=== PATIENT | female | born 1945 | race Caucasian/White ===

== ENCOUNTER → 2019-11-18 09:58 | Outpatient (BNVA) | payer MEDICARE, OTHER, SELFPAY | PROVIDERS: Referring Provider Family Medicine; Visit Provider Internal Medicine | DX: R79.89 Other specified abnormal findings of blood chemistry (principal); E03.9 Hypothyroidism, unspecified; E04.2 Nontoxic multinodular goiter | CPT/HCPCS: 99203 ==

== ENCOUNTER 2019-12-10 09:51 | Outpatient (CLI) | payer MEDICARE, OTHER, SELFPAY ==
--- NOTE | 2019-12-10 10:15 | US_ITS ---
WS: [id number] Thyroid ultrasound, 12/10/2019 Clinical Data: thyroid nodules Comparison: None. Findings: The right lobe of thyroid measures 4.7 cm x 1.3 cm x 1.4 cm. The left lobe measures 4.7 cm x 1.3 cm x 0.9 cm. The isthmus measured 0.2 mm. The echotexture of the thyroid is heterogeneous. No nodules, cysts or masses are seen. US/US thyroid 69200 Impression: Heterogeneous echotexture of the thyroid with no distinct nodules.
[2019-12-10 11:19] LABS: Free T4 Free Thyroxine 0.81 ng/dL (0.82-1.77); Thyroid Stimulating Hormone 31.48 uIU/mL (0.27-4.20)
[2019-12-11 08:52] LABS: T3 Total 63 ng/dL (76-181)
[2019-12-13 15:43] LABS: Thyroglobulin AB 7 IU/mL (< or = 1); Thyroid Peroxidase Antobodies 6 IU/mL (<9)
[2019-12-14 18:42] LABS: TSH Receptor Binding Antibody 1.06 IU/L (< OR = 2.00)
== END 2019-12-10 09:52 | disposition home or self-care (01) ==
LOC: RAD 09:57
PROVIDERS: Visit Provider Internal Medicine
DX: E04.2 Nontoxic multinodular goiter (principal); R79.89 Other specified abnormal findings of blood chemistry; E03.9 Hypothyroidism, unspecified
CPT/HCPCS: 36415; 76536; 83516; 84439; 84443; 84480; 86376; 86800

== ENCOUNTER → 2019-12-21 09:46 | Outpatient (BNVA) | payer MEDICARE, OTHER, SELFPAY | PROVIDERS: Visit Provider Internal Medicine | DX: E03.9 Hypothyroidism, unspecified (principal); E06.3 Autoimmune thyroiditis; K90.9 Intestinal malabsorption, unspecified; R10.13 Epigastric pain | CPT/HCPCS: 99214 ==

== ENCOUNTER → 2020-01-13 09:22 | Outpatient (BNVA) | payer MEDICARE, OTHER, SELFPAY | PROVIDERS: Visit Provider Internal Medicine | DX: E03.9 Hypothyroidism, unspecified (principal); E06.3 Autoimmune thyroiditis; E16.2 Hypoglycemia, unspecified; K90.9 Intestinal malabsorption, unspecified; R10.13 Epigastric pain | CPT/HCPCS: 99215 ==

== ENCOUNTER → 2020-03-17 11:15 | Outpatient (BNVA) | payer MEDICARE, OTHER, SELFPAY | PROVIDERS: Visit Provider Internal Medicine | DX: E03.8 Other specified hypothyroidism (principal); E06.3 Autoimmune thyroiditis; E16.2 Hypoglycemia, unspecified; K90.9 Intestinal malabsorption, unspecified; R10.13 Epigastric pain; R63.5 Abnormal weight gain | CPT/HCPCS: 36415; 82533; 84439; 86376; 99214 ==

== ENCOUNTER 2020-03-17 12:09 | Outpatient (CLI) | payer MEDICARE, OTHER, SELFPAY ==
[2020-03-17 13:25] LABS: Free T4 Free Thyroxine 0.99 ng/dL (0.82-1.77)
[2020-03-17 13:47] LABS: Cortisol Random 3.17 ug/mL (2.47-19.5)
[2020-03-20 18:47] LABS: Thyroid Peroxidase Antobodies 5 IU/mL (<9)
== END 2020-03-17 12:10 | disposition home or self-care (01) ==
PROVIDERS: PCP Family Medicine; Visit Provider Internal Medicine
DX: E03.8 Other specified hypothyroidism (principal); E06.3 Autoimmune thyroiditis; E16.2 Hypoglycemia, unspecified
CPT/HCPCS: 36415; 82533; 84439; 86376

== ENCOUNTER 2020-06-15 11:17 | Outpatient (CLI) | payer MEDICARE, OTHER, SELFPAY ==
[2020-06-19 12:19] LABS: Total Volume Urine 1750 ml
[2020-06-19 12:31] LABS: Creatinine 24 Hour Urine 647.5 mg/dL (601-1689); Urine Creatinine 37 mg/dL (28-217)
[2020-06-22 19:03] LABS: Total Urine 1750 mL; Urine Creatinine 0.68 g/24 h (0.50-2.15)
== END 2020-06-15 11:18 | disposition home or self-care (01) ==
PROVIDERS: PCP Family Medicine; Visit Provider Internal Medicine
DX: E03.8 Other specified hypothyroidism (principal); E06.3 Autoimmune thyroiditis; R63.5 Abnormal weight gain
CPT/HCPCS: 82530; 82570; 99214

== ENCOUNTER → 2020-08-01 10:08 | Outpatient (BNVA) | payer MEDICARE, OTHER, SELFPAY | PROVIDERS: PCP Family Medicine; Visit Provider Specialist | DX: G30.9 Alzheimer's disease, unspecified (principal); F02.80 Dementia in other diseases classified elsewhere, unspecified severity, without behavioral disturbance, psychotic disturbance, mood disturbance, and anxiety; R20.0 Anesthesia of skin; R20.2 Paresthesia of skin; Z87.891 Personal history of nicotine dependence | CPT/HCPCS: 96116; 99205 ==

== ENCOUNTER 2020-08-09 13:56 | Outpatient (CLI) | payer MEDICARE, OTHER, SELFPAY ==
--- NOTE | 2020-08-09 14:45 | CT_ITS ---
WS: [id number] CT HEAD TECHNIQUE: Noncontrast CT of the head obtained from the skullbase to the vertex. CLINICAL INFORMATION: R20.0 - Anesthesia of skin COMPARISON: None. DLP: 827.[address] scans at [facility] use at least one of these dose optimization techniques: automat ed exposure control; mA and/or kV adjustment per patient size (includes targeted exams where dose is matched to clinical indication); or iterative reconstruction. FINDINGS: No evidence of intracranial hemorrhage or mass effect. Ventricular system and basal cisterns are brower nt. Mild small vessel changes with moderate parenchymal volume loss. Chronic lacunar infarct or promi nent perivascular space left lateral basal ganglia. No extra-axial fluid collections. No evidence of mass or mass effect. Cavernous carotid calcification. Paranasal sinuses and mastoid air cells are well aerated. .Normal visualized soft tissues. Incidental cerebellar tonsillar ectopia. CT/CT head wo con* [id number] IMPRESSION: 1. No evidence of intracranial hemorrhage or mass effect. 2. Mild small vessel changes. Moderate parenchymal volume loss. 3. Chronic lacunar infarct or prominent perivascular space left lateral basal ganglia. 4. Incidental cerebellar tonsillar ectopia. 5. No acute intracranial findings.
--- NOTE | 2020-08-09 15:29 | XR_ITS ---
WS: [id number] Left foot, 3 views, 08/09/2020 Clinical Data: Z79.899 - Other half-way (current) drug therapy Comparison: None. Findings: No fractures or dislocations are seen. No bone destruction or erosion is noted. There is osteoarthrit is of the left first MCP joint.There is a small plantar spur and Achilles spur. 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
--- NOTE | 2020-08-09 15:29 | XR_ITS ---
WS: [id number] Chest 2 views, 08/09/2020 Clinical Data: Z79.899 - Other termite technician (current) drug therapy Comparison: None. Findings: No nodules, masses or effusions are seen. The heart is normal. The pulmonary vascularity is not increased. No pneumonia or pneumothorax is seen. The aortic arch and descending aorta show mild tortuosity. There are calcified granulomas in the right hilum extending into the right lower lobe. Th ere is a dextroscoliosis of the midthoracic spine. XR/XR chest 2V* [id number] Impression: Atherosclerosis and old granulomatous disease.
--- NOTE | 2020-08-09 15:29 | XR_ITS ---
WS: [id number] Right hand, 3 views, 08/09/2020 Clinical Data: Z79.899 - Other custodial (current) drug therapy Comparison: None. Findings: No fractures or dislocations are seen. There is degenerative change of the right first IP joint and the second through fifth IP joints. There is degenerative change of the right second and t hird MCP joints. There is periarticular calcification around the head of the right third metacarpal. There is calcification of the triradiate cartilage. XR/XR hand RT min 3V* [id number] Impression: 1. Diffuse degenerative changes of the right first IP joint and second through fifth PIP joints. 2. Osteoarthritic changes of the right second and third MCP joints.
--- NOTE | 2020-08-09 15:29 | XR_ITS ---
WS: [id number] Right foot, 3 views, 08/09/2020 Clinical Data: Z79.899 - Other penitentiary (current) drug therapy Comparison: None. Findings: No fractures or dislocations are seen. No bone destruction or erosion is noted. There is osteoarthrit ic change at the first MTP joint.There is medial subluxation of the right second toe. There is a plan tar spur. XR/XR foot RT min 3V* [id number] Impression: Osteoarthritis of the first MTP joint of the right foot.
--- NOTE | 2020-08-09 15:29 | XR_ITS ---
WS: [id number] Left hand, 3 views, 08/09/2020 Clinical Data: Z79.899 - Other [facility] (current) drug therapy Comparison: None. Findings: No fractures or dislocations are seen. The soft tissues are unremarkable. There is osteoarthritic david nges of the DIP joints of the second through fifth fingers. There is osteoarthritis of the left secon d and third MCP joints. There is calcification in the triradiate cartilage. XR/XR hand LT min 3V* [id number] Impression: 1. Osteoarthritis of the second through fifth DIP joints of the left hand. 2. Osteoarthritis of the second and third MCP joints of the left hand
== END 2020-08-09 13:57 | disposition home or self-care (01) ==
LOC: RADWPI 14:00
PROVIDERS: PCP Family Medicine; Visit Provider Specialist
DX: M19.041 Primary osteoarthritis, right hand (principal); R20.0 Anesthesia of skin; M19.042 Primary osteoarthritis, left hand; R20.2 Paresthesia of skin; F03.90 Unspecified dementia, unspecified severity, without behavioral disturbance, psychotic disturbance, mood disturbance, and anxiety; Z11.59 Encounter for screening for other viral diseases; Z11.1 Encounter for screening for respiratory tuberculosis; Z87.891 Personal history of nicotine dependence; Z79.899 Other long term (current) drug therapy; M19.90 Unspecified osteoarthritis, unspecified site; E03.8 Other specified hypothyroidism; E06.3 Autoimmune thyroiditis; R79.89 Other specified abnormal findings of blood chemistry
CPT/HCPCS: 36415; 70450; 71046; 73130; 73630; 82306; 82565; 84439; 84443; 85025; 85651; 86038; 86140; 86431; 86480; 86704; 86803; 87340; 99204

== ENCOUNTER 2020-08-09 14:05 | Outpatient (CLI) | payer MEDICARE, OTHER, SELFPAY ==
[2020-08-09 15:11] LABS: Basophils % 0.8 %; Eosinophils # 0.1 10^3/uL (0.0-0.8); Eosinophils % 1.2 %; Hematocrit 39.8 % (37.0-47.0); Hemoglobin 13.3 g/dL (11.5-15.3); Lymphocytes # 1.3 10^3/uL (0.8-4.8); Lymphocytes % 26.9 %; Mean Corpuscular HGB Conc 33.4 g/dL (30.0-36.0); Mean Corpuscular Volume 95.7 fL (81-99); Mean Platelet Volume 12.8 fL (7.4-10.4); Monocytes # 0.5 10^3/uL (0.2-0.9); Monocytes % 9.3 %; Neutrophils # 3.04 10^3/uL (1.8-7.7); Neutrophils % 61.6 %; Nucleated Red Blood Cells % 0 %; Platelet Count 214 10^3/cmm (130-400); Red Blood Count 4.16 10^6/uL (4.1-5.3); Red Cell Distribution Width 12.6 % (12.1-15.1); White Blood Count 4.9 10^3/uL (4.0-10.0)
[2020-08-09 15:46] LABS: 25 Hydroxy Vitamin D 64 ng/mL (30-100); Thyroid Stimulating Hormone 1.08 uIU/mL (0.27-4.20)
[2020-08-09 16:11] LABS: Erythrocyte Sedimentation Rate 16 mm/hr (0-15)
[2020-08-09 16:19] LABS: Free T4 Free Thyroxine 1.49 ng/dL (0.82-1.77)
[2020-08-09 16:46] LABS: Hepatitis B Core AB, Total Non-Reactive (Nonreactive); Hepatitis B Surface Antigen Non-Reactive (Nonreactive); Hepatitis C Virus Antibody Non-Reactive (Nonreactive)
[2020-08-11 15:07] LABS: Quantiferon Mitogen 7.91 IU/mL; Quantiferon Nil 0.02 IU/mL; Quantiferon TB Gold NEGATIVE (NEGATIVE)
[2020-08-14 13:41] LABS: Cyclic Citrullinated Peptide <16 UNITS
[2020-08-15 14:23] LABS: Anti-Nuclear Antibody Pattern Nuclear, Speckled; Anti-Nuclear Antibody Screen POSITIVE (NEGATIVE); Anti-Nuclear Antibody Titer 1:40 titer
== END 2020-08-09 14:06 | disposition home or self-care (01) ==
PROVIDERS: PCP Family Medicine; Visit Provider Internal Medicine Rheumatology
DX: M19.90 Unspecified osteoarthritis, unspecified site (principal); Z11.59 Encounter for screening for other viral diseases; Z79.899 Other long term (current) drug therapy; E03.8 Other specified hypothyroidism; E06.3 Autoimmune thyroiditis; R79.89 Other specified abnormal findings of blood chemistry; Z11.1 Encounter for screening for respiratory tuberculosis
CPT/HCPCS: 36415; 82306; 82565; 84439; 84443; 85025; 85651; 86038; 86140; 86431; 86480; 86704; 86803; 87340

== ENCOUNTER → 2020-08-21 10:17 | Outpatient (BNVA) | payer MEDICARE, OTHER, SELFPAY | PROVIDERS: PCP Family Medicine; Visit Provider Specialist | DX: G30.9 Alzheimer's disease, unspecified (principal); F02.80 Dementia in other diseases classified elsewhere, unspecified severity, without behavioral disturbance, psychotic disturbance, mood disturbance, and anxiety; R56.9 Unspecified convulsions; Z87.891 Personal history of nicotine dependence | CPT/HCPCS: 95816 ==

== ENCOUNTER → 2020-09-13 15:07 | Outpatient (BNVA) | payer MEDICARE, OTHER, SELFPAY | PROVIDERS: PCP Nurse Practitioner Family; Visit Provider Internal Medicine Rheumatology | DX: M19.041 Primary osteoarthritis, right hand (principal); M19.042 Primary osteoarthritis, left hand; Z87.39 Personal history of other diseases of the musculoskeletal system and connective tissue; K90.9 Intestinal malabsorption, unspecified; Z79.899 Other long term (current) drug therapy; Z87.891 Personal history of nicotine dependence | CPT/HCPCS: 99214 ==

== ENCOUNTER → 2020-10-30 10:27 | Outpatient (BNVA) | payer MEDICARE, OTHER, SELFPAY | PROVIDERS: PCP Nurse Practitioner Family; Visit Provider Specialist | DX: G30.9 Alzheimer's disease, unspecified (principal); F02.80 Dementia in other diseases classified elsewhere, unspecified severity, without behavioral disturbance, psychotic disturbance, mood disturbance, and anxiety | CPT/HCPCS: 99213 ==

== ENCOUNTER 2020-11-22 13:24 | Outpatient (CLI) | payer MEDICARE, OTHER, SELFPAY ==
--- NOTE | 2020-11-22 14:11 | MR_ITS ---
WS: [id number] MRI LUMBAR SPINE NONCONTRAST HISTORY: SPINAL STENOSIS, DORSALGIA, SCOLIOSIS COMPARISON: 07/26/2014 TECHNIQUE: Sagittal and axial multisequence imaging is submitted. Moderate LEFT scoliosis lumbar spine with asymmetric disc space narrowing. No acute marrow edema or fracture. Severe disc space narrowing and desiccation with endplate osteophytes. Conus terminates normally at L1. L1-L2: Severe bilateral facet joint arthritis, RIGHT greater than LEFT. Moderate stenosis involving t he RIGHT foramen. Mild stenosis on the LEFT. L2-L3: Severe bilateral facet joint arthritis and ligamentum flavum arthritis. Asymmetric and most si gnificant on the RIGHT. There is encroachment into the thecal sac with disc and osteophyte narrowing of the RIGHT foramen which is moderate. Mild narrowing on the LEFT. L3-L4: Diffuse annular disc bulging and osteophytic ridging. Small central disc protrusion contacting the RIGHT traversing L4 nerve root. Marked RIGHT facet joint arthritis and ligamentum flavum hypertr ophy causing moderate RIGHT foraminal stenosis and mild on the LEFT. L4-L5: Diffuse moderate asymmetric disc bulging with osteophytosis and ligamentum flavum and facet ar thritis. Slightly greater facet joint arthritis on the LEFT. Moderate central and RIGHT foraminal lucinda nosis. Severe LEFT foraminal stenosis. Disc and osteophyte contacting the L5 nerve roots bilaterally but greatest on the LEFT. L5-S1: Diffuse asymmetric disc bulging. Severe facet joint arthritis and ligamentum flavum hypertroph y, greatest on the LEFT. Severe LEFT and mild RIGHT foraminal stenosis. Mild contact on the S1 nerve roots. Prior RIGHT L5 hemilaminectomy. As compared to the prior study from 2014 there is been a moderate progression in the facet joint arth ritis, scoliosis and stenoses. MR/MR lumbar spine wo con* [id number] IMPRESSION: 1. LEFT convex scoliosis with advancing facet disease, disc disease and stenos es. 2. Moderate RIGHT foraminal stenosis at L1-2 and L2-3. 3. Moderate RIGHT foraminal stenosis at L3-4 with a central disc protrusion co ntacting the RIGHT traversing L4 nerve root. 4. Severe LEFT foraminal stenosis at L4-5 due to disc and osteophyte disease a nd facet arthritis. 5. Moderate central and RIGHT foraminal stenosis at L4-5. 6. Severe LEFT and mild RIGHT foraminal stenosis at L5-S1. Disc is contacting the S1 nerve roots bilaterally.
--- NOTE | 2020-11-22 14:11 | MR_ITS ---
WS: [id number] MRI THORACIC SPINE noncontrast. HISTORY: SPINAL STENOSIS, DORSALGIA, SCOLIOSIS COMPARISON: None available. TECHNIQUE: Multiplanar sequences are performed in sagittal and axial planes. Mild RIGHT curvature thoracic spine. No retropulsion of the vertebral bodies. Mild narrowing of the d isc spaces throughout. No marrow edema or fractures within the thoracic spine. Signal within the cord is normal. No cord enlargement or atrophy. Conus tapers normally and ends near T12-L1. T1-2: Normal. T2-3: Moderate facet joint arthritis on the RIGHT causing moderate RIGHT foraminal stenosis. T3-4: Moderate RIGHT foraminal arthritis causing mild narrowing. T4-5: Moderate RIGHT facet arthritis. Mild foraminal narrowing. T5-6: Mild bilateral foraminal arthritis. Only minimal narrowing on the LEFT. T6-7: LEFT paracentral disc protrusion and mild bilateral foraminal narrowing. T7-8: Small LEFT paracentral disc protrusion and mild bilateral facet arthritis. Mild foraminal narr owing. T8-9: Bilateral facet joint arthritis. Moderate RIGHT foraminal narrowing. T9-10: Mild bilateral foraminal narrowing due to facet joint arthritis. T10-11: Mild bilateral facet joint arthritis and foraminal narrowing. T11-12: Normal. T12-L1: Broad-based central disc protrusion contacting and very slightly deforming the ventral thecal sac. Mild foraminal narrowing. Atherosclerosis aorta. No aneurysm. MR/MR thoracic spin wo con* [id number] IMPRESSION: 1. Mild RIGHT curvature thoracic spine. 2. Multilevel mild to moderate facet joint arthritis and disc disease. No acut e fractures. No severe central or foraminal stenosis. 3. Multilevel facet joint arthritis causing multilevel mild foraminal narrowin g as above. Most significant on the RIGHT at T2-3 is moderate. 4. Small LEFT paracentral disc protrusions at T6-7 and T7-8.
== END 2020-11-22 13:25 | disposition home or self-care (01) ==
PROVIDERS: PCP Nurse Practitioner Family; Visit Provider Nurse Practitioner Family
DX: M48.00 Spinal stenosis, site unspecified (principal); M41.9 Scoliosis, unspecified; M51.24 Other intervertebral disc displacement, thoracic region; M51.34 Other intervertebral disc degeneration, thoracic region; M47.814 Spondylosis without myelopathy or radiculopathy, thoracic region; M48.07 Spinal stenosis, lumbosacral region; M48.061 Spinal stenosis, lumbar region without neurogenic claudication; M25.78 Osteophyte, vertebrae; M51.26 Other intervertebral disc displacement, lumbar region; M51.36 Other intervertebral disc degeneration, lumbar region
CPT/HCPCS: 72146; 72148

== ENCOUNTER → 2020-12-07 13:01 | Outpatient (BNVA) | payer MEDICARE, OTHER, SELFPAY | PROVIDERS: PCP Nurse Practitioner Family; Referring Provider Nurse Practitioner Family; Visit Provider Anesthesiology Pain Medicine | DX: G89.29 Other chronic pain (principal); M19.041 Primary osteoarthritis, right hand; M19.042 Primary osteoarthritis, left hand; M47.816 Spondylosis without myelopathy or radiculopathy, lumbar region; M47.814 Spondylosis without myelopathy or radiculopathy, thoracic region; M51.36 Other intervertebral disc degeneration, lumbar region; Z79.899 Other long term (current) drug therapy | CPT/HCPCS: 99205 ==

== ENCOUNTER → 2020-12-11 14:50 | Outpatient (BNVA) | payer MEDICARE, OTHER, SELFPAY | PROVIDERS: PCP Nurse Practitioner Family; Visit Provider Anesthesiology Pain Medicine | DX: M54.16 Radiculopathy, lumbar region (principal) | CPT/HCPCS: 64483; 64484; J1100; J3490 ==

== ENCOUNTER → 2020-12-14 13:22 | Outpatient (BNVA) | payer MEDICARE, OTHER, SELFPAY | PROVIDERS: PCP Nurse Practitioner Family; Visit Provider Anesthesiology Pain Medicine | DX: M48.062 Spinal stenosis, lumbar region with neurogenic claudication (principal); M47.816 Spondylosis without myelopathy or radiculopathy, lumbar region; M51.36 Other intervertebral disc degeneration, lumbar region; M47.814 Spondylosis without myelopathy or radiculopathy, thoracic region; M19.041 Primary osteoarthritis, right hand; M19.042 Primary osteoarthritis, left hand | CPT/HCPCS: 99214 ==

== ENCOUNTER → 2021-01-02 15:10 | Outpatient (BNVA) | payer MEDICARE, OTHER, SELFPAY | PROVIDERS: PCP Nurse Practitioner Family; Visit Provider Physician Assistant | DX: M51.36 Other intervertebral disc degeneration, lumbar region (principal) | CPT/HCPCS: 72110 ==

== ENCOUNTER → 2021-02-16 09:14 | Outpatient (BNVA) | payer MEDICARE, OTHER, SELFPAY | PROVIDERS: PCP Nurse Practitioner Family; Referring Provider Obstetrics & Gynecology; Visit Provider Obstetrics & Gynecology | DX: Z20.822 Contact with and (suspected) exposure to COVID-19 (principal); M48.062 Spinal stenosis, lumbar region with neurogenic claudication | CPT/HCPCS: 87635 ==

== ENCOUNTER 2021-02-21 06:48 | Day surgery (SDC) | payer MEDICARE, OTHER, SELFPAY ==
--- NOTE | 2021-02-19 11:44 | ANES.PREANE2 ---
Pre-Anesthetic Assessment Pre-Anesthetic Assessment: Height/Weight: Height 1.55 m Weight 72.121 kg Preop Diagnosis: Back pain Proposed Procedure: Operation Date: 02/21/21 10:20 Proposed Procedures p Lumbar Spine Decompression [id number](Not Applicable) - Brendon Rubin DO Familial anesthetic complications: none Social: Social History: No alcohol and No tobacco Exam: Pre-Anes Outpt Exam: alert, oriented x 3, clear to auscultation bilaterally and regular rate & rhythm Airway: MP: 1 Dentition: Other (veneers) Musc/skel: Musc/skel: Fibromyalgia and OA/DJD Anesthetic Plan: ASA status: 2 Anesthesia: General Risk of > 500 ml blood loss (7ml/kg in children): No PFSH Anesthesia PFSH: Medical History Cataract Fibromyalgia GERD (gastroesophageal reflux disease) High risk medication use History of calcium pyrophosphate deposition disease (CPPD) Hyperlipidemia Immunization counseling Inflammatory arthritis Osteoarthritis Osteoarthritis of hands, bilateral Raynauds disease Surgical History H/O: hysterectomy History of appendectomy History of back surgery History of cholecystectomy Family History Father Diabetes Embolism Mother Diabetes Stroke Sister No problems noted. Sister Cancer breast Diabetes Kidney failure Brother Cancer lung? Other Lupus Rheumatoid arthritis Denies family history of CAD (coronary artery disease) Chronic kidney disease (CKD) Lung disease Social History Smoking and tobacco status: never smoked Second hand smoke exposure: No Alcohol intake: former Caregiver/support person: Yes Lives independently: Yes History of recent travel: No Data Anesthesia Cardiac Studies: No Data to Display
--- NOTE | 2021-02-19 11:46 | P.ANESUD_ITS ---
Pre-Anesthetic Update Pre-Anesthetic Assessment: Date of Surgery/Procedure: 02/19/21 Preop Carly gnosis: Back pain Proposed Procedure: Operation Date: 02/21/21 10:20 Proposed Procedures p Lumbar Spine Decompression [id number](Not Applicable) - Brendon Rubin DO Other Pertinent Information: Other Pertinent Information: Patient states her veneers got knocked out with last aneshtesia Cardiac Studies: No Data to Display
--- NOTE | 2021-02-19 11:46 | ANES.PAUD2 ---
Pre-Anesthetic Update Pre-Anesthetic Assessment: Date of Surgery/Procedure: 02/19/21 Preop Diagnosis: Back pain Proposed Procedure: Operation Date: 02/21/21 10:20 Proposed Procedures p Lumbar Spine Decompression [id number](Not Applicable) - Brendon Rbuin DO Other Pertinent Information: Other Pertinent Information: Patient states her veneers got knocked out with last aneshtesia Cardiac Studies: No Data to Display
[2021-02-19 12:27] LABS: Anion Gap 15.2 (5-19); Blood Urea Nitrogen 25 mg/dL (8-23); Carbon Dioxide 26 mmol/L (22-29); Chloride 98 mmol/L (98-107); Glucose 143 mg/dL (65-115); Osmolality Calculated 289 mOsm/kg (285-295); Potassium 3.2 mmol/L (3.5-5.1); Sodium 136 mmol/L (136-145)
[2021-02-21] VITALS (16 sets, daily range): BP systolic 131–161; BP diastolic 67–104; PULSE 58–112; RESP 14–26; TEMP 36.1–37.1; O2SAT 88–100
--- NOTE | 2021-02-21 | SCC_ITS ---
Procedure Done: 1. Right L3/4 laminectomy with partial facetectomy 2. Right L4/5 laminectomy with partial facetectomy 20.5 seconds of fluoroscopic guidance, for a cumulative dose of 5.95 mGy, was provided to Dr. Rubin by the radiology department. C-arm images of the lumbar spine were saved for the patient's permanent record. [facility]
--- NOTE | 2021-02-21 | XR_ITS ---
WS: [id number] C-ARM RADIOGRAPHS LUMBAR SPINE; 3 IMAGES HISTORY: decompression COMPARISON: None available. Intraoperative decompression of the lumbar spine. Marker is at the L3-4 level. XR/XR lumbar spine 1V [id number] IMPRESSION: Intraoperative lumbar spine decompression.
--- NOTE | 2021-02-21 06:48 | P.HP_ITS ---
Providers/Chief Complaint Primary Care Provider: Emerita Johnson NP Chief Complaint: lumbar decompression History of Present Illness Joana Maloney is a 75 year old female The patient states she has had back pain for years and a low back procedure that helped her for about 1 year. She reports equal back and leg pain with inability to walk distance due to the increased pain she is experiencing. She denies any specific injury. She has been involved in the pain clinic with different injections without much relief long- term. She was previously in a spinal cord stimulator trial but did not gain much relief and would not have that implanted. She describes her back pain is sharp stabbing aching. She reports numbness and tingling with weakness down both lower extremities. She denies any loss of bowel or bladder control.. The pain had gotten better but came back several months ago, Associated symptoms: Denies abdominal pain, chills, fatigue, fever(s), nausea or vomiting Review of Systems Narrative: General ROS: negative for weight changes, fever ENT ROS: negative for nasal congestion, drainage or bleeding, sore throat, dysphagia or ear pain Eyes: PERRL Hematological and Lymphatic ROS: negative for swollen glands or abnormal bleed ing Endocrine ROS: negative for polyuria/polydpsia or new changes in weight Respiratory ROS: negative for cough, shortness of breath, or wheezing Cardiovascular ROS: negative for chest pain or dyspnea on exertion Gastrointestinal ROS: negative for reflux, abdominal pain, change in bowel habits, or black or bloody stools Musculoskeletal ROS: negative for back pain, neck pain, or joint pain or swell ing except for current problem Neurological ROS: negative for TIA or stoke symptoms Skin: no rashes Medications/Allergies Home Medications Medication Instructions Recorded Confirmed Last Taken Type acetaminophen 500 mg tablet 500 mg PO Q6H PRN 11/18/19 02/19/21 Unknown History atorvastatin 40 mg tablet 40 mg PO DAILY 11/18/19 02/19/21 Unknown History dexlansoprazole 60 mg 60 mg PO DAILY 11/18/19 02/19/21 Unknown History capsule,biphase delayed release hydrochlorothiazide 25 mg tablet 25 mg PO DAILY 11/18/19 02/19/21 Unknown History metoprolol succinate 25 mg 25 mg PO DAILY 11/18/19 02/19/21 Unknown History tablet,extended release 24 hr famotidine 20 mg tablet 20 mg PO BID #180 tab 01/13/20 02/19/21 Unknown Rx levothyroxine 88 mcg tablet 88 mcg PO DAILY #90 tab 07/11/20 02/19/21 Unknown Rx Lactobacillus acidophilus 10,000 mmu cells PO DAILY 08/01/20 02/19/21 Unknown History krill 350 mg-omega-3 90 mg-dha 24 1 cap PO DAILY cap 08/01/20 02/19/21 Unknown History mg-epa 50 fx-itmtzka-bwrrg capsule diclofenac sodium 1 % topical gel 2 g TOPICAL QID #100 g 08/09/20 02/19/21 Un known Rx celecoxib 50 mg capsule 50 mg PO BID 12/07/20 02/19/21 Unknown History ibuprofen 200 mg capsule 200 mg PO Q6H PRN 12/07/20 02/19/21 Unknown History gabapentin 800 mg tablet 800 mg PO TID #90 tab 12/14/20 02/19/21 Unknown Rx donepezil 5 mg tablet 5 mg PO DAILY #90 tab 12/27/20 02/19/21 Unknown Rx DME medical bed #1 ea 01/19/21 Unknown Rx Medical Bed #1 ea 01/19/21 Unknown Rx Allergies Allergy/AdvReac Type Severity Reaction Status Date / Time Androgenic Anabolic Steroid Allergy ADR-Headach Verified 01/02/21 14:53 e PFSH Acute PFSH: Medical History Cataract Fibromyalgia GERD (gastroesophageal reflux disease) High risk medication use History of calcium pyrophosphate deposition disease (CPPD) Hyperlipidemia Immunization counseling Inflammatory arthritis Osteoarthritis Osteoarthritis of hands, bilateral Raynauds disease Surgical History H/O: hysterectomy History of appendectomy History of back surgery History of cholecystectomy Family History Father Diabetes Embolism Mother Diabetes Stroke Sister No problems noted. Sister Cancer breast Diabetes Kidney failure Brother Cancer lung? Other Lupus Rheumatoid arthritis Denies family history of CAD (coronary artery disease) Chronic kidney disease (CKD) Lung disease Social History Smoking and tobacco status: never smoked Second hand smoke exposure: No Alcohol intake: former Caregiver/support person: Yes Lives independently: Yes History of recent travel: No Vitals/I&O/Wt Weight last 48 hrs Weight 159 lb Physical Exam Narrative: EXAM NARRATIVE: CONSTITUTIONAL: The patient is a normal appearing [ ] in no apparent distress. GENERAL: Patient in no acute distress. CARDIAC: Regular rate and rhythm. CHEST: Normal inspiratory effort, normal respiratory rate. ABDOMEN: Soft and nontender. SKIN: Clear, warm and intact. NEURO?PSYCH: The patient is alert and oriented to person, place and time. Sensorv /SILT Motor StrengthShoulder abduction C5 5/5Wrist extension C6 5/5Elbow extension C7 5/5Hand Interface Engineer C8 5/5Finger abduction T15/5 Radial/ Ulnar/ Median n intact LowerSensory (SILT)Motor StrengthHin flexion L2/3Ant/inner thigh 5/5Hip adduction L2/3 5/5Knee extension L4 Lat thigh, 5/5Toe dorsiflexion L5 5/5Ankle dorsiflexion L5/ [id number] flexion S1 5/5 DTRBleeps 2+Triceps 2+Brachioradialis 2+Patellar 2+Achilles 2+ MUSCULOSKELETAL: [] UPPEREXTREMITIES: The patient had full active ROM in fingers, wrist, elbow, and shoulder. The patient demonstrated ability to fully flex/extend/abduc t/adduct fingers, make ok sign, cross 2nd/3rd digits, extend 1st digit fully.. Radial pulse 2+, CR<2 seconds. LOWER EXTREMITIES: Pt has full, active ROM of toes, ankle, knee, and hip. Dorsalis pedis/posterior tibialis pulses 2+, CR<2 seconds. SPINE: Skin warm, dry, intact. Data : 02/19/21 11:22 A&P Assessment and plan (1) Lumbar stenosis with neurogenic claudication: Lumbar decompression Status: Acute Attestations Medical Necessity Statement*: failed conservative tx Coding Level of Care Code Acute Corporate Attorney for [facility] F[facility] Diagnoses Lumbar stenosis with neurogenic claudication M48.062
[2021-02-21] MEDS: sodium chloride 0.9% 1,000 ML 30 ML IV (07:42)
--- NOTE | 2021-02-21 07:48 | P.ANESUD_ITS ---
Pre-Anesthetic Update Pre-Anesthetic Assessment: Date of Surgery/Procedure: 02/21/21 Preop Carly gnosis: Lumbar stenosis with neurogenic claudication Proposed Procedure: Operation Date: 02/21/21 08:30 Proposed Procedures p Lumbar Spine Decompression [id number] 47539(Not Applicable) - Brendon Rubin, DO Any changes to Pre-Anesthetic Assessment?: No Last Intake: Intake Last Liquid Date 02/20/21 Last Liquid Time 18:00 Last Solid Date 02/20/21 Last Solid Time 18:00 Labs Last 48hrs: Laboratory Results - last 48 hr 02/19/21 11:22 Sodium 136 Potassium 3.2 L Chloride 98 Carbon Dioxide 26 Anion Gap 15.2 BUN 25 H Creatinine 1.1 H GFR Calculation Not Reportable Glucose 143 H Calculated Osmolal ity 289 Calcium 9.0 Vitals: Temperature 97 F L 02/21/21 07:14 Temperature Source Temporal Artery S can 02/21/21 07:14 Pulse Rate 58 L 02/21/21 07:14 Respiratory Rate 18 02/21/21 07:14 Blood Pressure 144/87 02/21/21 07:14 Blood Pressure Suzanne n 106 02/21/21 07:14 Pulse Oximetry 98 02/21/21 07:14 Oxygen Delivery Me thod 02/21/21 07:18 Exam: Pre-Anes Outpt Exam: alert, oriented x 3, clear to auscultation bilaterally and regular rate & rhythm Cardiac Studies: No Data to Display
--- NOTE | 2021-02-21 09:25 | SUR.PHASEI ---
PT ON RA , GOOD RESP NOTED SATS 97% PT DENIES PAIN AND NAUSEA, PT VSS PT ABLE TO MOVE ALL EXTREMITIES TO COMMAND AND STRONGLY
--- NOTE | 2021-02-21 09:31 | PM.OP ---
Operative Report Date of procedure: February 21, 2021 Pre-op Diagnosis: Lumbar stenosis with neurogenic claudication Post-op diagnosis: same Procedure Done: 1. Right L3/4 laminectomy with partial facetectomy 2. Right L4/5 laminectomy with partial facetectomy Surgeon: Brendon Rubin Web Ui Designer: Joe Watkins Web Ui Designer: The surgical elastic knitter hand frame, Joe Watkins, AIYANA was needed for his expertise under the microscope. He was important and necessary throughout the procedure to complete in a safe and timely manner. He assisted with patient positioning prepping and draping tissue retraction suctioning of the operative field protection of the dural sac and tissue closure Anesthesia: General Estimated blood loss (mL): 5 Condition: stable Disposition: PACU Procedure: Patient is brought to the operative suite. After undergoing anesthesia they are placed in the prone position. All areas of impingement are well padded. Patient is then prepped and draped in the normal sterile fashion. A skin incision is made over the L3/4 level. This is confirmed under c-arm guidance. A series of dilators are passed and the tubular retractor is docked on the L3 lamina. A bovie is used to clear the soft tissue off the lamina and the L 3/4 facet joint. A high speed jessica is then used to perform the laminectomy and take down the medial aspect of the L 3/4 facet joint. A kerrison rongeure was then used to take down the remaining lamina and smooth the edge of the laminectomy up to the point where the ligamentum flavum attaches. Attention was then brought to the medial aspect of the facet joint. The remaining medial aspect of the superior and inferior aspect of the facet joint were taken down with the kerrison from the pedicle of L3 to L 4. The facet joint had significant hypertrophy. Attention was then brought to the Ligamentum Flavum. The ligament was taken down from the lamina of L3 to L4 and out medially to the remaining facet joint. The ligament was scarred down. The dura was then exposed. The dura was in good repair. The L3 nerve was then traced with a curette out the L3/4 foramen and found to be adequately decompressed. The L4 nerve was traced with a curette around the L4 pedicle. The lateral recess was opened with a kerrison helping to further decompress the L4 nerve. A skin incision is made over the L4/5 level. This is confirmed under c-arm guidance. A series of dilators are passed and the tubular retractor is docked on the L4 lamina. A bovie is used to clear the soft tissue off the lamina and the L 4/5 facet joint. A high speed jessica is then used to perform the laminectomy and take down the medial aspect of the L 4/5 facet joint. A kerrison rongeure was then used to take down the remaining lamina and smooth the edge of the laminectomy up to the point where the ligamentum flavum attaches. Attention was then brought to the medial aspect of the facet joint. The remaining medial aspect of the superior and inferior aspect of the facet joint were taken down with the kerrison from the pedicle of L4 to L 5. The facet joint had significant hypertrophy. Attention was then brought to the Ligamentum Flavum. The ligament was taken down from the lamina of L4 to L5 and out medially to the remaining facet joint. The ligament was thick. The dura was then exposed. The dura was in good repair. The L4 nerve was then traced with a curette out the L4/5 foramen and found to be adequately decompressed. The L5 nerve was traced with a curette around the L5 pedicle. The lateral recess was opened with a kerrison helping to further decompress the L5 nerve. Wound is then irrigated copiously with saline and surgiflo is used to stop any bleeding. The tubular retractor is removed and the wound is closed with vicryl and monocryl suture. Glue is then used to protect the wound. A sterile dressing is then placed. Patient was then placed in the supine position and transferred to the PACU in stable condition.
[2021-02-21] MEDS: meperidine 50 mg/mL INJ 12.5 MG IVP ×2 (09:47→09:54)
--- NOTE | 2021-02-21 10:16 | SUR.PHASEI ---
0947 PT SHIVERING HARD UNCONTROLLED WARM BLANKETS EARLIER AND REPEATED NOW SEE MED GIVEN 0953 PT STILL SHIVERING UNCONTROLLABLY , SEE MED REPEATED 1011 PT NOT SHIVERING NOW, SLEEPS IF NOT DISTURBED SATS DOWN TO 90% 3LNC TO PT , PT AWAKES EASILY SATS 99% PT TO OPS, HANDOFF AT BEDSIDE DRESSING TO LOWER BACK D/I
[2021-02-21] MEDS: HYDROcodone-acetaminophen 5-325 mg Tablet 1 TAB PO (10:52)
--- NOTE | 2021-02-21 11:46 | ANE.PACU2 ---
Inpatient post-anesthesia follow up: Airway intact: Yes Vital signs: Temperature 98.7 F Pulse Rate 77 Respiratory Rate 18 Blood Pressure 135/85 Pulse Oximetry 98 Oxygen Delivery Me thod Room Air Oxygen Flow Rate 1 Fraction of Inspir ed Oxygen Hydration adequate: Yes Nausea and vomiting: No Pain level: 3 Mental status: Baseline
== END 2021-02-21 11:14 | disposition home or self-care (01) ==
PROVIDERS: Anesthesiology; PCP Nurse Practitioner Family; Visit Provider Orthopaedic Surgery
PROC: (CPT 63005; principal; 2021-02-21 08:30)
DX: M48.062 Spinal stenosis, lumbar region with neurogenic claudication (principal); M79.7 Fibromyalgia; K21.9 Gastro-esophageal reflux disease without esophagitis; E78.5 Hyperlipidemia, unspecified; M19.042 Primary osteoarthritis, left hand; M19.041 Primary osteoarthritis, right hand; Z83.3 Family history of diabetes mellitus; Z82.3 Family history of stroke
CPT/HCPCS: 63047; 63048; 36415; 72020; 76000; 80048; J0690; J1100; J2175; J2370; J2405; J2704; J2710; J3010; J3490; J7030

== ENCOUNTER → 2021-05-08 14:01 | Outpatient (BNVA) | payer MEDICARE, OTHER, SELFPAY | PROVIDERS: PCP Nurse Practitioner Family; Visit Provider Orthopaedic Surgery | DX: Z48.89 Encounter for other specified surgical aftercare (principal); M48.062 Spinal stenosis, lumbar region with neurogenic claudication; M47.896 Other spondylosis, lumbar region | CPT/HCPCS: 72110 ==

== ENCOUNTER → 2021-05-10 14:00 | Outpatient (BNVA) | payer MEDICARE, OTHER, SELFPAY | PROVIDERS: PCP Nurse Practitioner Family; Referring Provider Orthopaedic Surgery; Visit Provider Anesthesiology Pain Medicine | DX: M48.062 Spinal stenosis, lumbar region with neurogenic claudication (principal); M47.816 Spondylosis without myelopathy or radiculopathy, lumbar region; M47.814 Spondylosis without myelopathy or radiculopathy, thoracic region; M51.36 Other intervertebral disc degeneration, lumbar region; M19.041 Primary osteoarthritis, right hand; M19.042 Primary osteoarthritis, left hand; M25.561 Pain in right knee; Z79.891 Long term (current) use of opiate analgesic | CPT/HCPCS: 99214 ==

== ENCOUNTER → 2021-07-03 10:43 | Outpatient (BNVA) | payer MEDICARE, OTHER, SELFPAY | PROVIDERS: PCP Nurse Practitioner Family; Visit Provider Anesthesiology Pain Medicine | DX: M48.062 Spinal stenosis, lumbar region with neurogenic claudication (principal); M51.36 Other intervertebral disc degeneration, lumbar region; M47.816 Spondylosis without myelopathy or radiculopathy, lumbar region; M47.814 Spondylosis without myelopathy or radiculopathy, thoracic region; M19.042 Primary osteoarthritis, left hand; M19.041 Primary osteoarthritis, right hand; M25.561 Pain in right knee; M79.604 Pain in right leg; M79.605 Pain in left leg; Z87.891 Personal history of nicotine dependence | CPT/HCPCS: 99214 ==

== ENCOUNTER → 2021-07-10 13:02 | Outpatient (BNVA) | payer MEDICARE, OTHER, SELFPAY | PROVIDERS: PCP Nurse Practitioner Family; Visit Provider Anesthesiology Pain Medicine | DX: M48.062 Spinal stenosis, lumbar region with neurogenic claudication (principal); M47.816 Spondylosis without myelopathy or radiculopathy, lumbar region | CPT/HCPCS: 64493; 64494; 64495; J3490 ==

== ENCOUNTER → 2021-07-24 09:55 | Outpatient (BNVA) | payer MEDICARE, OTHER, SELFPAY | PROVIDERS: PCP Nurse Practitioner Family; Visit Provider Anesthesiology Pain Medicine | DX: M48.062 Spinal stenosis, lumbar region with neurogenic claudication (principal); M51.36 Other intervertebral disc degeneration, lumbar region; M47.816 Spondylosis without myelopathy or radiculopathy, lumbar region; M47.814 Spondylosis without myelopathy or radiculopathy, thoracic region; M19.041 Primary osteoarthritis, right hand; M19.042 Primary osteoarthritis, left hand; M17.11 Unilateral primary osteoarthritis, right knee; M79.601 Pain in right arm; M79.605 Pain in left leg; Z87.891 Personal history of nicotine dependence | CPT/HCPCS: 99214 ==

== ENCOUNTER → 2021-08-20 13:22 | Outpatient (BNVA) | payer MEDICARE, OTHER, SELFPAY | PROVIDERS: PCP Nurse Practitioner Family; Referring Provider Nurse Practitioner Family; Visit Provider Otolaryngology | DX: H90.3 Sensorineural hearing loss, bilateral (principal); H93.13 Tinnitus, bilateral | CPT/HCPCS: 99203; 99204 ==

== ENCOUNTER → 2021-11-19 09:49 | Outpatient (BNVA) | payer MEDICARE, OTHER, SELFPAY | PROVIDERS: PCP Nurse Practitioner Family; Visit Provider Specialist | DX: G31.84 Mild cognitive impairment of uncertain or unknown etiology (principal); R20.0 Anesthesia of skin; R20.2 Paresthesia of skin; M19.90 Unspecified osteoarthritis, unspecified site | CPT/HCPCS: 36415; 82550; 82607; 85651; 86160; 86162; 86200; 86235; 86255; 86376; 96116; 99214 ==

== ENCOUNTER → 2021-12-17 08:42 | Outpatient (BNVA) | payer MEDICARE, OTHER, SELFPAY | PROVIDERS: PCP Nurse Practitioner Family; Visit Provider Anesthesiology Pain Medicine | DX: M48.062 Spinal stenosis, lumbar region with neurogenic claudication (principal); M47.816 Spondylosis without myelopathy or radiculopathy, lumbar region; M47.814 Spondylosis without myelopathy or radiculopathy, thoracic region; M51.36 Other intervertebral disc degeneration, lumbar region; M25.561 Pain in right knee; M79.604 Pain in right leg; M79.605 Pain in left leg; M19.041 Primary osteoarthritis, right hand; M19.042 Primary osteoarthritis, left hand | CPT/HCPCS: 99214 ==

== ENCOUNTER → 2022-01-01 09:28 | Outpatient (BNVA) | payer MEDICARE, OTHER, SELFPAY | PROVIDERS: PCP Nurse Practitioner Family; Visit Provider Anesthesiology Pain Medicine | DX: M48.062 Spinal stenosis, lumbar region with neurogenic claudication (principal); M47.816 Spondylosis without myelopathy or radiculopathy, lumbar region; M51.36 Other intervertebral disc degeneration, lumbar region; M47.814 Spondylosis without myelopathy or radiculopathy, thoracic region; M19.042 Primary osteoarthritis, left hand; M19.041 Primary osteoarthritis, right hand; M25.561 Pain in right knee; Z87.891 Personal history of nicotine dependence | CPT/HCPCS: 99214 ==

== ENCOUNTER → 2022-01-15 12:53 | Outpatient (BNVA) | payer MEDICARE, OTHER, SELFPAY | PROVIDERS: PCP Nurse Practitioner Family; Visit Provider Anesthesiology Pain Medicine | DX: M47.816 Spondylosis without myelopathy or radiculopathy, lumbar region (principal); M48.062 Spinal stenosis, lumbar region with neurogenic claudication; Z87.891 Personal history of nicotine dependence | CPT/HCPCS: 64493; 64494; 64495; J3490 ==

== ENCOUNTER → 2022-02-04 10:05 | Outpatient (BNVA) | payer MEDICARE, OTHER, SELFPAY | PROVIDERS: PCP Nurse Practitioner Family; Visit Provider Anesthesiology Pain Medicine | DX: M48.062 Spinal stenosis, lumbar region with neurogenic claudication (principal); M47.816 Spondylosis without myelopathy or radiculopathy, lumbar region; M47.814 Spondylosis without myelopathy or radiculopathy, thoracic region; M51.36 Other intervertebral disc degeneration, lumbar region; M19.041 Primary osteoarthritis, right hand; M19.042 Primary osteoarthritis, left hand; M79.604 Pain in right leg; M79.605 Pain in left leg; M25.561 Pain in right knee; Z87.891 Personal history of nicotine dependence | CPT/HCPCS: 99214 ==

== ENCOUNTER 2022-03-27 06:00 | Outpatient (RCR) | payer MEDICARE, MEDICAID, OTHER, SELFPAY | END 2022-03-30 23:59 | disposition home or self-care (01) | LOC: MPT 06:00 | PROVIDERS: PCP Nurse Practitioner Family; Visit Provider Nurse Practitioner Family | DX: M54.50 Low back pain, unspecified (principal); M48.061 Spinal stenosis, lumbar region without neurogenic claudication; M79.7 Fibromyalgia | CPT/HCPCS: 97110; 97162 ==

== ENCOUNTER 2022-03-31 06:00 | Outpatient (RCR) | payer MEDICARE, OTHER, MEDICAID, SELFPAY | END 2022-04-30 23:59 | disposition home or self-care (01) | LOC: MPT 06:00 | PROVIDERS: PCP Nurse Practitioner Family; Visit Provider Nurse Practitioner Family | DX: M54.50 Low back pain, unspecified (principal); M79.7 Fibromyalgia | CPT/HCPCS: 97110; 97140; G0283 ==

== ENCOUNTER → 2022-05-14 09:47 | Outpatient (BNVA) | payer MEDICARE, MEDICAID, OTHER, SELFPAY | PROVIDERS: PCP Nurse Practitioner Family; Visit Provider Anesthesiology Pain Medicine | DX: M48.062 Spinal stenosis, lumbar region with neurogenic claudication (principal); M19.041 Primary osteoarthritis, right hand; M19.042 Primary osteoarthritis, left hand; M47.816 Spondylosis without myelopathy or radiculopathy, lumbar region; M47.814 Spondylosis without myelopathy or radiculopathy, thoracic region; M51.36 Other intervertebral disc degeneration, lumbar region; M25.561 Pain in right knee | CPT/HCPCS: 99214 ==

== ENCOUNTER → 2022-07-22 13:32 | Outpatient (BNVA) | payer MEDICARE, MEDICAID, OTHER, SELFPAY | PROVIDERS: PCP Nurse Practitioner Family; Visit Provider Anesthesiology Pain Medicine | DX: M47.816 Spondylosis without myelopathy or radiculopathy, lumbar region (principal); M48.062 Spinal stenosis, lumbar region with neurogenic claudication | CPT/HCPCS: 64635; 64636; J1030 ==

== ENCOUNTER → 2022-08-01 12:19 | Outpatient (BNVA) | payer MEDICARE, MEDICAID, OTHER, SELFPAY | PROVIDERS: PCP Nurse Practitioner Family; Visit Provider Anesthesiology Pain Medicine | DX: M47.816 Spondylosis without myelopathy or radiculopathy, lumbar region (principal); M48.062 Spinal stenosis, lumbar region with neurogenic claudication | CPT/HCPCS: 64635; 64636; J1030 ==

== ENCOUNTER → 2022-08-22 09:49 | Outpatient (BNVA) | payer MEDICARE, MEDICAID, OTHER, SELFPAY | PROVIDERS: PCP Nurse Practitioner Family; Visit Provider Anesthesiology Pain Medicine | DX: M47.814 Spondylosis without myelopathy or radiculopathy, thoracic region (principal); M48.062 Spinal stenosis, lumbar region with neurogenic claudication; M47.816 Spondylosis without myelopathy or radiculopathy, lumbar region; M51.36 Other intervertebral disc degeneration, lumbar region; M19.042 Primary osteoarthritis, left hand; M19.041 Primary osteoarthritis, right hand; M25.561 Pain in right knee | CPT/HCPCS: 99214 ==

== ENCOUNTER → 2022-09-04 09:24 | Outpatient (BNVA) | payer MEDICARE, MEDICAID, OTHER, SELFPAY | PROVIDERS: PCP Family Medicine; Visit Provider Family Medicine | DX: E03.8 Other specified hypothyroidism (principal); E06.3 Autoimmune thyroiditis; E78.5 Hyperlipidemia, unspecified; M19.90 Unspecified osteoarthritis, unspecified site; R73.03 Prediabetes | CPT/HCPCS: 73562; 80053; 80061; 84439; 84443; 84481 ==

== ENCOUNTER → 2022-09-10 12:41 | Outpatient (BNVA) | payer MEDICARE, MEDICAID, OTHER, SELFPAY | PROVIDERS: PCP Family Medicine; Referring Provider Family Medicine; Visit Provider Orthopaedic Surgery | DX: M17.11 Unilateral primary osteoarthritis, right knee (principal) | CPT/HCPCS: 20610; 99203; J0702; J3490 ==

== ENCOUNTER → 2022-09-25 14:51 | Outpatient (BNVA) | payer MEDICARE, MEDICAID, OTHER, SELFPAY | PROVIDERS: PCP Family Medicine; Visit Provider Emergency Medicine | DX: R19.8 Other specified symptoms and signs involving the digestive system and abdomen (principal); R19.7 Diarrhea, unspecified | CPT/HCPCS: 83630; 87177; 87209; 87338; 87493; 87506 ==

== ENCOUNTER → 2022-11-13 13:04 | Outpatient (BNVA) | payer MEDICARE, OTHER, MEDICAID, SELFPAY | PROVIDERS: PCP Family Medicine; Referring Provider Emergency Medicine; Visit Provider Specialist | DX: M17.0 Bilateral primary osteoarthritis of knee | CPT/HCPCS: 20610; 73560; 73565; 99204; J7326 ==

== ENCOUNTER → 2022-11-26 10:51 | Outpatient (BNVA) | payer MEDICARE, OTHER, MEDICAID, SELFPAY | PROVIDERS: PCP Family Medicine; Visit Provider Family Medicine | DX: E03.9 Hypothyroidism, unspecified (principal); E03.8 Other specified hypothyroidism; E06.3 Autoimmune thyroiditis; K92.2 Gastrointestinal hemorrhage, unspecified | CPT/HCPCS: 80048; 83540; 84439; 84443; 84481; 85025 ==

== ENCOUNTER → 2023-01-02 12:07 | Outpatient (BNVA) | payer MEDICARE, OTHER, MEDICAID, SELFPAY | PROVIDERS: PCP Family Medicine; Visit Provider Nurse Practitioner Family | DX: R25.3 Fasciculation (principal) | CPT/HCPCS: 80053 ==

== ENCOUNTER 2023-01-03 05:05 | Emergency (ER) | payer MEDICARE, OTHER, MEDICAID, SELFPAY ==
[2023-01-03 05:05] VITALS: BP 120/79; PULSE 66; RESP 18; TEMP 36.6; O2SAT 96; BMI 27.2
--- NOTE | 2023-01-03 05:13 | CTR_ITS ---
PROCEDURE INFORMATION: Exam: CT Head Without Contrast Exam date and time: 01/03/2023 5:28 AM Age: 77 years old Clinical indication: Injury or trauma; Blunt trauma (contusions or hematomas); Consciousness not specified; Injury details: Fall a week and half ago, old bruising to right forehead, patient says she came in today because he hands and legs are twitching. TECHNIQUE: Imaging protocol: Computed tomography of the head without contrast. Radiation optimization: All CT scans at this facility use at least one of these dose optimization techniques: automated exposure control; mA and/or kV adjustment per patient size (includes targeted exams where dose is matched to clinical indication); or iterative reconstruction. REPORTING DATA: Count of CT and Cardiac NM exams in prior 12 months: This patient has received 0 known CTs and 0 known cardiac nuclear medicine studies in the 12 months prior to the current study. COMPARISON: CT head wo con* [id number] 08/09/2020 2:39 PM RADIATION DOSE METRICS: Total DLP (mGy-cm): 1075.1 FINDINGS: Brain: Normal. No hemorrhage. Unremarkable white matter. No mass effect. Cerebral ventricles: No ventriculomegaly. Paranasal sinuses: Visualized sinuses are unremarkable. No fluid levels. Mastoid air cells: Visualized mastoid air cells are well aerated. Bones/joints: Unremarkable. No acute fracture. Soft tissues: Unremarkable. CT/CT head wo con* [id number] IMPRESSION: No acute intracranial abnormality.
--- NOTE | 2023-01-03 05:13 | ED_ITS ---
Documented by User: Aicha Aguero MD 01/03/23 05:17 HPI - Fall General: Chief Complaint: Fall Stated Complaint: Fall x 1 week Time Seen by Provider: 01/03/23 05:06 Source: patient and EMS Mode of arrival: EMS Limitations: no limitations History of Present Illness: 77-year-old female states she had a fall a week ago hit her head on her dresser she does have some bruising contusion to right forehead. She states that over the last 2 to 3 days she been having some muscle spasms she had seen her PCP has been giving her Flexeril for the spasms she states that she wants a head CT because she is concerned she may have injured her brain when she fell causing the symptoms. Denies any worsening proving factors. Associated symptoms-after fall: Reports headache(s); Denies abdominal pain, chest pain or neck pain Review of Systems Const: Denies: fever(s) or chills Eyes: Denies: blurry vision or eye discomfort ENMT: Denies: throat pain or dental pain Card: Denies: chest pain Resp: Denies: dyspnea GI: Denies: abdominal pain, nausea, vomiting or diarrhea Musc: Denies: neck pain or back pain Skin/Breast: Denies: rash Neuro: Reports: headache(s) PFSH ED PFSH: Medical History Cataract COVID-19 vaccine administered Fibromyalgia GERD (gastroesophageal reflux disease) High risk medication use History of calcium pyrophosphate deposition disease (CPPD) Hyperlipidemia Immunization counseling Inflammatory arthritis Osteoarthritis Osteoarthritis of hands, bilateral Overweight Raynauds disease Surgical History H/O: hysterectomy History of appendectomy History of back surgery History of cholecystectomy Family History Father Diabetes Embolism Mother Diabetes Stroke Sister No problems noted. Sister Cancer breast Diabetes Kidney failure Brother Cancer lung? Other Lupus Rheumatoid arthritis Denies family history of CAD (coronary artery disease) Chronic kidney disease (CKD) Lung disease Social History Smoking and tobacco status: former smoker Second hand smoke exposure: No Alcohol intake: former Substance/Drug Use: never Caregiver/support person: Yes Lives independently: Yes Physical Exam Const: COMMON NORMALS: no acute distress, patient oriented x3 and healthy appearing HENMT: COMMON NORMALS: normocephalic HEAD & SCALP: normocephalic OTHER: contusion to forehead Eye: COMMON NORMALS: Equal, round and reactive pupils present and EOMs intact bilaterally PUPIL: Yes Equal, round and reactive pupils present Neck/C-Spine: COMMON NORMALS: full ROM and supple CERVICAL SPINE: Yes cervical ROM normal, No pain with cervical ROM and No Cervical spine tenderness Chest: COMMONS NORMALS: normal inspection of the chest and normal palpation of entire chest wall Resp: COMMON NORMALS: normal respiratory effort, No retractions, No use of accessory muscles and clear to auscultation bilaterally AUSCULTATION: clear to auscultation bilaterally Cardio: COMMON NORMALS: regular rate, regular rhythm and No murmurs present (Cardio) RATE: regular rate RHYTHM: regular rhythm GI: COMMON NORMALS: Normal to inspection, nondistended, normoactive bowel sounds present, Soft to palpation, non-tender and no masses PALPATION: Yes Soft to palpation Extremity: COMMON NORMALS: normal to inspection and full ROM Neuro: COMMON NORMALS: patient oriented x3, moves all extremities and no focal motor deficits Psych: COMMON NORMALS: mental status grossly normal, Normal thought process present and cooperative THOUGHT PROCESS: Normal thought process present Skin: COMMON NORMALS: no rashes or lesions noted and no wounds GENERAL SKIN EXAM: no rashes or lesions noted Course Vital Signs: Vital signs: Vital Signs Temperature 97.8 F 01/03/23 05:05 Pulse Rate 66 01/03/23 05:05 Respiratory Rate 18 01/03/23 05:05 Blood Pressure 120/79 01/03/23 05:05 Pulse Oximetry 96 01/03/23 05:05 MDM - Fall Lab Data 01/03/23 05:22 01/03/23 05:[address] 01/03/23 05:13 IMPRESSION: No acute intracranial abnormality. Laboratory Results WBC 5.97 10^3/uL (3.29-11.43) 01/03/23 05:22 RBC 4.29 10^6/uL (3.85-5.65) 01/03/23 05:22 Hgb 13.90 g/dL (11.27-16.99) 01/03/23 05:22 Hct 42.5 % (36-47) 01/03/23 05:22 MCV 99.1 fl (85-98) H 01/03/23 05:22 MCH 32.4 pg (27-33) 01/03/23 05:22 MCHC 32.7 g/dL (30-55) 01/03/23 05:22 RDW 13.2 % (12.1-15.1) 01/03/23 05:22 Plt Count 216 10^3/cmm (157-399) 01/03/23 05:22 MPV 11.1 fL (7.4-10.4) H 01/03/23 05:22 Neut % (Auto) 76.0 % 01/03/23 05:22 Lymph % (Auto) 15.6 % 01/03/23 05:22 [place] % (Auto) 6.5 % 01/03/23 05:22 Eos % (Auto) 1.3 % 01/03/23 05:22 Baso % (Auto) 0.3 % 01/03/23 05:22 Neut # (Auto) 4.53 10^3/uL (1.8-7.7) 01/03/23 05:22 Lymph # (Auto) 0.9 10^3/uL (0.8-4.8) 01/03/23 05:22 [place] # (Auto) 0.4 10^3/uL (0.2-0.9) 01/03/23 05:22 Eos # (Auto) 0.1 10^3/uL (0.0-0.8) 01/03/23 05:22 Baso # (Auto) 0.0 10^3/uL (0.0-0.1) 01/03/23 05:22 Nucleated RBC % (auto) 0 % 01/03/23 05:22 Nucleated RBCs # 0.0 /100WBC 01/03/23 05:22 Sodium 135 mmol/L (136-145) L 01/03/23 05:22 Potassium 3.2 mmol/L (3.5-5.1) L 01/03/23 05:22 Chloride 97 mmol/L (98-107) L 01/03/23 05:22 Carbon Dioxide 29 mmol/L (22-29) 01/03/23 05:22 Anion Gap 12.2 (5-19) 01/03/23 05:22 BUN 11 mg/dL (8-23) 01/03/23 05:22 Creatinine 0.8 mg/dL (0.5-0.9) 01/03/23 05:22 GFR Calculation Not Reportable 01/03/23 05:22 Glucose 108 mg/dL (65-115) 01/03/23 05:22 Calculated Osmolality 280 mOsm/kg (285-295) L 01/03/23 05:22 Calcium 9.4 mg/dL (8.5-10.5) 01/03/23 05:22 Discharge Plan Discharge Patient Disposition: Home Clinical Impression: Closed head injury, Fall, Muscle spasm Condition: Stable Prescriptions: New tizanidine 2 mg tablet 2 mg PO Q8H PRN (Reason: muscle spasticity) Qty: 20 0RF potassium chloride 20 mEq tablet extended release 20 meq PO DAILY Qty: 20 0RF No Action Lactobacillus acidophilus [Acidophilus] Capsule 10,000 mmu cells PO DAILY Rx Instructions: administer with a meal MegaRed [place]-3 Krill Oil [id number] mg capsule 1 cap PO BID diclofenac sodium 1 % gel 4 g topical QID Qty: 100 2RF Rx Instructions: apply to single knee, ankle, foot; for foot includes sole/toes/top of foot Ozempic 0.25 mg or 0.5 mg(2 mg/1.5 mL) pen injector 0.5 mg SUBCUT .once weekly Qty: 4 3RF cyclobenzaprine 5 mg tablet 5 mg PO TID PRN (Reason: muscle spasm) Qty: 90 0RF ondansetron 4 mg tablet,disintegrating 4 mg PO Q8H Qty: 20 0RF Rx Instructions: Dissolve one tablet under tongue every 8 hours as needed bupivacaine (PF) 0.25 % (2.5 mg/mL) solution 1 ml Infiltration ONCE Qty: 1 0RF pregabalin [Lyrica] 100 mg capsule 100 mg PO TID 30 Days Qty: 90 2RF atorvastatin 40 mg tablet 40 mg PO DAILY 90 Days Qty: 90 1RF celecoxib [Celebrex] 50 mg capsule 50 mg PO BID 90 Days Qty: 180 1RF Hold Instructions: black stool Rx Instructions: WITH FOOD famotidine 20 mg tablet 20 mg PO BID 90 Days Qty: 180 3RF hydrochlorothiazide 25 mg tablet 25 mg PO DAILY 90 Days Qty: 90 1RF furosemide 20 mg tablet 20 mg PO DAILY PRN (Reason: edema) 90 Days Qty: 90 1RF metoprolol succinate [Toprol XL] 25 mg tablet extended release 24 hr 25 mg PO DAILY 90 Days Qty: 90 1RF donepezil 10 mg tablet 10 mg PO DAILY 90 Days Qty: 90 1RF dexlansoprazole [Dexilant] 30 mg capsule,biphase delayed releas 30 mg PO BID 90 Days Qty: 180 1RF Rx Instructions: failed other PPIs Vitamin A and D Diaper Rash Ointment See Rx Instructions topical .COMPLEX Qty: 113 1RF Rx Instructions: 1 application daily topical ; cholestyramine (with sugar) 4 gram powder in packet 4 g PO TID Qty: 60 1RF Rx Instructions: administer w/meal; avoid other meds within 1hr before or 4-6hr after dose ketoconazole 2 % shampoo 1 applic topical DAILY Qty: 120 0RF Rx Instructions: wash face levothyroxine 112 mcg tablet 112 mcg PO DAILY 90 Days Qty: 90 0RF Discharge Orders: Discharge ED (Routine); Ordered 01/03/23 Ordered By: Louis Adams Referrals: Jackie Ferrell MD [Primary Care Provider] - Discharge Diet: Usual diet Discharge Activity: Increase activity as tolerated Patient Instructions: Opioid Safety, Pain Management Activity Restrictions/Additional Instructions: Head CT was negative. guest services manager will make arrangements for follow-up with neurology. Recommend he stop Flexeril trial of the tizanidine 2 mg every 8 thad rs as needed. Your potassium was slightly low but would not be low enough to cause significan muscle spasms or fasciculations. Reviewing your old records it is at the same range it has been when it has been checked recently. You are also given a prescription for potassium supplement this can be reevaluated by your primary care doctor.t Sign Out Sign Out Data: Patient Sign Out occurred on 01/03/23 at 06:00. Patient's care was discussed, and care was transferred from to Louis Adams DO. Coding Level of Care Code ED Bailing Machine Operator for Chg Fwd Documented by User: Louis Adams DO 01/03/23 07:26 HPI - Fall General: Chief Complaint: Fall Stated Complaint: Fall x 1 week Time Seen by Provider: 01/03/23 05:06 PFSH ED PFSH: Medical History Cataract COVID-19 vaccine administered Fibromyalgia GERD (gastroesophageal reflux disease) High risk medication use History of calcium pyrophosphate deposition disease (CPPD) Hyperlipidemia Immunization counseling Inflammatory arthritis Osteoarthritis Osteoarthritis of hands, bilateral Overweight Raynauds disease Surgical History H/O: hysterectomy History of appendectomy History of back surgery History of cholecystectomy Family History Father Diabetes Embolism Mother Diabetes Stroke Sister No problems noted. Sister Cancer breast Diabetes Kidney failure Brother Cancer lung? Other Lupus Rheumatoid arthritis Denies family history of CAD (coronary artery disease) Chronic kidney disease (CKD) Lung disease Social History Smoking and tobacco status: former smoker Second hand smoke exposure: No Alcohol intake: former Substance/Drug Use: never Caregiver/support person: Yes Lives independently: Yes Course Vital Signs: Vital signs: Vital Signs Temperature 97.8 F 01/03/23 05:05 Pulse Rate 66 01/03/23 05:05 Respiratory Rate 18 01/03/23 05:05 Blood Pressure 120/79 01/03/23 05:05 Pulse Oximetry 96 01/03/23 05:05 MDM - Fall Medical Decision Making Care assumed at change of shift from Dr. Aguero. CT head is negative. Potassium is slightly low but I do not believe is low enough to cause the type of symptoms she is describing. Reviewing her previous potassiums its been at that same range frequently. We did give her some oral potassium supplement here and a prescription for 20 mill equivalents daily. We will have her change from Flexeril to tizanidine. Nurse ambulated the patient in the [place] and she was able to ambulate without difficulty she states she felt at her baseline. We will discharge the patient home and refer her to neurology she is reporting continued spasm like trouble. The nurses note it said she had fallen a week and a half ago she told me and Dr. Aguero that she had fallen 2 to 3 days ago. There is a note from her primary care provider on December 24 reporting falling out of bed and hitting her head on the dresser. She stated she got her foot caught in the sheet as she was getting out sounds like it was a mechanical fall. We will refer the patient To neurology. Medical Records I reviewed the patient's medical records. Lab Data I reviewed the patient's lab results. 01/03/23 05:22 01/03/23 05:[address] 01/03/23 05:13 IMPRESSION: No acute intracranial abnormality. Laboratory Results WBC 5.97 10^3/uL (3.29-11.43) 01/03/23 05:22 RBC 4.29 10^6/uL (3.85-5.65) 01/03/23 05:22 Hgb 13.90 g/dL (11.27-16.99) 01/03/23 05:22 Hct 42.5 % (36-47) 01/03/23 05:22 MCV 99.1 fl (85-98) H 01/03/23 05:22 MCH 32.4 pg (27-33) 01/03/23 05:22 MCHC 32.7 g/dL (30-55) 01/03/23 05:22 RDW 13.2 % (12.1-15.1) 01/03/23 05:22 Plt Count 216 10^3/cmm (157-399) 01/03/23 05:22 MPV 11.1 fL (7.4-10.4) H 01/03/23 05:22 Neut % (Auto) 76.0 % 01/03/23 05:22 Lymph % (Auto) 15.6 % 01/03/23 05:22 [place] % (Auto) 6.5 % 01/03/23 05:22 Eos % (Auto) 1.3 % 01/03/23 05:22 Baso % (Auto) 0.3 % 01/03/23 05:22 Neut # (Auto) 4.53 10^3/uL (1.8-7.7) 01/03/23 05:22 Lymph # (Auto) 0.9 10^3/uL (0.8-4.8) 01/03/23 05:22 [place] # (Auto) 0.4 10^3/uL (0.2-0.9) 01/03/23 05:22 Eos # (Auto) 0.1 10^3/uL (0.0-0.8) 01/03/23 05:22 Baso # (Auto) 0.0 10^3/uL (0.0-0.1) 01/03/23 05:22 Nucleated RBC % (auto) 0 % 01/03/23 05:22 Nucleated RBCs # 0.0 /100WBC 01/03/23 05:22 Sodium 135 mmol/L (136-145) L 01/03/23 05:22 Potassium 3.2 mmol/L (3.5-5.1) L 01/03/23 05:22 Chloride 97 mmol/L (98-107) L 01/03/23 05:22 Carbon Dioxide 29 mmol/L (22-29) 01/03/23 05:22 Anion Gap 12.2 (5-19) 01/03/23 05:22 BUN 11 mg/dL (8-23) 01/03/23 05:22 Creatinine 0.8 mg/dL (0.5-0.9) 01/03/23 05:22 GFR Calculation Not Reportable 01/03/23 05:22 Glucose 108 mg/dL (65-115) 01/03/23 05:22 Calculated Osmolality 280 mOsm/kg (285-295) L 01/03/23 05:22 Calcium 9.4 mg/dL (8.5-10.5) 01/03/23 05:22 All radiology interpretation(s) finalized by discharge Discharge Plan Discharge Patient Disposition: Home Clinical Impression: Closed head injury, Fall, Muscle spasm Condition: Stable Prescriptions: New tizanidine 2 mg tablet 2 mg PO Q8H PRN (Reason: muscle spasticity) Qty: 20 0RF potassium chloride 20 mEq tablet extended release 20 meq PO DAILY Qty: 20 0RF No Action Lactobacillus acidophilus [Acidophilus] Capsule 10,000 mmu cells PO DAILY Rx Instructions: administer with a meal MegaRed [place]-3 Krill Oil [id number] mg capsule 1 cap PO BID diclofenac sodium 1 % gel 4 g topical QID Qty: 100 2RF Rx Instructions: apply to single knee, ankle, foot; for foot includes sole/toes/top of foot Ozempic 0.25 mg or 0.5 mg(2 mg/1.5 mL) pen injector 0.5 mg SUBCUT .once weekly Qty: 4 3RF cyclobenzaprine 5 mg tablet 5 mg PO TID PRN (Reason: muscle spasm) Qty: 90 0RF ondansetron 4 mg tablet,disintegrating 4 mg PO Q8H Qty: 20 0RF Rx Instructions: Dissolve one tablet under tongue every 8 hours as needed bupivacaine (PF) 0.25 % (2.5 mg/mL) solution 1 ml Infiltration ONCE Qty: 1 0RF pregabalin [Lyrica] 100 mg capsule 100 mg PO TID 30 Days Qty: 90 2RF atorvastatin 40 mg tablet 40 mg PO DAILY 90 Days Qty: 90 1RF celecoxib [Celebrex] 50 mg capsule 50 mg PO BID 90 Days Qty: 180 1RF Hold Instructions: black stool Rx Instructions: WITH FOOD famotidine 20 mg tablet 20 mg PO BID 90 Days Qty: 180 3RF hydrochlorothiazide 25 mg tablet 25 mg PO DAILY 90 Days Qty: 90 1RF furosemide 20 mg tablet 20 mg PO DAILY PRN (Reason: edema) 90 Days Qty: 90 1RF metoprolol succinate [Toprol XL] 25 mg tablet extended release 24 hr 25 mg PO DAILY 90 Days Qty: 90 1RF donepezil 10 mg tablet 10 mg PO DAILY 90 Days Qty: 90 1RF dexlansoprazole [Dexilant] 30 mg capsule,biphase delayed releas 30 mg PO BID 90 Days Qty: 180 1RF Rx Instructions: failed other PPIs Vitamin A and D Diaper Rash Ointment See Rx Instructions topical .COMPLEX Qty: 113 1RF Rx Instructions: 1 application daily topical ; cholestyramine (with sugar) 4 gram powder in packet 4 g PO TID Qty: 60 1RF Rx Instructions: administer w/meal; avoid other meds within 1hr before or 4-6hr after dose ketoconazole 2 % shampoo 1 applic topical DAILY Qty: 120 0RF Rx Instructions: wash face levothyroxine 112 mcg tablet 112 mcg PO DAILY 90 Days Qty: 90 0RF Discharge Orders: Discharge ED (Routine); Ordered 01/03/23 Ordered By: Louis Adams Referrals: Jackie Ferrell MD [Primary Care Provider] - Discharge Diet: Usual diet Discharge Activity: Increase activity as tolerated Patient Instructions: Opioid Safety, Pain Management Activity Restrictions/Additional Instructions: Head CT was negative. guest services manager will make arrangements for follow-up with neurology. Recommend he stop Flexeril trial of the tizanidine 2 mg every 8 hours as needed. Your potassium was slightly low but would not be low enough to cause significan muscle spasms or fasciculations. Reviewing your old records it is at the same range it has been when it has been checked recently. You are also given a prescription for potassium supplement this can be reevaluated by your primary care doctor.t Sign Out Sign Out Data: Patient Sign Out occurred on 01/03/23 at 06:00. Patient's care was discussed, and care was transferred from to Louis Adams DO. Coding Level of Care Code ED Bailing Machine Operator for Lolly Terrell
[2023-01-03 05:28] LABS: Basophils % 0.3 %; Eosinophils # 0.1 10^3/uL (0.0-0.8); Eosinophils % 1.3 %; Hematocrit 42.5 % (36-47); Lymphocytes # 0.9 10^3/uL (0.8-4.8); Lymphocytes % 15.6 %; Mean Corpuscular HGB Conc 32.7 g/dL (30-55); Mean Corpuscular Hemoglobin 32.4 pg (27-33); Mean Corpuscular Volume 99.1 fl (85-98); Mean Platelet Volume 11.1 fL (7.4-10.4); Monocytes # 0.4 10^3/uL (0.2-0.9); Monocytes % 6.5 %; Neutrophils # 4.53 10^3/uL (1.8-7.7); Nucleated Red Blood Cells % 0 %; Platelet Count 216 10^3/cmm (157-399); Red Blood Count 4.29 10^6/uL (3.85-5.65); Red Cell Distribution Width 13.2 % (12.1-15.1); White Blood Count 5.97 10^3/uL (3.29-11.43)
[2023-01-03 05:50] LABS: Anion Gap 12.2 (5-19); Blood Urea Nitrogen 11 mg/dL (8-23); Calcium 9.4 mg/dL (8.5-10.5); Carbon Dioxide 29 mmol/L (22-29); Chloride 97 mmol/L (98-107); Glucose 108 mg/dL (65-115); Osmolality Calculated 280 mOsm/kg (285-295); Potassium 3.2 mmol/L (3.5-5.1); Sodium 135 mmol/L (136-145)
[2023-01-03] MEDS: potassium chloride oral liq 20 mEq/15 mL UDC PO (07:06)
--- NOTE | 2023-01-03 08:23 | PC.SOCIAL ---
Neurology Referral Referral to clinic at this time. Clinic to contact patient with appt date/time.
== END 2023-01-03 07:28 | disposition home or self-care (01) ==
PROVIDERS: Emergency Medicine; Emergency Provider Family Medicine; PCP Family Medicine
DX: S09.8XXA Other specified injuries of head, initial encounter (principal); M62.838 Other muscle spasm; Z87.891 Personal history of nicotine dependence; E78.5 Hyperlipidemia, unspecified; S00.83XA Contusion of other part of head, initial encounter; W18.39XA Other fall on same level, initial encounter
CPT/HCPCS: 36415; 70450; 80048; 85025; 99284

== ENCOUNTER → 2023-01-13 10:38 | Outpatient (BNVA) | payer MEDICARE, OTHER, MEDICAID, SELFPAY | PROVIDERS: PCP Family Medicine; Visit Provider Nurse Practitioner Family | DX: R07.81 Pleurodynia (principal); W19.XXXA Unspecified fall, initial encounter; S22.32XA Fracture of one rib, left side, initial encounter for closed fracture | CPT/HCPCS: 71101 ==

== ENCOUNTER → 2023-02-05 13:33 | Outpatient (BNVA) | payer MEDICARE, OTHER, MEDICAID, SELFPAY | PROVIDERS: PCP Family Medicine; Referring Provider Family Medicine; Visit Provider Internal Medicine | DX: R07.9 Chest pain, unspecified (principal); I10 Essential (primary) hypertension; E78.2 Mixed hyperlipidemia; Z87.891 Personal history of nicotine dependence; R94.31 Abnormal electrocardiogram [ECG] [EKG] | CPT/HCPCS: 93005; 99204 ==

== ENCOUNTER 2023-02-10 13:17 | Outpatient (CLI) | payer MEDICARE, OTHER, MEDICAID, SELFPAY ==
--- NOTE | 2023-02-10 14:00 | USCV_ITS ---
Joana Maloney Age: 77 Gender: F : 1945 Exam Date: 02/10/2023 14:18 Ordering Phys: Jackie Ferrell MD Technologist: CT Exam Location: [facility] [place] Indication: Stenosis Risk Factors: Previous Vascular Surgery: Right Brachial BP: / Left Brachial BP: / Right Left Velocity (cm/s) Spectral Plaque Velocity (cm/s) Spectral Plaque Syst/Diast Broadening Syst/Diast Broadening 78.60/ 17.10 Prox CCA 73.80 / 15.50 52.10/ 17.90 Mid CCA 68.70 / 21.10 64.50/ 17.90 Distal CCA 59.80 / 19.40 46.40/ 16.70 Prox ICA 33.40 / 10.40 52.10/ 18.10 Mid ICA 48.40 / 15.40 47.00/ 16.30 Distal ICA 70.70 / 26.00 54.60 ECA 52.80 0.66 ICA/CCA 0.96 Antegrade Vertebral Antegrade 56.70/ 18.60 cm/s 56.80/ 15.70 cm/s Tri Subclavian Tri 83.10 64.70 CONCLUSIONS Right ICA stenosis <50%. Mild atheromatous plaque right carotid bulb/ICA. Left ICA stenosis <50%. Mild atheromatous plaque left carotid bulb/ICA. Normal antegrade Doppler flow noted in the right vertebral artery. Normal antegrade Doppler flow noted in the right vertebral artery. Isidro Romero MD (Electronically Signed) Final Date: 11 February 2023 09:13 S
--- NOTE | 2023-02-10 14:45 | USCV_ITS ---
Joana Maloney Age: 77 Gender: F : 1945 Exam Date: 02/10/2023 13:41 Ordering Phys: Jackie Ferrell MD Technologist: CT Exam Location: [facility] [place] Indication: Primary HTN BP: 120 / 80 HR: 76 Rhythm: Sinus Technical Quality: Adequate MEASUREMENTS (Male / Female) Normal Values 2D ECHO LV Chamber Size 3.8 cm RV Chamber Size 3.2 cm LVOT Diameter 2.0 cm LV Ejection Fraction MOD 2C 52.0 % LV Ejection Fraction 2C AL 52.4 % LA Diameter 3.6 cm LA Width 2.9 cm LA Height 4.9 cm RA Width 3.0 cm RA Height 4.2 cm Aorta at Sinotubular Diameter 2.4 cm IVC Diameter 1.5 cm M-MODE Aortic Annulus Diameter 3.1 cm LA Ao Ratio MM 1.1 MV E Point Septal Separation 1.0 cm DOPPLER AV Peak Velocity 99.0 cm/s LVOT Peak Velocity 78.0 cm/s AV Area Cont Eq vti 3.3 cm squared AV Area Cont Eq pk 2.6 cm squared MV E' Velocity 6.0 cm/s TR Peak Velocity 105.0 cm/s TR Peak Gradient 4.4 mmHg TV Peak E Velocity 71.0 cm/s Right Atrial Pressure 3.0 mmHg Pulmonary Artery Systolic Pressu 7.4 mmHg PV Peak Velocity 85.0 cm/s FINDINGS Left Ventricle Normal left ventricular size, systolic function and wall thickness, with no regional wall motion abnormalities. Left ventricular ejection fraction is estimated at 60 %. Grade I/IV diastolic dysfunction (abnormal relaxation filling pattern), normal to mildly elevated filling pressures. Right Ventricle The right ventricle is normal in size and function. Right Atrium The right atrium is normal in size. Left Atrium The left atrium is normal in size. Mitral Valve Structurally normal mitral valve. Mild mitral valve regurgitation. Aortic Valve Structurally normal aortic valve without significant sclerosis or stenosis. There is no aortic regurgitation. Tricuspid Valve Structurally normal tricuspid valve without significant stenosis or regurgitation. Pulmonary artery systolic pressure is normal. Pulmonic Valve Pulmonic valve not well visualized. Trace pulmonary valve regurgitation. Pericardium Normal pericardium without effusion. Aorta Normal ascending aorta dimension. IVC The inferior vena cava appears normal. CONCLUSIONS Normal left ventricular size, systolic function and wall thickness, with no regional wall motion abnormalities. Left ventricular ejection fraction is estimated at 60 %. Grade I/IV diastolic dysfunction (abnormal relaxation filling pattern), normal to mildly elevated filling pressures. Structurally normal mitral valve. Mild mitral valve regurgitation. There are no prior echocardiogram studies to compare. Dr. Chance Beckett MD (Electronically Signed) Final Date: 11 February 2023 08:27 S
== END 2023-02-10 13:18 | disposition home or self-care (01) ==
LOC: RAD 13:18
PROVIDERS: PCP Family Medicine; Visit Provider Family Medicine
DX: Z86.73 Personal history of transient ischemic attack (TIA), and cerebral infarction without residual deficits (principal); I10 Essential (primary) hypertension; R60.0 Localized edema; I51.89 Other ill-defined heart diseases; I34.0 Nonrheumatic mitral (valve) insufficiency; I65.23 Occlusion and stenosis of bilateral carotid arteries
CPT/HCPCS: 93306; 93880

== ENCOUNTER → 2023-03-03 14:51 | Outpatient (BNVA) | payer MEDICARE, OTHER, MEDICAID, SELFPAY | PROVIDERS: PCP Family Medicine; Visit Provider Family Medicine | DX: E03.9 Hypothyroidism, unspecified (principal); I10 Essential (primary) hypertension; E03.8 Other specified hypothyroidism; E06.3 Autoimmune thyroiditis; M48.062 Spinal stenosis, lumbar region with neurogenic claudication; M19.90 Unspecified osteoarthritis, unspecified site; M62.830 Muscle spasm of back; R60.0 Localized edema; M51.36 Other intervertebral disc degeneration, lumbar region; R07.81 Pleurodynia; Z86.73 Personal history of transient ischemic attack (TIA), and cerebral infarction without residual deficits; I50.32 Chronic diastolic (congestive) heart failure; E87.6 Hypokalemia; G89.4 Chronic pain syndrome | CPT/HCPCS: 71110; 80048; 84439; 84443; 84481 ==

== ENCOUNTER → 2023-03-19 09:21 | Outpatient (BNVA) | payer MEDICARE, OTHER, MEDICAID, SELFPAY | PROVIDERS: PCP Family Medicine; Visit Provider Anesthesiology Pain Medicine | DX: M48.062 Spinal stenosis, lumbar region with neurogenic claudication (principal); M19.041 Primary osteoarthritis, right hand; M19.042 Primary osteoarthritis, left hand; M47.816 Spondylosis without myelopathy or radiculopathy, lumbar region; M47.814 Spondylosis without myelopathy or radiculopathy, thoracic region; M51.36 Other intervertebral disc degeneration, lumbar region; M41.9 Scoliosis, unspecified | CPT/HCPCS: 99214 ==

== ENCOUNTER → 2023-05-19 10:55 | Outpatient (BNVA) | payer MEDICARE, OTHER, MEDICAID, SELFPAY | PROVIDERS: PCP Family Medicine; Visit Provider Specialist | DX: M21.061 Valgus deformity, not elsewhere classified, right knee (principal); M17.0 Bilateral primary osteoarthritis of knee | CPT/HCPCS: 36415; 73560; 73565; 80053; 81001; 85025; 99214 ==

== ENCOUNTER → 2023-05-20 14:15 | Outpatient (BNVA) | payer MEDICARE, OTHER, MEDICAID, SELFPAY | PROVIDERS: PCP Family Medicine; Visit Provider Family Medicine | DX: I10 Essential (primary) hypertension (principal) | CPT/HCPCS: 83735 ==

== ENCOUNTER 2023-05-29 10:15 | Outpatient (CLI) | payer MEDICARE, OTHER, MEDICAID, SELFPAY ==
--- NOTE | 2023-05-29 10:30 | CT_ITS ---
WS: [id number] CT RIGHT KNEE, NONCONTRAST CHINO TECHNIQUE: Noncontrast CT of the RIGHT knee to include the RIGHT hip and ankle. CLINICAL INFORMATION: surgery planning COMPARISON: None. DLP: [id number] scans at [facility] use at least one of these dose optimization techniques: automated e xposure control; mA and/or kV adjustment per patient size (includes targeted exams where dose is matc hed to clinical indication); or iterative reconstruction. FINDINGS: Small suprapatellar effusion. Moderate to advanced degenerative arthritis RIGHT knee with hypertrophic changes along the joint line . Chondrocalcinosis. Hypertrophic patella. Soft tissue edema about the RIGHT knee. Lobulated poplitea l cyst measuring 3.7 x 1.9 cm. Vascular calcification. IMPRESSION: Images obtained for preoperative purposes.
== END 2023-05-29 10:16 | disposition home or self-care (01) ==
LOC: RAD 10:16
PROVIDERS: PCP Family Medicine; Visit Provider Specialist
DX: Z01.818 Encounter for other preprocedural examination (principal); M17.11 Unilateral primary osteoarthritis, right knee; M25.461 Effusion, right knee
CPT/HCPCS: 73700; 83735

== ENCOUNTER → 2023-06-02 12:36 | Outpatient (BNVA) | payer MEDICARE, OTHER, MEDICAID, SELFPAY | PROVIDERS: PCP Family Medicine; Visit Provider Family Medicine | DX: Z01.818 Encounter for other preprocedural examination (principal) | CPT/HCPCS: 81003; 87086; 93005 ==

== ENCOUNTER 2023-06-09 13:56 | Observation (INO) | payer MEDICARE, OTHER, MEDICAID, SELFPAY ==
[2023-06-09] VITALS (21 sets, daily range): BP systolic 86–146; BP diastolic 46–90; PULSE 47–79; RESP 15–22; TEMP 36.1–36.6; O2SAT 92–100; BMI 31.5
--- NOTE | 2023-06-09 07:38 | ECG_ITS ---
[facility] Test Date: 2023-06-09 Pat Name: Joana Maloney Department: Room: Gender: Female [employer]: : 1945 Requested By: Briana Morales Order Number: [id number] Praveen MD: Chance Beckett M.D. Measurements Intervals [place] Rate: 54 P: 8 MT: 175 QRS: -34 QRSD: 91 T: -15 QT: 469 QTc: 448 Interpretive Statements SINUS BRADYCARDIA LEFT AXIS DEVIATION [QRS AXIS < -30] POSSIBLE ANTERIOR MYOCARDIAL INFARCTION , OF INDETERMINATE AGE [30 ms Q WAVE IN V3/V4, OR R < 0.2 mV IN V4] Compared to ECG 02/05/2023 13:40:27 Sinus rhythm no longer present Myocardial infarct finding still present Electronically Signed On 06-09-2023 14:23:52 CDT by Chance Beckett M.D. [id number]
[2023-06-09] MEDS: CELEcoxib 200 mg Capsule 400 MG PO (08:04)
[2023-06-09] MEDS: gabapentin 300 mg Capsule PO (08:04)
[2023-06-09] MEDS: sodium chloride 0.9% 1,000 ML 30 ML IV (08:17)
[2023-06-09] MEDS: acetaminophen 1,000 MG/100 ML PIGGYBACK 400 MG IV ×2 (08:17→18:18)
--- NOTE | 2023-06-09 09:16 | P.HPUD_ITS ---
Surgery/Procedure H&P Update DATE OF PROCEDURE: June 09, 2023 DATE H&P PERFORMED: 05/19/23 H&P UPDATE INFORMATION: I have reviewed H&P completed within last 30 days, I have examined patient prior to procedure, No changes to prior documentation and H&P is in [facility] EMR on date indicated PREOP DIAGNOSIS: Primary osteoarthritis right knee with valgus deformity PLANNED PROCEDURE: Operation Date: 06/09/23 09:20 Proposed Procedures p Carlos Robot Total Knee Arthroplasty(Right) - Digna Rainey MD Related Problem List Diagnoses (1) Primary osteoarthritis of right knee: (2) Valgus deformity, not elsewhere classified, right knee:
--- NOTE | 2023-06-09 09:16 | ANES.PREANE2 ---
Pre-Anesthetic Assessment Height/Weight: Height 1.55 m Weight 75.75 kg Temp Pulse Resp BP Pulse Ox O2 Del Method 97 F L 61 18 124/90 95 Room Air 06/09/23 07:53 06/09/23 07:53 06/09/23 07:53 06/09/23 07:53 06/09/23 07:53 06/09/23 07:53 Operation Date: 06/09/23 09:20 Proposed Procedures p Carlos Robot Total Knee Arthroplasty(Right) - Digna Rainey MD Familial anesthetic complications: None Was Beta Adrianna taken within 24 hours: Yes Was Clonidine taken within 24 hours: N/A Last intake: Intake Last Liquid Date 06/08/23 Last Liquid Time 18:00 Last Solid Date 06/08/23 Last Solid Time 14:00 Social No alcohol and No tobacco Exam alert, oriented x 3, clear to auscultation bilaterally and regular rate & rhythm Airway Dentition: false CV/HEM Congestive Heart Failure GI Gastroesophageal Reflux Disease Metabolic Hyperlipidemia Anesthetic Plan ASA status: 3 Anesthesia: Regional (specify below) Other: spinal + adductor Risk of > 500 ml blood loss (7ml/kg in children): No Medications/Allergies Home Medications Medication Instructions Recorded Confirmed Last Taken Type Lactobacillus acidophilus 10,000 mmu cells PO DAILY 08/01/20 06/09/23 06/09/23 History (Acidophilus capsule) celecoxib 50 mg capsule (Celebrex) 50 mg PO BID 90 days #180 caps 09/04/22 06/09/23 06/09/23 Rx famotidine 20 mg tablet 20 mg PO BID 90 days #180 tabs 09/04/22 06/09/23 06/09/23 Rx petrolatum, white-lanolin topical See Rx Instructions topical 11/26/22 06/06/23 Unknown Rx ointment (Vitamin A and D Diaper .COMPLEX #113 grams Rash topical ointment) cyclobenzaprine 5 mg tablet 5 mg PO TID PRN muscle spasm #90 03/03/23 06/06/23 Unknown Rx tabs furosemide 20 mg tablet 20 mg PO DAILY PRN edema 90 days 03/03/23 06/06/23 1 Week Ago Rx #90 tabs ~05/30/23 hydrochlorothiazide 25 mg tablet 25 mg PO DAILY 90 days #90 tabs 03/03/23 06/09/23 06/09/23 Rx levothyroxine 112 mcg tablet 112 mcg PO DAILY 90 days #90 tabs 03/03/23 06/09/23 06/09/23 Rx metoprolol succinate 25 mg 25 mg PO DAILY 90 days #90 tabs 03/03/23 06/09/23 06/09/23 Rx tablet,extended release 24 hr (Toprol XL) pregabalin 100 mg capsule (Lyrica) 100 mg PO TID 30 days #90 caps 03/03/23 06/09/23 06/09/23 Rx ROLLATOR WALKER #1 ea 03/19/23 05/20/23 Unknown Rx dexlansoprazole 30 mg 30 mg PO BID 90 days #180 caps 05/29/23 06/09/23 06/09/23 Rx capsule,biphase delayed release (Dexilant) mirtazapine 7.5 mg tablet 7.5 mg PO .at bedtime 30 days #30 06/02/23 06/06/23 06/08/23 Rx tabs duloxetine 20 mg capsule,delayed 20 mg PO BID 90 days #180 caps 06/03/23 06/09/23 06/09/23 Rx release (Cymbalta) atorvastatin 40 mg tablet 40 mg PO BEDTIME 06/09/23 06/09/23 06/08/23 History donepezil 10 mg tablet 10 mg PO BEDTIME 06/09/23 06/09/23 06/08/23 History Allergies Allergy/AdvReac Type Severity Reaction Status Date / Time No Known Allergies Allergy Verified 06/02/23 12:00 Current Medications Generic Name Dose Route Start Last Admin Trade Name Freq PRN Reason Stop Dose Admin Sodium Chloride 1,000 mls @ 30 mls/hr 06/09/23 07:45 06/09/23 08:17 Sodium Chloride 0.9% IV 06/10/23 07:44 30 mls/hr .Q24H RIOS Administration PFSH Anesthesia Medical History (Updated 06/09/23 @ 09:17 by Digna Rainey MD) Willing to be an organ donor Overweight COVID-19 vaccine administered History of calcium pyrophosphate deposition disease (CPPD) Immunization counseling High risk medication use Osteoarthritis of hands, bilateral Inflammatory arthritis Raynauds disease Fibromyalgia GERD (gastroesophageal reflux disease) Osteoarthritis Hyperlipidemia Cataract Surgical History History of appendectomy H/O: hysterectomy History of cholecystectomy History of back surgery Family History Father Diabetes Embolism Mother Diabetes Stroke Sister No problems noted. Sister Cancer breast Diabetes Kidney failure Brother Cancer lung? Other Lupus Rheumatoid arthritis Denies family history of CAD (coronary artery disease) Chronic kidney disease (CKD) Lung disease Social History Smoking and tobacco/nicotine status: former use of tobacco/nicotine Second hand smoke exposure: No Alcohol intake: former Substance/Drug Use: never Caregiver/support person: Yes Lives independently: Yes Data Anesthesia Cardiac Studies: Echocardiogram 02/10/23
--- NOTE | 2023-06-09 09:18 | ANES.PROC ---
Anesthesia Procedures Procedure/Date: 06/09/23 Nerve Block ^: Nerve Block 1: Main Anesthesia: spinal anesthesia block Time Out Performed: Yes Consent: requested by attending/covering physician, from patient, from other, risks and benefits reviewed and patient agrees to proceed Nerve block location: adductor canal (R) Anesthesia monitors applied: pulse oximetry, EKG, BP cuff and oxygen Nerve block position: supine Anesthetic Used: ropivicaine 0.5% (30 ml) and with decadron (4 mg) Ultrasound used to: recognize landmarks and visualize and ID femerol nerve Nerve Stimulator Used?: No Interscalene/Femoral BLK: 4 stimuplex 21 g needle used for position and inplane approach, visualize local anesthetic spread and no vascular puncture identified Injection: neg aspiration of heme Patient Tolerated Procedure: well Complications: none
[2023-06-09] MEDS: ceFAZolin 2,000 MG in sodium chloride 0.9% (plus) 50 ML 100 MG IV ×2 (09:57→18:15)
[2023-06-09] MEDS: tranexamic acid 1,000 mg/10mL SDV 1000 MG IV (10:23)
[2023-06-09] MEDS: vancomycin 1,000 MG SDV 1000 MG XX (10:51)
[2023-06-09] MEDS: BUPivacaine liposome 13.3 mg/mL SDV 10 mL 266 MG INFILTRATI (10:52)
[2023-06-09] MEDS: BUPivacaine 0.5% INJ 30 mL 20 ML INJECTION (10:52)
[2023-06-09] MEDS: ceFAZolin 1,000 mg SDV 2000 MG IRRIGATION (10:53)
--- NOTE | 2023-06-09 12:40 | P.OP_ITS ---
Operative Report Date of procedure: June 09, 2023 Pre-op diagnosis: Degenerative osteoarthritis with valgus deformity right knee Post-op diagnosis: Degenerative osteoarthritis with valgus deformity right knee Post-op findings: Significant valgus deformity with large osteophytes and loss of cartilage. Procedure done: Right total knee arthroplasty with Carlos guidance Implants: The [place] total knee system with a size 3 triathlon beaded cruciate retaining femur right, a triathlon titanium tibial component size 2 beaded, a triathlon X3 tibial bearing CS insert size 2 X 9 mm and a beaded triathlon titanium asymmetric patella size 29 x 9 mm Specimens removed/disposition: Bone, disposed of Surgeon: Digna Rainey MD President And Chief Executive Officer: Leta Salgado, nurse practitioner, who services were essential for positioning, retraction, closure, and completion of the surgical procedure Anesthesia: Spinal (With MAC, ASA 3 and with supplemental adductor block) Estimated blood loss (mL): 310 Tourniquet time (min): 0 (Not utilized) IV fluids (mL): 1,200 Urine output (mL): 100 Complications: None Findings: Severe valgus deformity with large osteophytes and denudement of bone Condition: stable Disposition: PACU (Then admit to floor under observation status after recovery) Brief History: This is an established 77-year-old woman who is here today for Carlos assisted right total knee arthroplasty. Preoperatively, she complains of pain at at least a 5 of 10. She had gel 1 and cortisone injections which were no longer providing relief. The patient has significant valgus deformity to this knee and varus deformity to the left knee with significant narrowing of the compartments appropriate to those deformities. Upon review of imaging, there was significant progression from November 13, 2022. Plans were made for right total knee arthroplasty. Risks and complications were discussed with the patient, and consents were signed. Questions were answered at that time. Procedure: The patient was brought to the operating theater, and after undergoing spinal anesthetic, with supplemental adductor canal block, ASA 3, the right lower extremity was prepped with Dura-Prep and draped in usual fashion following placement of a tourniquet high on the leg. The leg was then draped free.? Tourniquet was not elevated during the case.? A surgical pause was performed, and at the time of the surgical pause, we confirmed the site and side of surgery. Additionally, we confirmed the appropriate and timely administration of preoperative antibiotics, Ancef 2 g and Transexemic acid 1 g.? The availability of equipment was confirmed, and the patient's identity was verbalized as well. Following the surgical pause, an incision was made centering over the patella continuing proximally and distally as necessary to allow access to the knee joint. Dissection continued through skin and soft tissues using a scalpel. Hemostasis was obtained using electrocautery. The skin incision was followed by a median parapatellar arthrotomy. The leg was extended and the patella was able to be displaced laterally.? Appropriate arrays and markers were placed in appropriate position for use of the Carlos.? Preoperative planning had been accomplished and was discussed in detail with the [facility] labor service representative.? Intraoperative mapping of the femur and tibia was accomplished after the arrays were placed.? Internal markers were also placed.? Once we had accomplished the Carlos mapping, we began the appropriate resections for placement of the prosthesis.? The plan was for a posterior cruciate retaining right total knee arthroplasty. Once appropriate mapping had been accomplished retraction was established using manual retraction by surgical technicians and also the Carlos leg positioner and retractors.? The knee was evaluated.? There was significant osteoarthritic change as well as valgus deformity.? Appropriate bone resection was accomplished using the Carlos.? The femur was sized to a size 3.? Following femoral cuts, attention was directed to the tibia.? Osteophytes were removed prior to this portion of the procedure.? We had performed a minimal medial release at the beginning of the procedure to allow for placement of the array.? Proximal tibia was evaluated, and it was felt that appropriate size for the tibia was a size 2.? Tray was noted to fit nicely with good coverage.? Rim fit was accomplished with the size 2. A trial reduction was accomplished after osteophytes have been removed as well as the medial and lateral menisci.? We had removed the anterior cruciate ligament remnants at the beginning of the case and preserved the posterior cruciate ligament.? Trial reduction was accomplished with a size 3 femoral cruciate retaining component and a size 2 TriTanium tibial tray.? Trial was accomplished with a 9 mm insert, with the [address], alignment was felt to be appropriate as well.? Trial components were removed after the femur had been drilled.? Prior to removal of the tibial tray which had been pinned in position with appropriate rotation as determined by the Carlos plan, we broached the tibia.? Subsequently, the 4 drill holes were made for the prosthetic component.? All trial components were removed, and the wound was irrigated.? Plans were made for insertion of the prosthetic components.? Prior to this, the patella was manually prepared.? After resection of the articular surface with the jogging system, it was measured and measured a 29 mm patella.? We resected approximately 6 mm of patella.? Patellar height was restored with the patellar component. Once again, the wound was irrigated.? The Tritanium tibia was impacted into position.? The beaded femur was then impacted into position in a cementless fashion. The CS tibial insert was placed prior to placement of the femoral component. The patella was pressed into position with a patellar clamp.? Exparel was injected about the components deep and superficially.? The knee was then copiously irrigated with betadine and saline and suctioned dry. Copious irrigation was accomplished following this. Attention was then directed to closure. Closure was accomplished with 0 Vicryl in the fascial tissues.? The suture line of 0 Vicryl was supplemented with strata fix, #1, with a running stitch from proximal to distal and a second running stitch from distal to proximal.? This was followed by Surgiflo and vancomycin powder.? Following this, a 2-0 Monocryl was used in the subcutaneous tissues, and the skin was closed with 3-0 Strata fix.? Care was taken to assure an excellent subcutaneous as well as skin closure.? A sterile dressing was then placed consisting of Dermabond Prineo, OpSite, ABD, sterile soft roll, and an [place] wrap including over the foot. The patient was returned the Recovery Room in a satisfactory condition. X- rays were obtained and reviewed there.? The patient will be discharged to the floor for postoperative rehabilitation and pain management. Related Problem List Diagnoses (1) Primary osteoarthritis of right knee: (2) Valgus deformity, not elsewhere classified, right knee:
--- NOTE | 2023-06-09 12:53 | XRR_ITS ---
PROCEDURE INFORMATION: Exam: XR Right Knee Exam date and time: 06/09/2023 12:32 PM Age: 77 years old Clinical indication: Device placement; Joint replacement hardware; Prior surgery; Surgery date: Post-operative (0-2 days); Surgery type: RT tka; Additional info: Pacu images -- post RT tka TECHNIQUE: Imaging protocol: Radiologic exam of the right knee. Views: 3 views. COMPARISON: CT knee RT [facility] [id number] 05/29/2023 10:35 AM FINDINGS: Tubes, catheters and devices: Hardware is intact. Bones/joints: Status post right knee arthroplasty. Intra-articular gas noted, likely postsurgical. Soft tissues: Moderate soft tissue swelling. XR/XR knee RT 3V* [id number] IMPRESSION: Status post right knee arthroplasty. No evidence of complication.
[2023-06-09] MEDS: pregabalin 100 mg Capsule PO ×2 (14:46→21:18)
[2023-06-09] MEDS: CELEcoxib 200 mg Capsule PO (14:46)
[2023-06-09] MEDS: tranexamic acid 1,000 MG/100 ML PREMIX 600 MG IV (14:47)
--- NOTE | 2023-06-09 14:55 | ANE.PACU2 ---
Inpatient post-anesthesia follow up: Airway intact: Yes Vital signs: Temperature 97.5 F Pulse Rate 47 Respiratory Rate 18 Blood Pressure 122/62 Pulse Oximetry 96 Oxygen Delivery Me thod Room Air Oxygen Flow Rate 6 Fraction of Inspir ed Oxygen Hydration adequate: Yes Nausea and vomiting: No Pain level: 1 Mental status: Baseline
[2023-06-09] MEDS: chlorhexidine gluconate 0.12% Btl 473 mL 30 ML MUCOUS MEM ×2 (14:56→21:20)
[2023-06-09] MEDS: pantoprazole DR 40 mg Tablet PO (18:15)
[2023-06-09] MEDS: duloxetine 20 mg Capsule PO (18:15)
[2023-06-09] MEDS: mupirocin oint 22 gm 1 APPLIC NASAL (18:15)
[2023-06-09] MEDS: famotidine 20 mg Tablet PO (18:15)
[2023-06-09] MEDS: iron polysaccharide complex 150 mg Capsule PO (18:15)
[2023-06-09] MEDS: sennosides-docusate Tablet 2 TAB PO (18:15)
[2023-06-09] MEDS: donepezil 5 MG Tablet 10 MG PO (21:19)
[2023-06-09] MEDS: atorvastatin 40 mg Tablet PO (21:19)
[2023-06-09] MEDS: mirtazapine 15 mg Tablet 7.5 MG PO (21:19)
[2023-06-09] MEDS: oxyCODONE 5 mg IR Tab/Cap PO (23:26)
[2023-06-10] MEDS: acetaminophen 1,000 MG/100 ML PIGGYBACK 400 MG IV ×2 (01:17→09:12)
[2023-06-10] MEDS: CELEcoxib 200 mg Capsule PO (01:31)
[2023-06-10] MEDS: ceFAZolin 2,000 MG in sodium chloride 0.9% (plus) 50 ML 100 MG IV ×2 (01:32→09:11)
[2023-06-10 04:20] VITALS: BP 126/69; PULSE 68; RESP 16; TEMP 36.4; O2SAT 94
[2023-06-10 05:56] LABS: Basophils % 0.2 %; Hematocrit 33.4 % (36-47); Lymphocytes # 0.9 10^3/uL (0.8-4.8); Lymphocytes % 9.2 %; Mean Corpuscular HGB Conc 32.9 g/dL (30-55); Mean Corpuscular Volume 97.1 fl (85-98); Mean Platelet Volume 11.9 fL (7.4-10.4); Monocytes # 0.7 10^3/uL (0.2-0.9); Monocytes % 6.9 %; Neutrophils # 8.08 10^3/uL (1.8-7.7); Neutrophils % 83.2 %; Nucleated Red Blood Cells % 0 %; Platelet Count 242 10^3/cmm (157-399); Red Blood Count 3.44 10^6/uL (3.85-5.65); Red Cell Distribution Width 12.1 % (12.1-15.1); White Blood Count 9.71 10^3/uL (3.29-11.43)
[2023-06-10 06:32] LABS: Anion Gap 13.7 (5-19); Blood Urea Nitrogen 11 mg/dL (8-23); Calcium 8.2 mg/dL (8.5-10.5); Carbon Dioxide 24 mmol/L (22-29); Chloride 98 mmol/L (98-107); Creatinine Clr Calc Pharmacy 53.1084; Glucose 95 mg/dL (65-115); Osmolality Calculated 273 mOsm/kg (285-295); Potassium 3.7 mmol/L (3.5-5.1); Sodium 132 mmol/L (136-145)
[2023-06-10 07:43] VITALS: BP 117/69; PULSE 80; RESP 18; TEMP 36.3; O2SAT 96
[2023-06-10] MEDS: metoprolol succinate ER (24 HR) 25 mg Tablet PO (07:53)
[2023-06-10] MEDS: duloxetine 20 mg Capsule PO (07:53)
[2023-06-10] MEDS: pregabalin 100 mg Capsule PO (07:53)
[2023-06-10] MEDS: hydroCHLOROthiazide 25 mg Tablet PO (07:53)
[2023-06-10] MEDS: pantoprazole DR 40 mg Tablet PO (07:53)
[2023-06-10] MEDS: levothyroxine 112 mcg Tablet PO (07:53)
[2023-06-10] MEDS: sennosides-docusate Tablet 2 TAB PO (07:53)
[2023-06-10] MEDS: famotidine 20 mg Tablet PO (07:54)
[2023-06-10] MEDS: vitamin A & D oint 1 APPLIC TOPICAL (07:54)
[2023-06-10] MEDS: aspirin 325 mg EC Tablet PO (07:54)
[2023-06-10] MEDS: iron polysaccharide complex 150 mg Capsule PO (07:54)
[2023-06-10 07:58] VITALS: RESP 16
[2023-06-10] MEDS: oxyCODONE 5 mg IR Tab/Cap PO (07:58)
--- NOTE | 2023-06-10 08:20 | PC.PHAR ---
pt states she takes care of her own medications-pt was a surgery pt and med rec was done by someone before a med rec tech did it today-med rec tech verified medications with pt this am on medsurg pt stated she was not taking celebrex before she came into the hospital but states she was getting it while here in the hospital ext med history shows last filled 08/30/22 30d/s 50mg bid pt states she use to take celebrex 50mg bid but states the dr thought cymbalta 20mg bid was better states she has been taking cymbalta 20mg bid states she is going to talk to the dr about giving her celebrex back since having it in the hospital-pt states she takes cyclobenzaprine 5mg hs and may take 2 extra tabs as needed rx filled 06/04/23 30d/s 5mg tid prn-pt states she takes lyrica 100mg bid normally but states she wants it left as tid rx filled 06/03/23 30d/s 100mg tid-pt states she takes aspirin 81mg qd prn-notes are made in the pharmacy comments
--- NOTE | 2023-06-10 09:24 | PC.CHAP ---
Pastoral Care Encounter/Spiritual Assessment Type of Contact [] Declined machine set up operator paper goods visit [] Patient/Family/Request visit [] Outpatient visit [] Follow-up visit [] Physician referral [] Code/Alert [] Routine visit [] Staff referral [] Actively dying [] Patient sleeping [] Family support [] [] Out of room [] Palliative care [] [x] Receiving care in room [] Pre-surgical visit [] Trauma [] Long length of stay [] ICU visit [] Other: Relational/Emotional Strength [] Patient feels connected with others/family/visitors/staff [] Distress [] Loneliness/isolation [] Abandonment Spirituality of Patient [] Person of Kayla [] Attends Presybeterian of their Kayla [] Believes in Prayer [] Reads Bible or Episcopal materials [] There are Spiritual issues to be addressed Personal Lines Insurance Agent Interventions [] Prayer [] Active listening [] Non-anxious presence [] Spiritual/emotional support [] Crisis/trauma care [] Spiritual counseling [] Bereavement support [] Provided bereavement packet [] Provided Bible/devotional materials [] Provided toy/stuffed animal, coloring book to patient or family member [] Provided Communion [] Anointing/Marana [] Salvation [] Completed spiritual assessment [] Other: Impact on Illness or Injury [] Angry [] Fearful [] Anxious [] Often cries [] Exhaustion [] Unable to work [] Unable to attend buddhism [] Unable to walk/stand [] Unable to read [] Unable to drive [] Unable to eat/drink [] Unable to sleep [] Unable to be with family [] Patient intubated [] Other: Summary Time spent with patient
[2023-06-10] MEDS: ondansetron 2 mg/ML SDV 2 mL 4 MG IVP (10:29)
[2023-06-10 11:50] VITALS: BP 145/88; PULSE 72; RESP 17; TEMP 37.8; O2SAT 94
--- NOTE | 2023-06-10 12:31 | P.DS_ITS ---
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 Procedure done: Right total knee arthroplasty with Carlos guidance Implants: The Edventory total knee system with a size 3 triathlon beaded cruciate retaining femur right, a triathlon titanium tibial component size 2 beaded, a triathlon X3 tibial bearing CS insert size 2 X 9 mm and a beaded triathlon titanium asymmetric patella size 29 x 9 mm (2) Primary osteoarthritis of right knee: Status: Acute (3) Valgus deformity, not elsewhere classified, right knee: Status: Acute Reason for Visit Reason for Visit: M17.11 Brief History: This is an established 77-year-old woman who is here today for Carlos assisted right total knee arthroplasty. Preoperatively, she complains of pain at at least a 5 of 10. She had gel 1 and cortisone injections which were no longer providing relief. The patient has significant valgus deformity to this knee and varus deformity to the left knee with significant narrowing of the compartments appropriate to those deformities. Upon review of imaging, there was significant progression from November 13, 2022. Plans were made for right total knee arthroplasty. Risks and complications were discussed with the patient, and consents were signed. Questions were answered at that time. Hospital Course Hospital Course This 77-year-old woman presented for same-day surgery for right total knee arthroplasty. She did nicely following the surgery, and on the first postoperative day, her dressing was taken down. She had no signs of DVT. She her dressing was dry and intact. She was comfortable ambulating, and physical therapy felt she was safe for discharge to home. Therefore, on postop day 1, she was discharged home to follow-up with me in the office as scheduled. Physical Exam Const: COMMON NORMALS: no acute distress, average body habitus, patient oriented x3 and alert GENERAL APPEARANCE: cooperative and comfortable ORIENTATION/CONSCIOUSNESS: Yes awake HENMT: COMMON NORMALS: normocephalic and atraumatic HEAD & SCALP: normocephalic and atraumatic Eye: GENERAL EYE: appearance normal, both eyes and all related structures Chest: COMMONS NORMALS: normal inspection of the chest Resp: COMMON NORMALS: normal respiratory effort EFFORT & INSPECTION: Yes able to speak in complete sentences and Yes symmetric chest movement Extremity: RIGHT LOWER EXTREMITY: Yes knee joint (Dressing is dry and intact.) Right knee: Yes inspection (Minimal to no swelling.), Yes ROM (Able to straight leg raise) and Yes neurovascular exam (Intact with no evidence of DVT) Neuro: COMMON NORMALS: patient oriented x3 SENSORIUM/ORIENTATION: Yes alert Psych: COMMON NORMALS: mental status grossly normal APPEARANCE: Yes grossly normal ATTITUDE: Yes calm and Yes engaged ATTENTION/CONCENTRATION: Yes attention grossly intact Skin: COMMON NORMALS: no rashes or lesions noted GENERAL SKIN EXAM: no rashes or lesions noted Urinary Catheter Management: Ruth: Cath Placed During This Visit: yes, but has since been removed by the nurse Reason for Continuing Indwelling Catheter: Decision to DC Catheter Urinary Catheter Date of Insertion: 06/09/23 Urinary Catheter Time of Insertion: 10:15 Date Urinary Catheter Removed: 06/10/23 Time Urinary Catheter Discontinued: 05:31 Discharge Data Studies Completed and Pending Completed Studies During Hospitalization Category Date Time Status XR knee RT 3V* [id number] Stat Exams 06/09/23 12:53 Completed Pending at discharge Category Date Time Status Complete Blood Count w/Auto AM LABS Lab 06/11/23 04:00 Ordered Complete Blood Count w/Auto AM LABS Lab 06/12/23 04:00 Ordered Radiology Impressions Knee X-Ray 06/09/23 12:53 IMPRESSION: Status post right knee arthroplasty. No evidence of complication. Laboratory Results WBC 9.71 10^3/uL (3.29-11.43) 06/10/23 05:13 RBC 3.44 10^6/uL (3.85-5.65) L 06/10/23 05:13 Hgb 11.00 g/dL (11.27-16.99) L 06/10/23 05:13 Hct 33.4 % (36-47) L 06/10/23 05:13 MCV 97.1 fl (85-98) 06/10/23 05:13 MCH 32.0 pg (27-33) 06/10/23 05:13 MCHC 32.9 g/dL (30-55) 06/10/23 05:13 RDW 12.1 % (12.1-15.1) 06/10/23 05:13 Plt Count 242 10^3/cmm (157-399) 06/10/23 05:13 MPV 11.9 fL (7.4-10.4) H 06/10/23 05:13 Neut % (Auto) 83.2 % 06/10/23 05:13 Lymph % (Auto) 9.2 % 06/10/23 05:13 [place] % (Auto) 6.9 % 06/10/23 05:13 Eos % (Auto) 0.0 % 06/10/23 05:13 Baso % (Auto) 0.2 % 06/10/23 05:13 Neut # (Auto) 8.08 10^3/uL (1.8-7.7) H 06/10/23 05:13 Lymph # (Auto) 0.9 10^3/uL (0.8-4.8) 06/10/23 05:13 [place] # (Auto) 0.7 10^3/uL (0.2-0.9) 06/10/23 05:13 Eos # (Auto) 0.0 10^3/uL (0.0-0.8) 06/10/23 05:13 Baso # (Auto) 0.0 10^3/uL (0.0-0.1) 06/10/23 05:13 Nucleated RBC % (auto) 0 % 06/10/23 05:13 Nucleated RBCs # 0.0 /100WBC 06/10/23 05:13 Sodium 132 mmol/L (136-145) L 06/10/23 05:13 Potassium 3.7 mmol/L (3.5-5.1) 06/10/23 05:13 Chloride 98 mmol/L (98-107) 06/10/23 05:13 Carbon Dioxide 24 mmol/L (22-29) 06/10/23 05:13 Anion Gap 13.7 (5-19) 06/10/23 05:13 BUN 11 mg/dL (8-23) 06/10/23 05:13 Creatinine 0.7 mg/dL (0.5-0.9) 06/10/23 05:13 GFR Calculation Not Reportable 06/10/23 05:13 Glucose 95 mg/dL (65-115) 06/10/23 05:13 Calculated Osmolality 273 mOsm/kg (285-295) L 06/10/23 05:13 Calcium 8.2 mg/dL (8.5-10.5) L 06/10/23 05:13 Vitals Last Vital Signs Temp 100.0 F H 06/10/23 11:50 Pulse 72 06/10/23 11:50 Resp 17 06/10/23 11:50 BP 145/88 06/10/23 11:50 Pulse Ox 94 06/10/23 11:50 O2 Del Method Room Air 06/10/23 11:50 O2 Flow Rate 6 06/09/23 13:03 Discharge Plan Discharge Patient Disposition: Home Health Service Condition: Stable Prescriptions: New acetaminophen 500 mg Tablet 1,000 mg PO Q8H Qty: 0 0RF aspirin 325 mg Tablet,Delayed Release (Dr/Ec) 325 mg PO DAILY 30 Days Qty: 0 0RF celecoxib 200 mg Capsule 200 mg PO 1XD 30 Days Qty: 30 0RF oxycodone 5 mg Tablet 5 - 10 mg PO Q4H PRN (Reason: Moderate Pain) 7 Days Qty: 30 0RF Continued famotidine 20 mg tablet 20 mg PO BID 90 Days Qty: 180 3RF levothyroxine 112 mcg tablet 112 mcg PO DAILY 90 Days Qty: 90 1RF pregabalin [Lyrica] 100 mg capsule 100 mg PO TID 30 Days Qty: 90 3RF furosemide 20 mg tablet 20 mg PO DAILY PRN (Reason: edema) 90 Days Qty: 90 1RF hydrochlorothiazide 25 mg tablet 25 mg PO DAILY 90 Days Qty: 90 1RF metoprolol succinate [Toprol XL] 25 mg tablet extended release 24 hr 25 mg PO DAILY 90 Days Qty: 90 1RF (DME) ROLLATOR WALKER See Rx Instructions .Route .MEDSUPPLY Qty: 1 0RF Rx Instructions: As directed// LENGTH OF NEED : 6MONTHS dexlansoprazole [Dexilant] 30 mg capsule,biphase delayed releas 30 mg PO BID 90 Days Qty: 180 0RF Rx Instructions: failed other PPIs duloxetine [Cymbalta] 20 mg capsule,delayed release(DR/EC) 20 mg PO BID 90 Days Qty: 180 1RF atorvastatin 40 mg tablet 40 mg PO BEDTIME donepezil 10 mg tablet 10 mg PO BEDTIME cyclobenzaprine 5 mg tablet 5 mg PO BEDTIME MDD 3 tabs mirtazapine 7.5 mg tablet 7.5 mg PO BEDTIME Held aspirin 81 mg Tablet,Delayed Release (Dr/Ec) 81 mg PO DAILY PRN (Reason: unknown) Hold Instructions: Resume on 07/11/23. May resume 81 mg aspirin after 30 days of 325 Discharge Orders: Discharge Order (Routine); Ordered 06/10/23 Ordered By: Digna Rainey Other Ambulatory Orders: DME: Walker (Order) Location: None Selected Ordered By: Digna Rainey Referrals: [facility] [place] [Outside] Digna Rainey MD [Physician] - 06/23/23 1:15 pm Discharge Diet: Advance as tolerated, Usual diet and As Directed Discharge Activity: Increase activity as tolerated, Limit activity as instructed, Use walker/crutches as instructed and As per PT/OT instructions Patient Instructions: Aspirin (By mouth), Oxycodone, Rapid Release (By mouth), Celecoxib (By mouth), Total Knee Replacement (GEN), Joint Replacement Stoplight Activity Restrictions/Additional Instructions: Weightbearing as tolerated. Strengthening, range of motion, and ambulation per physical therapy. Elevation of right leg. Maintain dressing until it comes off on its own. You may shower, but do not soak your knee. Discharge Attestations Time Spent in Discharge Care*: greater than 30 min Specific Discharge Activities: educating patient, educating and/or supporting family/caregiver, documenting/other paperwork and evaluating patient/reviewing data Quality Metrics Clinical Quality Measures [ No reported AMI, CVA or VTE this stay] Coding Level of Care Code Acute Code for Chg Fwd Diagnoses Status post total right knee replacement not using cement Z96.651 Primary osteoarthritis of right knee M17.11 Valgus deformity, not elsewhere classified, right knee M21.061
--- NOTE | 2023-06-10 12:53 | PC.NURSE ---
Patient discharged. Waiting transportation.
[2023-06-10 13:56] VITALS: BP 145/88; PULSE 72; RESP 17; TEMP 37.8; O2SAT 94
== END 2023-06-10 13:30 | disposition home health service (06) ==
LOC: MEDSURG 13:56
PROVIDERS: Nurse Practitioner; Admitting Provider Specialist; PCP Family Medicine; Visit Provider Specialist
PROC: 8E0Y0CZ Robotic Assisted Procedure of Lower Extremity, Open Approach (ICD-10-PCS; CPT 27447; principal; 2023-06-09 09:00)
DX: M17.11 Unilateral primary osteoarthritis, right knee (principal); I50.9 Heart failure, unspecified; K21.9 Gastro-esophageal reflux disease without esophagitis; E78.5 Hyperlipidemia, unspecified
CPT/HCPCS: 27447; 36415; 51702; 73562; 80048; 85025; 93005; 97110; 97116; 97161; 97530; C1776; C9290; G0378; J0131; J0690; J1100; J2371; J2405; J2704; J2710; J2795; J3370; J3490; J7030

== ENCOUNTER → 2023-06-23 11:49 | Outpatient (BNVA) | payer MEDICARE, OTHER, MEDICAID, SELFPAY | PROVIDERS: PCP Family Medicine; Visit Provider Specialist | DX: Z96.651 Presence of right artificial knee joint (principal) | CPT/HCPCS: 73560; 73565; 99024 ==

== ENCOUNTER 2023-07-09 06:00 | Outpatient (CLI) | payer MEDICARE, OTHER, MEDICAID, SELFPAY | END 2023-07-09 06:01 | disposition home or self-care (01) | LOC: MPT 07-11 11:26 | PROVIDERS: Visit Provider Family Medicine | DX: Z46.89 Encounter for fitting and adjustment of other specified devices (principal); M54.59 Other low back pain | CPT/HCPCS: L0637 ==

== ENCOUNTER 2023-07-09 06:00 | Outpatient (RCR) | payer MEDICARE, OTHER, MEDICAID, SELFPAY | END 2023-07-29 23:59 | disposition home or self-care (01) | LOC: SPT 06:00 | PROVIDERS: PCP Family Medicine; Visit Provider Specialist | DX: Z47.1 Aftercare following joint replacement surgery (principal); Z96.651 Presence of right artificial knee joint | CPT/HCPCS: 97110; 97162; G0283 ==

== ENCOUNTER → 2023-07-21 13:06 | Outpatient (BNVA) | payer MEDICARE, OTHER, MEDICAID, SELFPAY | PROVIDERS: PCP Family Medicine; Visit Provider Specialist | DX: Z96.651 Presence of right artificial knee joint (principal); M17.11 Unilateral primary osteoarthritis, right knee | CPT/HCPCS: 73560; 73565; 99024 ==

== ENCOUNTER 2023-08-26 14:58 | Outpatient (CLI) | payer MEDICARE, OTHER, MEDICAID, SELFPAY ==
--- NOTE | 2023-08-26 16:00 | MR_ITS ---
WS: [id number] MRI BRAIN WITHOUT CONTRAST HISTORY: G30.9 - Alzheimer's disease, unspecified COMPARISON: CT head 01/03/2023 TECHNIQUE: Diffusion imaging, multiplanar T1, T2 and FLAIR imaging obtained. No evidence for acute infarct or hemorrhage. Smith-white matter differentiation is normal. Moderate atrophy is symmetric. Moderate small vessel ischemic changes throughout the periventricular and subcortical white matter. No large territory infarct. Normal hippocampal formations. Ventricles and extra-axial spaces are normal. No inferior displacement of cerebellar tonsils. The sella turcica and pituitary gland are unremarkabl e. Dural venous sinuses and [place] demonstrate no abnormality on this unenhanced studies. Paranasal sinuses: Clear. Mastoid air cells: Normal. Calvarium and scalp: Intact. MR/MR head wo con* [id number] IMPRESSION: 1. No acute infarct or hemorrhage. 2. Moderate atrophy with small vessel ischemic disease. No prior infarct. No t emporal lobe atrophy.
== END 2023-08-26 14:59 | disposition home or self-care (01) ==
LOC: RAD 14:58
PROVIDERS: PCP Family Medicine; Visit Provider Family Medicine
DX: G30.9 Alzheimer's disease, unspecified (principal); F02.80 Dementia in other diseases classified elsewhere, unspecified severity, without behavioral disturbance, psychotic disturbance, mood disturbance, and anxiety; R56.9 Unspecified convulsions; R25.3 Fasciculation; I67.89 Other cerebrovascular disease; G31.9 Degenerative disease of nervous system, unspecified
CPT/HCPCS: 70551

== ENCOUNTER → 2024-04-22 09:21 | Outpatient (BNVA) | payer MEDICARE, OTHER, MEDICAID, SELFPAY | PROVIDERS: PCP Family Medicine; Visit Provider Family Medicine | DX: I10 Essential (primary) hypertension (principal); E03.9 Hypothyroidism, unspecified; E03.8 Other specified hypothyroidism; E06.3 Autoimmune thyroiditis; E78.2 Mixed hyperlipidemia | CPT/HCPCS: 80053; 80061; 84439; 84443; 84481; 85025 ==

== ENCOUNTER 2024-06-16 09:25 | Outpatient (CLI) | payer MEDICARE, OTHER, SELFPAY ==
--- NOTE | 2024-06-16 09:39 | XRR_ITS ---
PROCEDURE INFORMATION: Exam: XR Left Knee Exam date and time: 06/16/2024 9:45 AM Age: 78 years old Clinical indication: Left; No specific injury, initial pain account retention representative-lateral knee, and then pain anterior knee with swollenness over entire knee area; Additional info: M25.562 - pain in left knee TECHNIQUE: Imaging protocol: Radiologic exam of the left knee. Views: 3 views. COMPARISON: CR XR foot LT min 3V* [id number] 08/09/2020 4:12 PM FINDINGS: Bones/joints: No acute fracture or dislocation. Joint space loss of the medial and patellofemoral compartment with associated osteophytosis. Mild joint space loss of the lateral compartment. Soft tissues: Normal. XR/XR knee LT 3V* [id number] IMPRESSION: Tricompartmental osteoarthritis most significant at the medial and patellofemoral compartments.
== END 2024-06-16 09:26 | disposition home or self-care (01) ==
LOC: RAD 09:32
PROVIDERS: PCP Family Medicine; Visit Provider Family Medicine
DX: M17.12 Unilateral primary osteoarthritis, left knee (principal)
CPT/HCPCS: 73562

== ENCOUNTER → 2024-06-25 09:42 | Outpatient (BNVA) | payer MEDICARE, OTHER, SELFPAY | PROVIDERS: PCP Family Medicine; Visit Provider Nurse Practitioner | DX: M17.12 Unilateral primary osteoarthritis, left knee (principal); Z96.651 Presence of right artificial knee joint | CPT/HCPCS: 73560; 73565; 99214 ==

== ENCOUNTER → 2024-06-29 15:08 | Outpatient (BNVA) | payer MEDICARE, OTHER, SELFPAY | PROVIDERS: PCP Family Medicine; Visit Provider Family Medicine | DX: M48.062 Spinal stenosis, lumbar region with neurogenic claudication (principal); M19.90 Unspecified osteoarthritis, unspecified site; E03.9 Hypothyroidism, unspecified; E03.8 Other specified hypothyroidism; E06.3 Autoimmune thyroiditis; Z01.818 Encounter for other preprocedural examination; I10 Essential (primary) hypertension; Z63.6 Dependent relative needing care at home; F43.9 Reaction to severe stress, unspecified; M25.562 Pain in left knee; G89.29 Other chronic pain | CPT/HCPCS: 80053; 81000; 84439; 84443; 84481; 85025 ==

== ENCOUNTER → 2024-07-05 12:43 | Outpatient (BNVA) | payer MEDICARE, OTHER, SELFPAY | PROVIDERS: PCP Family Medicine; Visit Provider Nurse Practitioner | DX: M17.12 Unilateral primary osteoarthritis, left knee (principal); Z96.651 Presence of right artificial knee joint | CPT/HCPCS: 73560; 73565 ==

== ENCOUNTER 2024-07-26 09:27 | Outpatient (CLI) | payer MEDICARE, OTHER, SELFPAY ==
--- NOTE | 2024-07-26 09:30 | CT_ITS ---
WS: [id number] CT LEFT KNEE, NONCONTRAST TECHNIQUE: Noncontrast CT of the LEFT knee to include the LEFT hip and ankle. CLINICAL INFORMATION: M17.12 - Unilateral primary osteoarthritis, left knee DLP: 954.[address] scans at [facility] use at least one of these dose optimization techniques: automated exposure control; mA and/or kV adjustment per patient size (includes targeted exams where dose is matched to clinical indication); or iterative reconstruction. FINDINGS: Moderate to advanced tricompartment arthritis LEFT knee worse in the medial joint compartment. Vascular calcification. Small suprapatellar effusion. Hypertrophic patella. Popliteal cyst. Lobulated popliteal cyst measuring 3.3 x 2[address]/CT knee [facility] [id number] IMPRESSION: Images obtained for preoperative purposes.
== END 2024-07-26 09:28 | disposition home or self-care (01) ==
LOC: RAD 09:31
PROVIDERS: PCP Family Medicine; Visit Provider Nurse Practitioner
DX: M17.12 Unilateral primary osteoarthritis, left knee (principal); I70.90 Unspecified atherosclerosis; M25.462 Effusion, left knee; M89.38 Hypertrophy of bone, other site; M71.22 Synovial cyst of popliteal space [Baker], left knee
CPT/HCPCS: 73700

== ENCOUNTER → 2024-08-04 08:49 | Outpatient (BNVA) | payer MEDICARE, OTHER, SELFPAY | PROVIDERS: PCP Family Medicine; Visit Provider Family Medicine | DX: Z01.818 Encounter for other preprocedural examination (principal) | CPT/HCPCS: 80053; 81003; 85025; 93005 ==

== ENCOUNTER 2024-08-19 14:03 | Observation (INO) | payer MEDICARE, OTHER, SELFPAY ==
[2024-08-19] VITALS (22 sets, daily range): BP systolic 112–170; BP diastolic 61–101; PULSE 90–120; RESP 12–17; TEMP 36.3–37.1; O2SAT 91–99; BMI 34.5; BMI 4977.2
--- NOTE | 2024-08-19 10:32 | ANES.PREANE2 ---
Pre-Anesthetic Assessment Height/Weight: Height 5 ft Weight 177 lb Operation Date: 08/19/24 11:30 Proposed Procedures p Carlos Robot Total Knee Arthroplasty(Left) - Digna Rainey MD Anesthetic Plan ASA status: 3 Anesthesia: General Other: No prior issues with anesthesia NPO since yesterday evening History of TIA, no residual symptoms CAD history with preserved EF Hypertension on hydrochlorothiazide and metoprolol GERD, controlled with Pepcid Seizures listed in chart, patient denies Patient has Sjogren syndrome Labs reviewed acceptable for procedure EKG showing sinus rhythm with possible old anterior TN Plan for general anesthesia Medications/Allergies Home Medications ?Medication ?Instructions ?Recorded ?Confirmed ?Last Taken ?Type ROLLATOR WALKER #1 ea 03/19/23 06/29/24 Unknown Rx acetaminophen 500 mg tablet 1,000 mg (2 x 500 mg) PO Q8H #0 06/10/23 08/17/24 Unknown Rx tabs diclofenac sodium 1 % topical gel 2 g topical QID #100 grams 08/21/23 08/17/24 Unknown Rx (Arthritis Pain (diclofenac)) atorvastatin 40 mg tablet 40 mg PO DAILY 90 days #90 tabs 04/22/24 08/17/24 08/16/24 Rx celecoxib 50 mg capsule (Celebrex) 50 mg PO BID 90 days #180 caps 04/22/24 08/17/24 08/14/24 Rx dexlansoprazole 30 mg 30 mg PO BID 90 days #180 caps 04/22/24 08/17/24 08/19/24 Rx capsule,biphase delayed release levothyroxine 112 mcg tablet 112 mcg PO DAILY 90 days #90 tabs 04/22/24 08/17/24 08/19/24 Rx metoprolol succinate 25 mg 25 mg PO DAILY 90 days #90 tabs 04/22/24 08/17/24 08/17/24 Rx tablet,extended release 24 hr (Toprol XL) pregabalin 100 mg capsule (Lyrica) 100 mg PO TID 30 days #90 caps 06/29/24 08/17/24 08/17/24 Rx cyclobenzaprine 5 mg tablet See Rx Instructions .Route 07/13/24 08/17/24 Unknown Rx .COMPLEX #90 tabs donepezil 10 mg tablet 10 mg PO DAILY 08/17/24 08/17/24 08/17/24 History famotidine 20 mg tablet 20 mg PO 2XD 08/17/24 08/17/24 08/17/24 History hydrochlorothiazide 25 mg tablet 25 mg PO DAILY 08/17/24 08/17/24 08/17/24 History Allergies Allergy/AdvReac Type Severity Reaction Status Date / Time No Known Drug Allergies Allergy Unknown Verified 08/19/24 10:26 [facility] Anesthesia Medical History Primary osteoarthritis of left knee Willing to be an organ donor Overweight COVID-19 vaccine administered History of calcium pyrophosphate deposition disease (CPPD) Immunization counseling High risk medication use Osteoarthritis of hands, bilateral Inflammatory arthritis Raynauds disease Fibromyalgia GERD (gastroesophageal reflux disease) Osteoarthritis Hyperlipidemia Cataract Surgical History History of appendectomy H/O: hysterectomy History of cholecystectomy History of back surgery Family History Father Diabetes Embolism Mother Diabetes Stroke Sister No problems noted. Sister Cancer breast Diabetes Kidney failure Brother Cancer lung? Other Lupus Rheumatoid arthritis Denies family history of CAD (coronary artery disease) Chronic kidney disease (CKD) Lung disease Social History Smoking and tobacco/nicotine status: never used tobacco/nicotine Second hand smoke exposure: No Alcohol intake: former Substance/Drug Use: never Caregiver/support person: Yes Lives independently: Yes Data Anesthesia Cardiac Studies: Echocardiogram 02/10/23
--- NOTE | 2024-08-19 11:09 | P.HPUD_ITS ---
Surgery/Procedure H&P Update DATE OF PROCEDURE: August 19, 2024 DATE H&P PERFORMED: 08/04/24 H&P UPDATE INFORMATION: I have reviewed H&P completed within last 30 days, I have examined patient prior to procedure, No changes to prior documentation, H&P is in [facility] EMR on date indicated and Risks and benefits of the procedure reviewed PLANNED PROCEDURE: Operation Date: 08/19/24 11:30 Proposed Procedures p Carlos Robot Total Knee Arthroplasty(Left) - Digna Rainey MD Related Problem List Diagnoses (1) Primary osteoarthritis of left knee:
[2024-08-19] MEDS: CELEcoxib 200 mg Capsule 400 MG PO (11:13)
[2024-08-19] MEDS: gabapentin 300 mg Capsule PO (11:13)
[2024-08-19] MEDS: sodium chloride 0.9% 1,000 ML 30 ML IV (11:14)
[2024-08-19] MEDS: acetaminophen 1,000 MG/100 ML PIGGYBACK 400 MG IV ×2 (11:16→19:39)
[2024-08-19] MEDS: ceFAZolin 2,000 mg SDV 2000 MG IVP ×2 (11:24→19:37)
--- NOTE | 2024-08-19 11:39 | ANES.PROC ---
Anesthesia Procedures Procedure/Date: 08/19/24 Nerve Block ^: Nerve Block 1: Main Anesthesia: general anesthesia Time Out Performed: Yes Consent: requested by attending/covering physician and from patient Nerve block location: adductor canal Anesthesia monitors applied: pulse oximetry, EKG, BP cuff and oxygen Nerve block position: supine Anesthetic Used: bupivacaine 0.5% Amount of anesthesia used (mL): 15 Ultrasound used to: recognize landmarks Interscalene/Femoral BLK: other needle (pjunk 4inch) Injection: neg aspiration of heme Patient Tolerated Procedure: well Complications: none
[2024-08-19] MEDS: tranexamic acid 1,000 mg/10mL SDV 1000 MG IV (12:01)
[2024-08-19] MEDS: sodium chloride 0.9% 50 mL Bag 25 ML XX (12:21)
[2024-08-19] MEDS: BUPivacaine 0.5% INJ 30 mL 10 ML INJECTION (12:22)
[2024-08-19] MEDS: BUPivacaine liposome 13.3 mg/mL SDV 20 mL 266 MG INFILTRATI (12:22)
[2024-08-19] MEDS: ceFAZolin 1,000 mg SDV 1000 MG IRRIGATION ×2 (12:23→13:25)
[2024-08-19] MEDS: VANCOMYCIN ADD-Vantage 1,000 MG VIAL 1000 MG XX (12:24)
--- NOTE | 2024-08-19 14:26 | XR_ITS ---
WS: [id number] Left knee, AP and lateral views, 08/19/2024 Clinical Data: post op total left knee Comparison: AP both knees, left knee, 07/05/2024 Findings: There is a left knee arthroplasty. No periprosthetic fractures or loosening is seen. There is air in the joint space from recent surgery. XR/XR knee LT 1-2V [id number] Impression: Left knee arthroplasty.
--- NOTE | 2024-08-19 14:43 | P.OP_ITS ---
Operative Report Date of procedure: August 19, 2024 Pre-op diagnosis: Primary osteoarthritis left knee Post-op diagnosis: Primary osteoarthritis left knee Post-op findings: Severe degenerative osteoarthritis left knee with osteophytes Procedure done: Left total knee arthroplasty with Carlos guidance Implants: The Juan total knee system with a size 3 triathlon beaded cruciate retaining femur left, a triathlon titanium tibial component size 2 beaded, a triathlon X3 tibial bearing CS insert size 2 X 9 mm and a beaded triathlon titanium asymmetric patella size 29 x 9 mm Specimens removed/disposition: Bone, disposed of Pathology: None Surgeon: Digna Rainey MD Icer Hand: [facility] operating room technicians Anesthesia: General (Per LMA, ASA 3) Estimated blood loss (mL): 150 Tourniquet time (min): 0 (Not utilized) IV fluids (mL): 1,500 Urine output (mL): 100 Complications: None Findings: Severe degenerative osteoarthritis without severe deformity. Complete denudement of cartilage. Disposition: PACU (Then to floor for postoperative rehabilitation and pain management) Brief History: This 79-year-old woman presented to the office for complaints of severe left knee arthritis. Patient had previously undergone right total knee arthroplasty, and she did well following this. The patient was now unresponsive to could nonoperative measures. She had significant limitations in her activities of daily living. She wished to proceed with operative intervention in the form of total knee arthroplasty. Risks and complications were discussed with her. Consents were signed and questions were answered. Patient was seen preoperatively by her primary care physician. She was given further opportunity for questions on the morning of surgery. Procedure: The patient was brought to the operating theater, and after undergoing general anesthetia per LMA, with supplemental adductor canal block, ASA 3, the left lower extremity was prepped with Dura-Prep and draped in usual fashion following placement of a tourniquet high on the leg. The leg was then draped free.? Tourniquet was not elevated during the case.? A surgical pause was performed, and at the time of the surgical pause, we confirmed the site and side of surgery. Additionally, we confirmed the appropriate and timely administration of preoperative antibiotics, Ancef 2 g and Transexemic acid 1 g. An additional gram will be given postoperatively on the floor. The availability of equipment was confirmed, and the patient's identity was verbalized as well. Following the surgical pause, an incision was made centering over the patella continuing proximally and distally as necessary to allow access to the knee joint. Dissection continued through skin and soft tissues using a scalpel. Hemostasis was obtained using electrocautery. The skin incision was followed by a median parapatellar arthrotomy. The leg was extended and the patella was able to be displaced laterally.? Appropriate arrays and markers were placed in appropriate position for use of the Carlos.? Preoperative planning had been accomplished and was discussed in detail with the [facility] auto service representative.? Intraoperative mapping of the femur and tibia was accomplished after the arrays were placed.? Internal markers were also placed.? Once we had accomplished the Carlos mapping, we began the appropriate resections for placement of the prosthesis.? The plan was for a posterior cruciate retaining cementless left total knee arthroplasty. Once appropriate mapping had been accomplished, retraction was established using manual retraction by surgical technicians and also the [facility] leg positioner and retractors.? The knee was evaluated.? There was significant osteoarthritic change without significant varus or valgus deformity.? Appropriate bone resection was accomplished using the Carlos.? The femur was sized to a size 3.? Following femoral cuts, attention was directed to the tibia.? Osteophytes were r emoved prior to this portion of the procedure.? We had performed a medial release at the beginning of the procedure to allow for placement of the array.? Proximal tibia was evaluated, and it was felt that appropriate size for the tibia was a size 2.? Tray was noted to fit nicely with good coverage.? Rim fit was accomplished with the size 2. A trial reduction was accomplished after osteophytes had been removed as well as the medial and lateral menisci.? We had removed the anterior cruciate ligament remnants at the beginning of the case and preserved the posterior cruciate ligament.? Trial reduction was accomplished with a size 3 femoral cruciate retaining component and a size 2 TriTanium tibial tray.? Trial was accomplished with a 9 mm insert, with the [address], alignment was felt to be appropriate as well.? Trial components were removed after the femur had been drilled.? Prior to removal of the tibial tray which had been pinned in position with appropriate rotation as determined by the Carlos plan, we broached the tibia.? Subsequently, the 4 drill holes were made for the prosthetic component.? All trial components were removed, and the wound was irrigated.? Plans were made for insertion of the prosthetic components.? Prior to this, the patella was manually prepared.? After resection of the articular surface with the jigging system, it was measured and measured a 29 mm patella.? We resected approximately 6 mm of patella.? Patellar height was restored with the patellar component. Once again, the wound was irrigated.? The Tritanium tibia was impacted into position.? The beaded femur was then impacted into position in a cementless fashion. The CS tibial insert was placed prior to placement of the femoral component. The patella was pressed into position with a patellar clamp.? Exparel, limited dosing secondary to the adductor block, was injected about the components deep and superficially.? The knee was then copiously irrigated with betadine and saline and suctioned dry. Copious irrigation was accomplished following this. Attention was then directed to closure. Closure was accomplished with 0 Vicryl in the fascial tissues.? The suture line of 0 Vicryl was supplemented with strata fix, #1, with a running stitch from proximal to distal and a second running stitch from distal to proximal.? This was followed by Surgiflo and vancomycin powder.? Following this, a 2-0 Monocryl strata fix was used in the subcutaneous tissues, and the skin was closed with 3-0 Strata fix.? Care was taken to assure an excellent subcutaneous as well as skin closure.? A sterile dressing was then placed consisting of Dermabond Prineo, OpSite, ABD, sterile soft roll, and an [place] wrap including over the foot. The patient was returned the Recovery Room in a satisfactory condition. X-rays were obtained and reviewed there.? The patient will be discharged to the floor for postoperative rehabilitation and pain management. Related Problem List Diagnoses (1) Primary osteoarthritis of left knee:
[2024-08-19] MEDS: fentaNYL 50 mcg/mL INJ 2mL IVP (14:49)
--- NOTE | 2024-08-19 15:45 | ANE.PACU2 ---
Inpatient post-anesthesia follow up: Airway intact: Yes Vital signs: Temperature 97.9 F Pulse Rate 96 Respiratory Rate 15 Blood Pressure 148/77 Pulse Oximetry 99 Oxygen Delivery Me thod Room Air Oxygen Flow Rate 2 Fraction of Inspir ed Oxygen Hydration adequate: Yes Nausea and vomiting: No Pain level: 2 Mental status: Baseline
[2024-08-19] MEDS: oxyCODONE-APAP 10-325 mg Tablet 1 TAB PO (16:45)
[2024-08-19] MEDS: sennosides-docusate Tablet 2 TAB PO (18:20)
[2024-08-19] MEDS: iron polysaccharide complex 150 mg Capsule PO (18:20)
[2024-08-19] MEDS: calcium carbonate 500 mg Chew Tablet 1000 MG PO (18:21)
[2024-08-19] MEDS: chlorhexidine gluconate 0.12% Btl 473 mL 30 ML MUCOUS MEM ×2 (18:22→21:29)
[2024-08-19] MEDS: mupirocin oint 22 gm 1 APPLIC NASAL (18:23)
[2024-08-19] MEDS: tranexamic acid 1,000 MG/100 ML PREMIX 600 MG IV (20:05)
[2024-08-19] MEDS: oxyCODONE 5 mg IR Tab/Cap PO (22:31)
[2024-08-20] MEDS: ceFAZolin 2,000 mg SDV 2000 MG IVP ×2 (03:40→11:38)
[2024-08-20] MEDS: acetaminophen 1,000 MG/100 ML PIGGYBACK 400 MG IV ×2 (03:48→11:38)
[2024-08-20 03:52] VITALS: BP 107/68; PULSE 102; RESP 17; TEMP 36.7; O2SAT 98
[2024-08-20 04:29] LABS: Basophils % 0.2 %; Hematocrit 32.6 % (36-47); Lymphocytes # 0.9 10^3/uL (0.8-4.8); Lymphocytes % 8.3 %; Mean Corpuscular HGB Conc 32.5 g/dL (30-55); Mean Corpuscular Hemoglobin 31.1 pg (27-33); Mean Corpuscular Volume 95.6 fl (85-98); Mean Platelet Volume 11.2 fL (7.4-10.4); Monocytes # 0.9 10^3/uL (0.2-0.9); Monocytes % 8.3 %; Neutrophils # 8.84 10^3/uL (1.8-7.7); Neutrophils % 82.7 %; Nucleated Red Blood Cells % 0 %; Platelet Count 235 10^3/cmm (157-399); Red Blood Count 3.41 10^6/uL (3.85-5.65); Red Cell Distribution Width 13.9 % (12.1-15.1); White Blood Count 10.69 10^3/uL (3.29-11.43)
[2024-08-20 04:49] LABS: Anion Gap 12.3 (5-19); Blood Urea Nitrogen 10 mg/dL (8-23); Calcium 8.1 mg/dL (8.5-10.5); Carbon Dioxide 24 mmol/L (22-29); Chloride 102 mmol/L (98-107); Creatinine Clr Calc Pharmacy 69.9018; Glucose 109 mg/dL (65-115); Osmolality Calculated 278 mOsm/kg (285-295); Potassium 4.3 mmol/L (3.5-5.1); Sodium 134 mmol/L (136-145)
[2024-08-20] MEDS: sennosides-docusate Tablet 2 TAB PO (09:01)
[2024-08-20 09:02] VITALS: RESP 15; O2SAT 96
[2024-08-20] MEDS: calcium carbonate 500 mg Chew Tablet 1000 MG PO (09:02)
[2024-08-20] MEDS: aspirin 325 mg EC Tablet PO (09:02)
[2024-08-20] MEDS: oxyCODONE 5 mg IR Tab/Cap PO (09:02)
[2024-08-20] MEDS: cholecalciferol (vitamin D3) 1,000 unit Tablet 1000 UNIT PO (09:03)
[2024-08-20] MEDS: multivitamin therapeutic Tablet 1 TAB PO (09:03)
[2024-08-20] MEDS: iron polysaccharide complex 150 mg Capsule PO (09:03)
[2024-08-20] MEDS: chlorhexidine gluconate 0.12% Btl 473 mL 30 ML MUCOUS MEM (09:04)
[2024-08-20] MEDS: mupirocin oint 22 gm 1 APPLIC NASAL (09:04)
[2024-08-20 09:07] VITALS: BP 135/67; PULSE 95; RESP 16; TEMP 36.7; O2SAT 96
--- NOTE | 2024-08-20 11:59 | PC.OT ---
OT evaluation attempted with patient declining; pt has no concerns going home. OT eval will be attempted again at later time.
--- NOTE | 2024-08-20 13:20 | PM.DCS ---
Discharge Providers Date of Admission: 08/19/24 14:03 Date of Discharge: August 20, 2024 Attending Provider at Admission: Digna Rainey MD Attending Provider at Discharge: Digna Rainey MD Primary Care Provider: Jackie Ferrell MD Diagnoses at Discharge Discharge Diagnosis (1) Status post total left knee replacement not using cement: Status: Acute Permanent problem details: Date of procedure: August 19, 2024 Pre-op diagnosis: Primary osteoarthritis left knee Procedure done: Left total knee arthroplasty with Carlos guidance Implants: The Verbena total knee system with a size 3 triathlon beaded cruciate retaining femur left, a triathlon titanium tibial component size 2 beaded, a triathlon X3 tibial bearing CS insert size 2 X 9 mm and a beaded triathlon titanium asymmetric patella size 29 x 9 mm (2) Primary osteoarthritis of left knee: Status: Acute Reason for Visit Reason for Visit: M17.12 Brief History: This 79-year-old woman presented to the office for complaints of severe left knee arthritis. Patient had previously undergone right total knee arthroplasty, and she did well following this. The patient was now unresponsive to could nonoperative measures. She had significant limitations in her activities of daily living. She wished to proceed with operative intervention in the form of total knee arthroplasty. Risks and complications were discussed with her. Consents were signed and questions were answered. Patient was seen preoperatively by her primary care physician. She was given further opportunity for questions on the morning of surgery. Hospital Course Hospital Course This 79-year-old woman was admitted following total knee arthroplasty. She did well and was admitted under observation postoperatively. She participated with physical therapy. She was independent and ambulating in the room. Dressings were removed, and there was no evidence of DVT. She was ready for discharge to home and felt to be safe. Therefore, on the first postoperative day, the patient was discharged home uneventfully. Physical Exam Const: COMMON NORMALS: no acute distress, average body habitus, patient oriented x3 and alert GENERAL APPEARANCE: cooperative and comfortable ORIENTATION/CONSCIOUSNESS: Yes awake HENMT: COMMON NORMALS: normocephalic and atraumatic HEAD & SCALP: normocephalic and atraumatic Eye: GENERAL EYE: appearance normal, both eyes and all related structures Chest: COMMONS NORMALS: normal inspection of the chest Resp: COMMON NORMALS: normal respiratory effort EFFORT & INSPECTION: Yes able to speak in complete sentences and Yes symmetric chest movement Extremity: LEFT LOWER EXTREMITY: Yes knee joint (Large outer dressing removed) Left knee: Yes inspection (No significant ecchymosis), Yes ROM (Able to straight leg raise at the) and Yes neurovascular exam (Intact with no evidence of DVT) Neuro: COMMON NORMALS: patient oriented x3 SENSORIUM/ORIENTATION: Yes alert Psych: COMMON NORMALS: mental status grossly normal APPEARANCE: Yes grossly normal ATTITUDE: Yes calm and Yes engaged ATTENTION/CONCENTRATION: Yes attention grossly intact Skin: COMMON NORMALS: no rashes or lesions noted GENERAL SKIN EXAM: no rashes or lesions noted Urinary Catheter Management: Ruth: Cath Placed During This Visit: yes, but has since been removed by the nurse Reason for Continuing Indwelling Catheter: Decision to DC Catheter Urinary Catheter Date of Insertion: 08/19/24 Urinary Catheter Time of Insertion: 11:35 Date Urinary Catheter Removed: 08/20/24 Time Urinary Catheter Discontinued: 09:12 Discharge Data Studies Completed and Pending Completed Studies During Hospitalization Category Date Time Status XR knee LT 1-2V [id number] Routine Exams 08/19/24 14:26 Completed Radiology Impressions Knee X-Ray 08/19/24 14:26 Impression: Left knee arthroplasty. Laboratory Results WBC 10.69 10^3/uL (3.29-11.43) 08/20/24 04:00 RBC 3.41 10^6/uL (3.85-5.65) L 08/20/24 04:00 Hgb 10.60 g/dL (11.27-16.99) L 08/20/24 04:00 Hct 32.6 % (36-47) L 08/20/24 04:00 MCV 95.6 fl (85-98) 08/20/24 04:00 MCH 31.1 pg (27-33) 08/20/24 04:00 MCHC 32.5 g/dL (30-55) 08/20/24 04:00 RDW 13.9 % (12.1-15.1) 08/20/24 04:00 Plt Count 235 10^3/cmm (157-399) 08/20/24 04:00 MPV 11.2 fL (7.4-10.4) H 08/20/24 04:00 Neut % (Auto) 82.7 % 08/20/24 04:00 Lymph % (Auto) 8.3 % 08/20/24 04:00 [place] % (Auto) 8.3 % 08/20/24 04:00 Eos % (Auto) 0.0 % 08/20/24 04:00 Baso % (Auto) 0.2 % 08/20/24 04:00 Neut # (Auto) 8.84 10^3/uL (1.8-7.7) H 08/20/24 04:00 Lymph # (Auto) 0.9 10^3/uL (0.8-4.8) 08/20/24 04:00 [place] # (Auto) 0.9 10^3/uL (0.2-0.9) 08/20/24 04:00 Eos # (Auto) 0.0 10^3/uL (0.0-0.8) 08/20/24 04:00 Baso # (Auto) 0.0 10^3/uL (0.0-0.1) 08/20/24 04:00 Nucleated RBC % (auto) 0 % 08/20/24 04:00 Nucleated RBCs # 0.0 /100WBC 08/20/24 04:00 Sodium 134 mmol/L (136-145) L 08/20/24 04:00 Potassium 4.3 mmol/L (3.5-5.1) 08/20/24 04:00 Chloride 102 mmol/L (98-107) 08/20/24 04:00 Carbon Dioxide 24 mmol/L (22-29) 08/20/24 04:00 Anion Gap 12.3 (5-19) 08/20/24 04:00 BUN 10 mg/dL (8-23) 08/20/24 04:00 Creatinine 0.8 mg/dL (0.5-0.9) 08/20/24 04:00 GFR Calculation Not Reportable 08/20/24 04:00 Glucose 109 mg/dL (65-115) 08/20/24 04:00 Calculated Osmolality 278 mOsm/kg (285-295) L 08/20/24 04:00 Calcium 8.1 mg/dL (8.5-10.5) L 08/20/24 04:00 Vitals Last Vital Signs Temp 98.1 F 08/20/24 09:07 Pulse 95 08/20/24 09:07 Resp 16 08/20/24 09:07 BP 135/67 08/20/24 09:07 Pulse Ox 96 08/20/24 09:07 O2 Del Method Room Air 08/20/24 09:07 O2 Flow Rate 2 08/20/24 03:52 Discharge Plan Discharge Patient Disposition: Home Health Service Condition: Stable Prescriptions: New acetaminophen 500 mg Tablet 1,000 mg PO Q8H 15 Days Qty: 90 0RF aspirin 325 mg Tablet,Delayed Release (Dr/Ec) 325 mg PO DAILY 30 Days Qty: 30 0RF oxycodone 5 mg Tablet 5 - 10 mg PO Q4H PRN (Reason: Moderate To Severe Pain) 7 Days Qty: 40 0RF Continued atorvastatin 40 mg tablet 40 mg PO DAILY 90 Days Qty: 90 3RF celecoxib [Celebrex] 50 mg capsule 50 mg PO BID 90 Days Qty: 180 2RF Rx Instructions: WITH FOOD dexlansoprazole 30 mg capsule,biphase delayed releas 30 mg PO BID 90 Days Qty: 180 3RF levothyroxine 112 mcg tablet 112 mcg PO DAILY 90 Days Qty: 90 2RF metoprolol succinate [Toprol XL] 25 mg tablet extended release 24 hr 25 mg PO DAILY 90 Days Qty: 90 2RF pregabalin [Lyrica] 100 mg capsule 100 mg PO TID 30 Days Qty: 90 3RF (DME) ROLLATOR WALKER See Rx Instructions .Route .MEDSUPPLY Qty: 1 0RF Rx Instructions: As directed// LENGTH OF NEED : 6MONTHS diclofenac sodium [Arthritis Pain (diclofenac)] 1 % gel 2 g topical QID Qty: 100 1RF cyclobenzaprine 5 mg tablet See Rx Instructions .ROUTE .COMPLEX Qty: 90 5RF Dose Instruction: TAKE 1 TABLET BY MOUTH 3 TIMES A DAY NEEDED FOR MUSCLE SPASM Rx Instructions: TAKE 1 TABLET BY MOUTH 3 TIMES A DAY NEEDED FOR MUSCLE SPASM donepezil 10 mg tablet 10 mg PO DAILY Rx Instructions: TAKE 1 TABLET BY MOUTH DAILY famotidine 20 mg tablet 20 mg PO 2XD Rx Instructions: TAKE 1 TABLET BY MOUTH TWICE A DAY FOR 90 DAYS hydrochlorothiazide 25 mg tablet 25 mg PO DAILY Rx Instructions: TAKE 1 TABLET BY MOUTH DAILY acetaminophen 500 mg Tablet 1,000 mg PO Q8H Qty: 0 0RF Discharge Orders: Discharge Order (Routine); Ordered 08/20/24 Ordered By: Digna Rainey Referrals: [facility] [Outside] Digna Rainey MD [Physician, Orthopedics] - 09/03/24 10:00 am Discharge Diet: Advance as tolerated and Usual diet Discharge Activity: Increase activity as tolerated, Limit activity as instructed, Use walker/crutches as instructed and As per PT/OT instructions Patient Instructions: Acute Wound Care (DC), Precautions after Total Joint Replacement Surgery (DC), Opioid Safety, Post Anesthesia Care Activity Restrictions/Additional Instructions: Range of motion, ambulation, and strengthening. Weightbearing as tolerated. Ice to knee. Continue with home physical therapy range of motion as noted above. You may shower, but do not submerge your knee in water. You may get it wet, but no standing water. Discharge Attestations Time Spent in Discharge Care*: greater than 30 min Specific Discharge Activities: educating patient, documenting/other paperwork and evaluating patient/reviewing data Quality Metrics Clinical Quality Measures [ No reported AMI, CVA or VTE this stay] Coding Level of Care Code Acute Code for Chg Fwd Diagnoses Status post total left knee replacement not using cement Z96.652 Primary osteoarthritis of left knee M17.12
[2024-08-20 14:30] VITALS: BP 130/76; PULSE 99; RESP 16; TEMP 36.7; O2SAT 96
== END 2024-08-20 14:30 | disposition home health service (06) ==
LOC: OBGYN 14:03
PROVIDERS: Admitting Provider Specialist; PCP Family Medicine; Visit Provider Specialist
PROC: 8E0Y0CZ Robotic Assisted Procedure of Lower Extremity, Open Approach (ICD-10-PCS; CPT 27447; principal; 2024-08-19 11:30)
DX: M17.12 Unilateral primary osteoarthritis, left knee (principal); Z86.73 Personal history of transient ischemic attack (TIA), and cerebral infarction without residual deficits; I25.10 Atherosclerotic heart disease of native coronary artery without angina pectoris; I10 Essential (primary) hypertension; K21.9 Gastro-esophageal reflux disease without esophagitis; M35.00 Sjogren syndrome, unspecified; E78.5 Hyperlipidemia, unspecified; M79.7 Fibromyalgia; I73.00 Raynaud's syndrome without gangrene; I50.30 Unspecified diastolic (congestive) heart failure
CPT/HCPCS: 27447; 20985; 36415; 51702; 73560; 80048; 85025; 97110; 97116; 97161; A4216; C1776; G0378; J0131; J0666; J0690; J1100; J1171; J2250; J2405; J2704; J3010; J3370; J3490; J7030; J9999

== ENCOUNTER → 2024-08-30 14:39 | Outpatient (BNVA) | payer MEDICARE, OTHER, SELFPAY | PROVIDERS: PCP Family Medicine; Visit Provider Family Medicine | DX: N39.0 Urinary tract infection, site not specified (principal) | CPT/HCPCS: 81000; 87077; 87086; 87184 ==

== ENCOUNTER → 2024-09-10 11:23 | Outpatient (BNVA) | payer MEDICARE, OTHER, SELFPAY | PROVIDERS: PCP Family Medicine; Visit Provider Nurse Practitioner | DX: Z98.890 Other specified postprocedural states (principal); Z96.652 Presence of left artificial knee joint | CPT/HCPCS: 73560; 73565; 99024 ==

== ENCOUNTER → 2024-09-13 13:58 | Outpatient (BNVA) | payer MEDICARE, OTHER, SELFPAY | PROVIDERS: PCP Family Medicine; Visit Provider Family Medicine | DX: R30.9 Painful micturition, unspecified (principal); Z96.652 Presence of left artificial knee joint; M19.90 Unspecified osteoarthritis, unspecified site; N39.0 Urinary tract infection, site not specified; R30.0 Dysuria | CPT/HCPCS: 81000; 85025; 87077; 87086; 87184 ==

== ENCOUNTER → 2024-09-27 10:52 | Outpatient (BNVA) | payer MEDICARE, OTHER, SELFPAY | PROVIDERS: PCP Family Medicine; Visit Provider Family Medicine | DX: N39.0 Urinary tract infection, site not specified (principal) | CPT/HCPCS: 81000; 87086 ==

== ENCOUNTER → 2024-10-20 10:50 | Outpatient (BNVA) | payer MEDICARE, OTHER, SELFPAY | PROVIDERS: PCP Family Medicine; Visit Provider Specialist | DX: Z98.890 Other specified postprocedural states (principal); Z96.652 Presence of left artificial knee joint | CPT/HCPCS: 73560; 73565; 99024 ==

== ENCOUNTER → 2024-11-02 12:41 | Outpatient (BNVA) | payer MEDICARE, OTHER, SELFPAY | PROVIDERS: PCP Family Medicine; Visit Provider Orthopaedic Surgery | DX: M51.362 Other intervertebral disc degeneration, lumbar region with discogenic back pain and lower extremity pain (principal); M41.80 Other forms of scoliosis, site unspecified; M41.56 Other secondary scoliosis, lumbar region | CPT/HCPCS: 72100; 99213 ==

== ENCOUNTER 2024-11-08 14:02 | Outpatient (CLI) | payer MEDICARE, OTHER, SELFPAY ==
--- NOTE | 2024-11-08 14:30 | MR_ITS ---
WS: [id number] MRI LUMBAR SPINE NONCONTRAST HISTORY: back pain COMPARISON: 11/22/2020 TECHNIQUE: Sagittal and axial multisequence imaging is submitted. There is lumbar curvature. LEFT rotoscoliosis lumbar spine. No marrow edema. No acute fracture. Advanced degenerative disc disease from L2-3 to L5-S1 with osteophytes. Conus terminates normally at L1-2 disc level. L1-L2: Mild disc bulging and osteophytic ridging. Mild bilateral foraminal stenosis and facet arthritis. Shallow RIGHT paracentral disc protrusion. L2-L3: Diffuse osteophytic ridging and annular disc bulging. Mild bilateral foraminal stenosis. Severe facet joint arthropathy. L3-L4: Diffuse osteophytic ridging, disc bulging and facet arthritis. Small disc protrusion. RIGHT foraminal disc osteophyte. Moderate to severe RIGHT and mild LEFT foraminal stenosis. L4-L5: Diffuse annular disc bulging with osteophytic ridging, ligamentum flavum and facet arthritis. Moderate to severe bilateral foraminal stenosis, LEFT greater than RIGHT. Mild central stenosis. Prior RIGHT hemilaminectomy defect. L5-S1: Annular disc bulging with osteophytic ridging. Severe LEFT and mild RIGHT foraminal stenosis. Mild disc contact on the LEFT S1 nerve root. Prior RIGHT hemilaminectomy defect. Minimal progression of degenerative changes in the lumbar spine. MR/MR lumbar spine wo con* [id number] IMPRESSION: 1. Degenerative LEFT scoliosis lumbar spine. 2. Multilevel areas of central foraminal stenosis and advanced degenerative di sc disease as above. 3. Mild foraminal stenosis at L1-2 and L2-3 and facet joint arthropathy. 4. L3-4: Moderate to severe RIGHT and mild LEFT foraminal stenosis. 5. L4-5: Moderate to severe bilateral foraminal stenosis, LEFT greater than RI GHT and mild central stenosis. 6. L5-S1: Severe LEFT and mild RIGHT foraminal stenosis.
== END 2024-11-08 14:03 | disposition home or self-care (01) ==
LOC: RAD 14:03
PROVIDERS: PCP Family Medicine; Visit Provider Orthopaedic Surgery
DX: M48.061 Spinal stenosis, lumbar region without neurogenic claudication (principal); M51.360 Other intervertebral disc degeneration, lumbar region with discogenic back pain only
CPT/HCPCS: 72148

== ENCOUNTER 2024-11-10 13:10 | Outpatient (CLI) | payer MEDICARE, OTHER, SELFPAY ==
--- NOTE | 2024-11-10 14:00 | XR_ITS ---
WS: [id number] SCREENING DEXA SCAN [employer] CLINICAL INFORMATION: back pain COMPARISON: 2014 FINDINGS: Lumbar scoliosis. The L1-L4 bone mineral density measures 1.303 g/cm2. This corresponds to a T score score of 1.0 and Z score of 2.5. Left femoral neck bone mineral density measures 0.762 g/cm2. This corresponds to a T score of -2.0 and Z score of -0.2. Right femoral neck bone mineral density measures 0.764 g/cm2. This corresponds to a T score -1.9of and Z score of -0.2. Mean femoral neck bone mineral density measures 0.763 g/cm2. This corresponds to a T score of -1.9 and Z score of -0.2. XR/XR DEXA axial skeleton* [id number] IMPRESSION: Normal bone mineralization lumbar spine. Osteopenia femoral necks. Patient's FRAX calculated 10 year probability for major osteoporotic fracture i s 26.5% and osteoporotic hip fracture is 8.8%.
== END 2024-11-10 13:11 | disposition home or self-care (01) ==
LOC: RAD 13:10
PROVIDERS: PCP Family Medicine; Visit Provider Orthopaedic Surgery
DX: Z13.820 Encounter for screening for osteoporosis (principal); M41.9 Scoliosis, unspecified; M85.852 Other specified disorders of bone density and structure, left thigh; M85.851 Other specified disorders of bone density and structure, right thigh
CPT/HCPCS: 77080

== ENCOUNTER → 2024-11-11 10:24 | Outpatient (BNVA) | payer MEDICARE, OTHER, SELFPAY | PROVIDERS: PCP Family Medicine; Visit Provider Nurse Practitioner | DX: R30.0 Dysuria (principal); N39.0 Urinary tract infection, site not specified | CPT/HCPCS: 81000; 87086 ==

== ENCOUNTER → 2024-11-25 13:10 | Outpatient (BNVA) | payer MEDICARE, OTHER, SELFPAY | PROVIDERS: PCP Family Medicine; Visit Provider Orthopaedic Surgery | DX: M41.56 Other secondary scoliosis, lumbar region (principal); M51.362 Other intervertebral disc degeneration, lumbar region with discogenic back pain and lower extremity pain | CPT/HCPCS: 99214 ==

== ENCOUNTER → 2024-11-26 09:22 | Outpatient (BNVA) | payer MEDICARE, OTHER, SELFPAY | PROVIDERS: PCP Family Medicine; Visit Provider Orthopaedic Surgery | DX: Z01.818 Encounter for other preprocedural examination (principal) | CPT/HCPCS: 80053; 81000; 85025 ==

== ENCOUNTER → 2025-02-23 14:12 | Outpatient (BNVA) | payer MEDICARE, OTHER, SELFPAY | PROVIDERS: PCP Family Medicine; Visit Provider Family Medicine | DX: I10 Essential (primary) hypertension (principal); E03.8 Other specified hypothyroidism; E06.3 Autoimmune thyroiditis | CPT/HCPCS: 80048; 84443 ==

== ENCOUNTER → 2025-03-10 10:27 | Outpatient (BNVA) | payer MEDICARE, OTHER, SELFPAY | PROVIDERS: PCP Family Medicine; Visit Provider Orthopaedic Surgery | DX: M48.062 Spinal stenosis, lumbar region with neurogenic claudication (principal) | CPT/HCPCS: 99213 ==

== ENCOUNTER 2025-03-16 15:23 | Inpatient (IN) | payer MEDICARE, OTHER, SELFPAY ==
[2025-03-16] VITALS (51 sets, daily range): BP systolic 68–152; BP diastolic 41–110; PULSE 63–114; RESP 11–33; TEMP 35.1–36.4; O2SAT 92–100; BMI 32.5; BMI 34.0
--- NOTE | 2025-03-16 08:56 | PC.NURSE ---
Brought patient into pre-op room. Upon initial examination patient showed me a rash that was on the operative site along with arms, legs, and hands. Patient stated she had not made it to see bark spudder but that she had an appointment scheduled. Dr. Rubin was notified of patients's condition and the decision was made to cancel procedure until patient follows up with dermatology.
--- NOTE | 2025-03-16 09:43 | ANES.PREANE2 ---
Pre-Anesthetic Assessment Height/Weight: Height 5 ft 1 in Weight 172 lb Temp Pulse Resp BP Pulse Ox O2 Del Method 97.6 F 73 17 149/80 98 Room Air 03/16/25 09:23 03/16/25 09:23 03/16/25 09:23 03/16/25 09:23 03/16/25 09:23 03/16/25 09:24 Preop Diagnosis: Lumbar stenosis neurogenic claudication; degenerative scoliosis Operation Date: 03/16/25 10:00 Proposed Procedures p Spinal Fusion PSF lumbar(Not Applicable) - Brendon Snow Caron, DO s Thoracic Fusion(Not Applicable) - Brendon Snow Caron, DO s Posterior Lumbar Interbody Fusion PLIF(Not Applicable) - Brendon Rubin, DO s Lumbopelvic Fixation(Not Applicable) - Brendon Snow Caron, DO s Sacroiliac Joint Fusion SI Joint Fusion(Bilateral) - Brendon Rubin, DO Was Beta Adrianna taken within 24 hours: N/A Was Clonidine taken within 24 hours: N/A Last intake: Intake Last Liquid Date 03/15/25 Last Liquid Time 16:00 Last Solid Date 03/15/25 Last Solid Time 16:00 Social No alcohol and No tobacco Exam alert, oriented x 3, clear to auscultation bilaterally and regular rate & rhythm Airway Submandibular: within normal limits Cervical ROM: within normal limits Mallampati: Class III Comments: Comments: Missing multiple teeth, denies any loose Anesthetic Plan ASA status: 3 Anesthesia: General Other: No prior issues with anesthesia NPO since yesterday evening History of TIA, no residual symptoms CAD history with preserved EF Hypertension on hydrochlorothiazide and metoprolol Patient had a PE from her knee surgery in July. Was placed on Eliquis. Patient states they took her off Eliquis in January and she has been doing well GERD, controlled with Pepcid Seizures listed in chart, patient denies Patient has Sjogren syndrome Labs reviewed from 02/23/2025 acceptable for procedure today EKG showing sinus rhythm with possible old anterior NH Plan for general anesthesia Medications/Allergies Home Medications ?Medication ?Instructions ?Recorded ?Confirmed ?Last Taken ?Type ROLLATOR WALKER #1 ea 03/19/23 03/10/25 Unknown Rx acetaminophen 500 mg tablet 1,000 mg (2 x 500 mg) PO Q8H #0 06/10/23 03/15/25 Unknown Rx tabs donepezil 10 mg tablet 10 mg PO DAILY 08/17/24 03/15/25 03/14/25 History atorvastatin 40 mg tablet 40 mg PO DAILY 90 days #90 tabs 02/23/25 03/15/25 03/14/25 Rx celecoxib 50 mg capsule (Celebrex) 50 mg PO BID 90 days #180 caps 02/23/25 03/15/25 03/15/25 Rx dexlansoprazole 30 mg 30 mg PO BID 90 days #180 caps 02/23/25 03/15/25 03/15/25 Rx capsule,biphase delayed release famotidine 20 mg tablet 20 mg PO BID 90 days #180 tabs 02/23/25 03/16/25 03/16/25 Rx hydrochlorothiazide 25 mg tablet 25 mg PO DAILY #90 tabs 02/23/25 03/15/25 03/15/25 Rx metoprolol succinate 25 mg 25 mg PO DAILY 90 days #90 tabs 02/23/25 03/16/25 03/16/25 Rx tablet,extended release 24 hr (Toprol XL) pregabalin 100 mg capsule (Lyrica) 100 mg PO TID 30 days #90 caps 02/23/25 03/15/25 03/15/25 Rx levothyroxine 125 mcg tablet 125 mcg PO DAILY #90 tabs 03/10/25 03/16/25 03/16/25 Rx cyclobenzaprine 5 mg tablet 5 mg PO 3XD PRN Spasms 03/15/25 03/15/25 03/14/25 History Allergies Allergy/AdvReac Type Severity Reaction Status Date / Time No Known Drug Allergies Allergy Unknown Verified 03/16/25 09:20 Current Medications Generic Name Dose Route Start Last Admin Trade Name Freq PRN Reason Stop Dose Admin Sodium Chloride 1,000 mls @ 30 mls/hr 03/16/25 09:15 03/16/25 09:33 Sodium Chloride 0.9% IV 03/17/25 09:14 30 mls/hr .Q24H RIOS Administration PFSH Anesthesia Medical History Primary osteoarthritis of left knee Willing to be an organ donor Overweight COVID-19 vaccine administered History of calcium pyrophosphate deposition disease (CPPD) Immunization counseling High risk medication use Osteoarthritis of hands, bilateral Inflammatory arthritis Raynauds disease Fibromyalgia GERD (gastroesophageal reflux disease) Osteoarthritis Hyperlipidemia Cataract Surgical History History of appendectomy H/O: hysterectomy History of cholecystectomy History of back surgery Family History Father Diabetes Embolism Mother Diabetes Stroke Sister No problems noted. Sister Cancer breast Diabetes Kidney failure Brother Cancer lung? Other Lupus Rheumatoid arthritis Denies family history of CAD (coronary artery disease) Chronic kidney disease (CKD) Lung disease Social History Smoking and tobacco/nicotine status: never used tobacco/nicotine Second hand smoke exposure: No Alcohol intake: former Substance/Drug Use: never Caregiver/support person: Yes Lives independently: Yes Data Anesthesia Cardiac Studies: Echocardiogram 02/10/23
--- NOTE | 2025-03-16 10:39 | W.PM.OPSUD ---
Surgery/Procedure H&P Update DATE OF PROCEDURE: March 16, 2025 DATE H&P PERFORMED: 03/10/25 H&P UPDATE INFORMATION: I have reviewed H&P completed within last 30 days, I have examined patient prior to procedure and No changes to prior documentation PREOP DIAGNOSIS: Lumbar stenosis neurogenic claudication; degenerative scoliosis PLANNED PROCEDURE: Operation Date: 03/16/25 10:00 Proposed Procedures p Spinal Fusion PSF lumbar(Not Applicable) - Brendon Rubin DO s Thoracic Fusion(Not Applicable) - DO asaf Wilhelm Posterior Lumbar Interbody Fusion PLIF(Not Applicable) - DO asaf Wilhelm Lumbopelvic Fixation(Not Applicable) - DO asaf Wilhelm Sacroiliac Joint Fusion SI Joint Fusion(Bilateral) - Brendon Rubin DO
[2025-03-16] MEDS: ceFAZolin 2,000 mg SDV 2000 MG IVP ×2 (12:25→20:53)
[2025-03-16] MEDS: tobramycin 40 mg/mL SDV 2mL 240 MG XX (13:30)
[2025-03-16] MEDS: lidocaine-epi 1% 20 mL INJ INJECTION (13:30)
[2025-03-16] MEDS: heparin, porcine 1,000 unit/mL INJ 10 mL 10000 UNIT IRRIGATION (13:47)
--- NOTE | 2025-03-16 16:55 | P.OP_ITS ---
Operative Report Date of procedure: March 16, 2025 Pre-op diagnosis: Lumbar stenosis neurogenic claudication Degenerative scoliosis Post-op diagnosis: same Procedure done: 1. T10 to pelvis fusion posterior fusion 2. T10-S1 posterior spine instrumentation 3. Lumbopelvic instrumentation 4. Open SI joint fusion on the right 5. Open SI joint fusion on the left 6. L2/3 Payne Parkinson osteotomy 7. Use of computer navigation stereotactic for spine 8. Use of allograft Surgeon: Brendon Rubin DO Estimated blood loss (mL): 250 Procedure: 1. T10 to pelvis fusion posterior fusion 2. T10-S1 posterior spine instrumentation 3. Lumbopelvic instrumentation 4. Open SI joint fusion on the right 5. Open SI joint fusion on the left 6. L2/3 Payne Parkinson osteotomy 7. Use of computer navigation stereotactic for spine 8. Use of allograft Patient brought to the operative suite after undergoing anesthesia was placed in the prone position. All areas impingement well-padded. Patient is prepped and draped in normal sterile fashion. Skin incisions made using the previous skin incision extending slightly above and below. The thoracolumbar fascia was split and subperiosteal dissection was made out to the transverse process of T10 - L5 bilaterally as well as the sacral ala bilaterally. Sacrum and SI joints were dissected out as well. Next attention was brought to placing the fiducial for the C-arm. This is going to be used for the computer navigation. 2 pins were placed into the right iliac crest which were later moved to the end of the case. The fiducial was attached. C-arm was brought in and then spun around the patient. The information from C arm was then later used after is loaded the computer for the placement of pedicle screws. Next attention was brought to placing the pedicle screws. This was done T10 bilaterally, T11 bilaterally, T12 bilaterally, L1 on the left, L2 bilaterally, L3 bilaterally L4 bilaterally, L5 bilaterally and S1 bilaterally. The computer navigated awl was inserted into the pedicle. Followed by the pedicle feeler. Followed by placement of the screws using the computer navigation. At all these levels. Next attention was placing the iliac screws. This was done using the computer navigated awl. This is placed through the ala across the SI joint into the iliac crest. Then followed by the pedicle feeler. Followed by computer navigated tap. 80 mm 9.5 millimeter pedicle screws were then placed into the il iac crest. This was done bilaterally. Next attention was brought to the open SI joint fusions. This was done by using the computer navigated awl crossing the SI joint. Through direct visualization as well. The pedicle feeler was used to make sure was crossed no breaches. The canal was then filled with bone graft. And then a computer navigated SI joint fusion screws placed across the SI joint. This process was done on both the right and the left side. Payne Shahram osteotomy was then performed L2/3. [place]ur was used to take down the spinous process and interspinous ligaments above and below the L2 spinous process. The high-speed bur was used to take down the lamina of L2 the L2/3 facet joints were taken down with a high-speed bur bilaterally curved curette and Kerrisons were used to take the remaining bone down the ligament flavum was taken down from L2/3. Ligamentum flavum was taken down from L2 lamina down to L3. The facet joint was taken down bilaterally. The L2 nerves were completely free bilaterally and the L3 nerves were traced around the L3 pedicles bilaterally. Wounds were then irrigated. The zelalem was then attached from [id number] L1 and L2 L3, L4, L5, S1 and into the iliac screw completing the lumbopelvic fixation. This was done bilaterally. The zelalem was then rotated on the right side. Reducing the scoliosis. The right side from L5-L1 was distracted. X-rays were then taken that showed that the scoliosis correction occurred. The screw caps were then torqued into position. This was done bilaterally. Next attention was brought to decorticating the transverse processes of T10 bilateral T11 bilaterally T12 bilaterally L1 bilaterally L2 bilaterally L3 bilaterally L4 bilaterally L5 bilaterally and sacral ala bilaterally as well as the SI joints. Osteoamp bone graft was then packed into the gutters. And across the SI joint. Vancomycin powder and tobramycin was mixed with calcium sulfate beads packed into the wound was placed deep drain was placed and wound was closed in layered fashion with Vicryl and Monocryl. Sterile dressings were applied patient was transferred to the PACU in stable condition.
--- NOTE | 2025-03-16 17:09 | P.CONIM_ITS ---
Documented by User: Xena Tompkins NP 03/16/25 18:11 Providers/Reason For Consult 2 Consulting Physician/Specialty*: Hospitalist Internal Medicine Reason for Consult*: Medical Management Attending Physician: Brendon Rubin DO Primary Care Provider: Jackie Ferrell MD History of Present Illness History of Present Illness Joana Spaulding is a 79 year old female past medical history of osteoarthritis, Raynaud's disease, depression, hypothyroidism, hypertension, fibromyalgia, GERD, hyperlipidemia, cataracts, CPPD, degenerative scoliosis, and lumbar stenosis with neurogenic claudication who underwent [id number] fusion with attending Orthopedic Surgeon earlier today. Hospitalist team was contacted for medical management. Vital signs: Blood pressure 93/53, HR 73, Resp 18, Temp 97.4F, O2 sat 100% on 4L/min nasal cannula. Labs pending. Patient has had a difficult time waking up from anesthesia. Blood pressure soft and needing oxygen supplementation currently. VBG and H&H pending currently. BiPap ordered with concern for hypoventilation. Reviewed patient with . Patient will go to ICU for close monitoring and may be able to transfer to the floor once she is more stable. Review of Systems 2 General: Reports: ROS unobtainable due to mental status Medications/Allergies Home Medications ?Medication ?Instructions ?Recorded ?Confirmed ?Last Taken ?Type ROLLATOR WALKER #1 ea 03/19/23 03/10/25 Unkn own Rx acetaminophen 500 mg tablet 1,000 mg (2 x 500 mg) PO Q 8H #0 06/10/23 03/15/25 Unknown Rx tabs donepezil 10 mg tablet 10 mg PO DAILY 08/17/2402/2803/14/25 History atorvastatin 40 mg tablet 40 mg PO DAILY 90 days #90 t abs 02/23/25 03/15/25 03/14/25 Rx celecoxib 50 mg capsule (Celebrex) 50 mg PO BID 90 day s #180 caps 02/23/25 03/15/25 03/15/25 Rx dexlansoprazole 30 mg 30 mg PO BID 90 days #180 ca ps 02/23/25 03/15/25 03/15/25 Rx capsule,biphase delayed release famotidine 20 mg tablet 20 mg PO BID 90 days #180 ta bs 02/23/25 03/16/25 03/16/25 Rx hydrochlorothiazide 25 mg tablet 25 mg PO DAILY #90 ta bs 02/23/25 03/15/25 03/15/25 Rx metoprolol succinate 25 mg 25 mg PO DAILY 90 days #90 tabs 02/23/25 03/16/25 03/16/25 Rx tablet,extended release 24 hr (Toprol XL) pregabalin 100 mg capsule (Lyrica) 100 mg PO TID 30 da ys #90 caps 02/23/25 03/15/25 03/15/25 Rx levothyroxine 125 mcg tablet 125 mcg PO DAILY #90 tabs 03/10/25 03/16/25 03/16/25 Rx cyclobenzaprine 5 mg tablet 5 mg PO 3XD PRN Spasms 03/15/25 03/14/25 History Allergies Allergy/AdvReac Type Severity Reaction Status Date / Time No Known Drug Allergies Allergy Unknown Verified 03/16/25 09:20 Current Medications Generic Name Dose Route Start Last Admin Trade Name Freq PRN Reason Stop Dose Admin Sodium Chloride 1,000 mls @ 30 mls/hr 03/16/25 09:15 03/16/25 13:58 Sodium Chloride 0.9% IV 03/17/25 09:14 Infused .Q24H RIOS Infusion PFSH Acute 2 PFSH: Medical History Primary osteoarthritis of left knee Willing to be an organ donor Overweight COVID-19 vaccine administered History of calcium pyrophosphate deposition disease (CPPD) Immunization counseling High risk medication use Osteoarthritis of hands, bilateral Inflammatory arthritis Raynauds disease Fibromyalgia GERD (gastroesophageal reflux disease) Osteoarthritis Hyperlipidemia Cataract Surgical History History of appendectomy H/O: hysterectomy History of cholecystectomy History of back surgery Family History Father Diabetes Embolism Mother Diabetes Stroke Sister No problems noted. Sister Cancer breast Diabetes Kidney failure Brother Cancer lung? Other Lupus Rheumatoid arthritis Denies family history of CAD (coronary artery disease) Chronic kidney disease (CKD) Lung disease Social History Smoking and tobacco/nicotine status: never used tobacco/nicotine Second hand smoke exposure: No Alcohol intake: former Substance/Drug Use: never Caregiver/support person: Yes Lives independently: Yes Vitals/I&O/Wt Last Vital Signs Temp 97.4 F L 03/16/25 16:50 Pulse 73 03/16/25 17:00 Resp 18 03/16/25 17:00 BP 93/53 03/16/25 17:00 Pulse Ox 100 03/16/25 17:00 O2 Del Method Nasal Cannula 03/16/25 17:00 O2 Flow Rate 4 03/16/25 17:00 03/16/25 03/16/25 03/16/25 06:59 14:59 22:59 Intake Total 1000 / 1000 1500 / 2500 Output Total 1600 / 1600 Balance 1000 / 1000 -100 / 900 Weight last 48 hrs Weight 78.018 kg Physical Exam 2 Const: ORIENTATION/CONSCIOUSNESS: Yes awake OTHER: Patient able to arouse by voice, still very lethargic from anesthesia, moaning in pain with movement HENMT: COMMON NORMALS: oropharynx normal Neck/C-Spine: COMMON NORMALS: no JVD Resp: COMMON NORMALS: normal respiratory effort and clear to auscultation bilaterally AUSCULTATION: clear to auscultation bilaterally OTHER: Currently requiring oxygen supplementation 4 L/min via nasal cannula Cardio: COMMON NORMALS: no JVD, regular rhythm, S1 normal heart sound present, S2 normal heart sound present and No murmurs present (Cardio) RHYTHM: regular rhythm HEART SOUNDS: S1 normal heart sound present and S2 normal heart sound present GI: COMMON NORMALS: Soft to palpation and non-tender PALPATION: Yes Soft to palpation OTHER: Hypoactive bowel sound x 4 Back/Pelvis: OTHER: Spinal incision covered with dressing, spinal drain present on right lower back Extremity: COMMON NORMALS: no joint enlargement and no pedal edema Neuro: COMMON NORMALS: moves all extremities Skin: COMMON NORMALS: no rashes or lesions noted GENERAL SKIN EXAM: no rashes or lesions noted Urinary Catheter Management: Ruth: Cath Placed During This Visit: yes Urinary Catheter Date of Insertion: 03/16/25 Urinary Catheter Time of Insertion: 11:41 Data 03/16/25 17:45 03/16/25 18:31 A&P Assessment and plan 1. Lumbar stenosis with neurogenic claudication: Lumbar decompression 2. Primary hypertension: 3. Overweight: 4. Mild cognitive impairment with memory loss: 5. 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 Fibromyalgia: Plan: Lumbar stenosis with neurogenic claudication - S/p T10 through pelvis fusion earlier today - Management per attending - Multi-modal pain control - Fall precautions - PT evaluation and recommendations tomorrow - Hold any anticoagulation for 48hrs post operatively Post operative hypoxia Post operative hypotension - Continue IV fluids with LR 90mL/hr - Will place on levophed - Hemoglobin 8.10, Hct 26.8 - Supplemental Oxygen - VBG: pH 7.141, pCO2 57, pO2 38.4 - BiPap Primary hypertension - Currently hypotensive 93/53 - Hold blood pressure medication Overweight - BMI 32.5 - Lifestyle modifications/weight loss Cognitive impairment - Continue home medication Aricept 10mg Daily Hyperlipidemia - Continue Lipitor 40mg Daily Hypothyroidism - Continue home medication Levothyroxine 125mcg Fibromyalgia - Continue home medication Lyrica 100mg TID VTE PPX: SCD's avoid anticoagulation x 48hrs GI PPX: PPI Code Status: Full Code PDMP PDMP Reviewed: Not Reviewed Consult Attestations 2 Medical Necessity Statement: Per attending Coding Level of Care Code Critical Care >/= 30 minutes Diagnoses Lumbar stenosis with neurogenic claudication M48.062 Primary hypertension I10 Hypertension type: primary hypertension Overweight E66.3 Mild cognitive impairment with memory loss G31.84 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 Documented by User: Mc Rivas MD 03/16/25 20:12 Medications/Allergies Home Medications ?Medication ?Instructions ?Recorded ?Confirmed ?Last Taken ?Type ROLLATOR WALKER #1 ea 03/19/23 03/10/25 Unkn own Rx acetaminophen 500 mg tablet 1,000 mg (2 x 500 mg) PO Q 8H #0 06/10/23 03/15/25 Unknown Rx tabs donepezil 10 mg tablet 10 mg PO DAILY 05/20/25 12/1 6/25 12/15/25 History atorvastatin 40 mg tablet 40 mg PO DAILY 90 days #90 t abs 02/23/25 03/15/25 03/14/25 Rx celecoxib 50 mg capsule (Celebrex) 50 mg PO BID 90 day s #180 caps 02/23/25 03/15/25 03/15/25 Rx dexlansoprazole 30 mg 30 mg PO BID 90 days #180 ca ps 02/23/25 03/15/25 03/15/25 Rx capsule,biphase delayed release famotidine 20 mg tablet 20 mg PO BID 90 days #180 ta bs 02/23/25 03/16/25 03/16/25 Rx hydrochlorothiazide 25 mg tablet 25 mg PO DAILY #90 ta bs 02/23/25 03/15/25 03/15/25 Rx metoprolol succinate 25 mg 25 mg PO DAILY 90 days #90 tabs 02/23/25 03/16/25 03/16/25 Rx tablet,extended release 24 hr (Toprol XL) pregabalin 100 mg capsule (Lyrica) 100 mg PO TID 30 da ys #90 caps 02/23/25 03/15/25 03/15/25 Rx levothyroxine 125 mcg tablet 125 mcg PO DAILY #90 tabs 03/10/25 03/16/25 03/16/25 Rx cyclobenzaprine 5 mg tablet 5 mg PO 3XD PRN Spasms 03/15/25 03/14/25 History Allergies Allergy/AdvReac Type Severity Reaction Status Date / Time No Known Drug Allergies Allergy Unknown Verified 03/16/25 09:20 PFSH Acute 2 PFSH: Medical History Primary osteoarthritis of left knee Willing to be an organ donor Overweight COVID-19 vaccine administered History of calcium pyrophosphate deposition disease (CPPD) Immunization counseling High risk medication use Osteoarthritis of hands, bilateral Inflammatory arthritis Raynauds disease Fibromyalgia GERD (gastroesophageal reflux disease) Osteoarthritis Hyperlipidemia Cataract Surgical History History of appendectomy H/O: hysterectomy History of cholecystectomy History of back surgery Family History Father Diabetes Embolism Mother Diabetes Stroke Sister No problems noted. Sister Cancer breast Diabetes Kidney failure Brother Cancer lung? Other Lupus Rheumatoid arthritis Denies family history of CAD (coronary artery disease) Chronic kidney disease (CKD) Lung disease Social History Smoking and tobacco/nicotine status: never used tobacco/nicotine Second hand smoke exposure: No Alcohol intake: former Substance/Drug Use: never Caregiver/support person: Yes Lives independently: Yes Physical Exam 2 Urinary Catheter Management: Ruth: Cath Placed During This Visit: yes Data 03/16/25 17:45 03/16/25 18:31 A&P Assessment and plan 1. Lumbar stenosis with neurogenic claudication: 2. Primary hypertension: 3. Overweight: 4. Mild cognitive impairment with memory loss: 5. 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 Fibromyalgia: PDMP PDMP Reviewed: Not Reviewed Consult Attestations 2 Other Attestations: Other Attestations: Patient seen and examined in PACU after discussing with DIANNA and orthopedic surgery, chart reviewed. Discussed with FIRST HELPER and BETTING AGENCY MANAGER. He is lethargic, with prolonged recovery from anesthesia. ABG has been obtained. Blood pressure low in PACU, MAP 52-54. Receiving third liter fluid. Without signs of fluid overload at this time. Reported blood pressures low 100 systolic during procedure requiring start of Surya-Synephrine due to increased requirement for sedation. Requiring several liters of oxygen for maintenance of oxygen saturation. Appears pale. Reported 800 mL blood loss. Hemoglobin sent out. Producing urine. CMP requested. Disposition changed to intensive care unit. Discussed with patient's and nephew in the waiting room. Hemoglobin returning at 8.1, prior of 12 back in October. Being transfused 1 unit RBC. Recheck hemoglobin 2 hours after transfusion. Combination of respiratory and metabolic acidosis. BiPAP requested in case continues to have difficulty waking up. Levophed requested. On reassessment blood pressure with improvement MAP up to 63. Subsequently waking up more, systolic blood pressures up into 100 teens- 120s. Continue monitoring in the ICU. Cut down metoprolol dose to 12.5. Hold pregabalin for now. Hold off NSAIDs for now. Reassess renal function. Monitor intake and output. Discussed with overnight provider. Coding Level of Care Code Critical Care >/= 30 minutes Critical care time (in minutes): 35 The high probability of a clinically significant, sudden or life threatening deterioration, as referenced in this documentation, required my full and direct attention, intervention and personal management. The critical care time shown is in addition to time spent performing any reported separately billable procedures and includes the following: [x] Data and vital sign review and interpretation [x ] Patient assessment, examination and intervention [x] Medication orders and management [x] Patient/Family updates as able [x] Care Coordination and Documentation. 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
[2025-03-16 17:52] LABS: Hematocrit 26.8 % (36-47); Hemoglobin 8.10 g/dL (11.27-16.99)
[2025-03-16 17:56] LABS: Base Excess VBG -9.3 mmol/L (-3.0-3.0); Blood Gas Operator Identificat WALCI; Blood Gas Sample Type Venous; HCO3 VBG 19.4 mmol/L (24-28); PCO2 VBG 57.0 mmHg (41-51); PO2 VBG 38.4 mmHg (25-40); Venous Blood Gas Hematocrit 26.7 % (37-47)
[2025-03-16 17:57] LABS: pH VBG 7.14 (7.32-7.42)
--- NOTE | 2025-03-16 18:22 | SUR.PHASEI ---
EVELYN TRAINING OFFICER at bedside with pt, hospitalist came to evaluate pt, based on BP, pain and oxygen needs it was decided pt would go to ICU. Pt was held in PACU until a nurse was available to take the pt in ICU per jeffrey Lopez.
[2025-03-16 19:04] LABS: Alanine Aminotransferase 19 U/L (0-33); Albumin Level 3.2 g/dL (3.5-5.2); Alkaline Phosphatase 90 U/L (35-105); Anion Gap 16.3 (5-19); Aspartate Amino Transferase 45 U/L (0-32); Blood Urea Nitrogen 13 mg/dL (8-23); Calcium 7.3 mg/dL (8.5-10.5); Carbon Dioxide 18 mmol/L (22-29); Chloride 107 mmol/L (98-107); Globulin 2.3 g/dL (1.3-4.6); Glucose 170 mg/dL (65-115); Osmolality Calculated 290 mOsm/kg (285-295); Potassium 3.3 mmol/L (3.5-5.1); Sodium 138 mmol/L (136-145); Total Protein 5.5 g/dL (6.6-8.7)
[2025-03-16] MEDS: norepinephrine 4 MG/250 ML BAG 15 MG IV (19:49)
[2025-03-16] MEDS: morphine 4 mg/mL SDV 1 mL 2 MG IVP ×3 (20:02→22:54)
[2025-03-16] MEDS: HYDROcodone-acetaminophen 5-325 mg Tablet PO (20:45)
--- NOTE | 2025-03-16 21:16 | PC.NURSE ---
Physician Notification: Spoke w/ Dr. Rubin @1953 to update on pt status. New order to keep hemovac drain to gravity. Provider was made aware that medications order for 1700 would be given late.
[2025-03-16] MEDS: ondansetron 2 mg/ML SDV 2 mL 4 MG IVP (21:34)
[2025-03-16 22:24] LABS: Base Excess VBG -6.9 mmol/L (-3.0-3.0); Blood Gas Allen Test Pos; Blood Gas LPM 2.0 %; Blood Gas Operator Identificat BD; Blood Gas Sample Site vein; Blood Gas Sample Type Venous; HCO3 VBG 19.8 mmol/L (24-28); PCO2 VBG 43.3 mmHg (41-51); PO2 VBG 45.5 mmHg (25-40); Venous Blood Gas Hematocrit 32.8 % (37-47); pH VBG 7.27 (7.32-7.42)
[2025-03-16 22:50] LABS: Anion Gap 15.0 (5-19); Blood Urea Nitrogen 11 mg/dL (8-23); Calcium 7.5 mg/dL (8.5-10.5); Carbon Dioxide 20 mmol/L (22-29); Chloride 107 mmol/L (98-107); Glucose 145 mg/dL (65-115); Magnesium 1.3 mg/dL (1.7-2.3); Osmolality Calculated 288 mOsm/kg (285-295); Potassium 4.0 mmol/L (3.5-5.1); Sodium 138 mmol/L (136-145)
[2025-03-16] MEDS: magnesium sulfate premix 2 GM/50 ML PIGGYBACK IV (23:35)
[2025-03-16 23:39] LABS: Hemoglobin 9.90 g/dL (11.27-16.99)
[2025-03-17] VITALS (30 sets, daily range): BP systolic 76–130; BP diastolic 56–91; PULSE 76–128; RESP 10–21; TEMP 36.6–36.8; O2SAT 90–100
[2025-03-17] MEDS: HYDROmorphone 0.5 MG/0.5 ML INJ IVP ×4 (00:38→20:08)
[2025-03-17] MEDS: HYDROcodone-acetaminophen 5-325 mg Tablet PO ×4 (03:38→22:28)
[2025-03-17 04:12] LABS: Hematocrit 27.8 % (36-47); Hemoglobin 8.80 g/dL (11.27-16.99); Mean Corpuscular HGB Conc 31.7 g/dL (30-55); Mean Corpuscular Hemoglobin 28.3 pg (27-33); Mean Corpuscular Volume 89.4 fl (85-98); Nucleated Red Blood Cells % 0 %; Platelet Count 215 10^3/cmm (157-399); Red Blood Count 3.11 10^6/uL (3.85-5.65); White Blood Count 11.53 10^3/uL (3.29-11.43)
[2025-03-17 04:42] LABS: Alanine Aminotransferase 17 U/L (0-33); Albumin Level 3.3 g/dL (3.5-5.2); Alkaline Phosphatase 83 U/L (35-105); Anion Gap 13.6 (5-19); Aspartate Amino Transferase 55 U/L (0-32); Blood Urea Nitrogen 11 mg/dL (8-23); Calcium 7.6 mg/dL (8.5-10.5); Carbon Dioxide 21 mmol/L (22-29); Chloride 104 mmol/L (98-107); Globulin 2.1 g/dL (1.3-4.6); Glucose 119 mg/dL (65-115); Magnesium 2.0 mg/dL (1.7-2.3); Osmolality Calculated 279 mOsm/kg (285-295); Potassium 4.6 mmol/L (3.5-5.1); Sodium 134 mmol/L (136-145); Total Protein 5.4 g/dL (6.6-8.7)
[2025-03-17] MEDS: metoprolol succinate ER (24 HR) 25 mg Tablet 12.5 MG PO (05:26)
[2025-03-17] MEDS: ceFAZolin 2,000 mg SDV 2000 MG IVP ×2 (05:31→13:28)
--- NOTE | 2025-03-17 08:22 | P.PN_ITS ---
Subjective 2 Subjective: Patient in the ICU. Patient is sitting up in the bed. Having some pain in her back. Was having some blood pressure she is at this point blood pressure is 109/63. Vitals/I&O/Wt Last Vital Signs Temp 97.8 F 03/17/25 03:43 Pulse 108 H 03/17/25 06:00 Resp 19 H 03/17/25 06:00 BP 109/63 03/17/25 06:00 Pulse Ox 97 03/17/25 06:00 O2 Del Method Nasal Cannula 03/17/25 06:00 O2 Flow Rate 2 03/17/25 06:00 03/16/25 03/17/25 03/17/25 22:59 06:59 14:59 Intake Total 2234.375 / 3234.375 1195.5 / 4429.875 Output Total 1825 / 1825 785 / 2610 Balance 409.375 / 1409.375 410.5 / 1819.875 Weight last 48 hrs Weight 180 lb 11.2 oz Weight 180 lb 1.6 oz Weight 172 lb Physical Exam 2 Narrative: Patient's prior 5 strength in bilateral lower extremities sensation intact Urinary Catheter Management: Ruth: Cath Placed During This Visit: yes Reason for Continuing Indwelling Catheter: Accurate Measurement of Urinary Output in Critically Ill Patients Urinary Catheter Date of Insertion: 03/16/25 Urinary Catheter Time of Insertion: 11:41 Data 03/17/25 03:35 03/17/25 03:35 A&P Assessment and plan 1. Status post lumbar spinal fusion: Postop day #1 T10 to pelvis fusion Up with physical therapy Will continue drain for 1 more day PDMP PDMP Reviewed: Not Reviewed Attestations 2 Medical Necessity Statement*: Pain control Coding Level of Care Code Acute Code for Chg Fwd Diagnoses Status post lumbar spinal fusion Z98.1
--- NOTE | 2025-03-17 09:09 | P.PN_ITS ---
Subjective 2 Subjective: Patient is a very pleasant 79 yo female patient of Dr. Rubin's s/p T1-Pelvic fusion who was seen and examined on hospital rounds today. Patient In bed ANO x 3, stating back discomfort but states that she can feel her feet and move her limbs without any issues this morning. Patient denies new or worsening symptoms. Blood pressure much improved, vital signs are very stable with blood pressure 119/64, pulse 100, respiration 17, temp 98, O2 sat 96. Patient still requiring some supplemental oxygen via nasal cannula 2 L/min we will wean as tolerated. WBC most likely reactionary 11.53, no signs or symptoms of infection. Hemoglobin 8.80 we will continue to monitor closely. Sodium 134, creatinine 0.9, BUN 11, AST 55. Pending physical therapy evaluation and recommendations, suspect patient may need SNF level of care at discharge. Will transition patient from ICU to [facility] floor. Hospitalist team is grateful to consult in the medical management of this patient. Vitals/I&O/Wt Last Vital Signs Temp 98 F 03/17/25 12:00 Pulse 100 03/17/25 12:00 Resp 17 03/17/25 12:00 BP 119/64 03/17/25 12:00 Pulse Ox 96 03/17/25 12:00 O2 Del Method Nasal Cannula 03/17/25 12:00 O2 Flow Rate 2 03/17/25 12:00 03/16/25 03/17/25 03/17/25 22:59 06:59 14:59 Intake Total 2234.375 / 3234.375 1195.5 / 4429.875 140 / 140 Output Total 1825 / 1825 785 / 2610 Balance 409.375 / 1409.375 410.5 / 1819.875 140 / 140 Weight last 48 hrs Weight 81.964 kg Weight 81.692 kg Weight 78.018 kg Physical Exam 2 Const: COMMON NORMALS: alert ORIENTATION/CONSCIOUSNESS: Yes awake, Yes oriented to person, Yes oriented to place and Yes oriented to time HENMT: COMMON NORMALS: oropharynx normal Neck/C-Spine: COMMON NORMALS: no JVD Resp: COMMON NORMALS: normal respiratory effort and clear to auscultation bilaterally AUSCULTATION: clear to auscultation bilaterally OTHER: Currently requiring oxygen supplementation 2 L/min via nasal cannula Cardio: COMMON NORMALS: no JVD, regular rhythm, S1 normal heart sound present, S2 normal heart sound present and No murmurs present (Cardio) RHYTHM: regular rhythm HEART SOUNDS: S1 normal heart sound present and S2 normal heart sound present GI: COMMON NORMALS: Normal to inspection, nondistended, normoactive bowel sounds present, Soft to palpation and non-tender PALPATION: Yes Soft to palpation Back/Pelvis: OTHER: Spinal incision covered with dressing, c/d/i Extremity: COMMON NORMALS: no joint enlargement and no pedal edema Neuro: COMMON NORMALS: moves all extremities SENSORIUM/ORIENTATION: Yes alert, Yes oriented to person, Yes oriented to place and Yes oriented to time Skin: COMMON NORMALS: no rashes or lesions noted GENERAL SKIN EXAM: no rashes or lesions noted Urinary Catheter Management: Ruth: Cath Placed During This Visit: yes Reason for Continuing Indwelling Catheter: Accurate Measurement of Urinary Output in Critically Ill Patients Urinary Catheter Date of Insertion: 03/16/25 Urinary Catheter Time of Insertion: 11:41 Data 03/17/25 03:35 03/17/25 03:35 A&P Assessment and plan 1. Lumbar stenosis with neurogenic claudication: Lumbar decompression 2. Primary hypertension: 3. Overweight: 4. Mild cognitive impairment with memory loss: 5. 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 Fibromyalgia: Plan: Lumbar stenosis with neurogenic claudication - S/p T10 through pelvis fusion 03/16 - Management per attending - Multi-modal pain control - Fall precautions - PT evaluation and recommendations - Hold any anticoagulation for 48hrs post operatively Post operative hypoxia improving Post operative hypotension, resolved - Continue IV fluids with LR 90mL/hr - S/p 2u pRBC's - Hemoglobin 8.80 - Supplemental Oxygen - VBG: pH 7.27, pCO2 43.3, pO2 45.5, HCO3 19.8 - Wean supplemental oxygen as tolerated Primary hypertension - Currently B/p 119/64 - Hold blood pressure medication Overweight - BMI 32.5 - Lifestyle modifications/weight loss Cognitive impairment - Continue home medication Aricept 10mg Daily Hyperlipidemia - Continue Lipitor 40mg Daily Hypothyroidism - Continue home medication Levothyroxine 125mcg Fibromyalgia - Continue home medication Lyrica 100mg TID VTE PPX: SCD's avoid anticoagulation x 48hrs GI PPX: PPI Code Status: Full Code PDMP PDMP Reviewed: Not Reviewed Attestations 2 Medical Necessity Statement*: Per attending Coding Level of Care Code 25238 Diagnoses Lumbar stenosis with neurogenic claudication M48.062 Primary hypertension I10 Hypertension type: primary hypertension Overweight E66.3 Mild cognitive impairment with memory loss G31.84 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
[2025-03-17] MEDS: ondansetron 2 mg/ML SDV 2 mL 4 MG IVP ×2 (09:56→14:05)
--- NOTE | 2025-03-17 10:34 | XR_ITS ---
WS: [id number] Lumbar spine, C-arm fluoroscopy views, 03/16/2025 Clinical Data: or pic, spinal fusion Comparison: Lumbar spine, 11/02/2024 Findings: Dr. Rubin performed thoracolumbar sacral posterior fusion. XR/XR lumbar spine 2-3V* [id number] Impression: Posterior thoracolumbar sacral fusion.
--- NOTE | 2025-03-17 12:52 | PC.NURSE ---
1200 report called to Iqra MORRIS. Patient alert and oriented x 4, on 2l nc saturation 96%. vitals stable. Did sit in chair for 45 minutes earlier in shift. Still taking po and iv pain medications. Dressing to back dry and intact with hemovac drain in place scan drainage in collection device. Ruth remains in place. iv x 2 with LR at 90 ml/hr- Patient transported at 1230 via bed.
[2025-03-18] MEDS: HYDROmorphone 0.5 MG/0.5 ML INJ IVP ×2 (01:22→06:45)
[2025-03-18] MEDS: ondansetron 2 mg/ML SDV 2 mL 4 MG IVP (01:27)
[2025-03-18 04:00] VITALS: BP 121/75; PULSE 67; RESP 16; TEMP 36.8; O2SAT 98
[2025-03-18] MEDS: metoprolol succinate ER (24 HR) 25 mg Tablet 12.5 MG PO (04:16)
[2025-03-18] MEDS: HYDROcodone-acetaminophen 5-325 mg Tablet PO ×3 (04:16→20:36)
[2025-03-18 06:27] LABS: Hematocrit 23.7 % (36-47); Hemoglobin 8.20 g/dL (11.27-16.99); Mean Corpuscular HGB Conc 34.6 g/dL (30-55); Mean Corpuscular Hemoglobin 28.7 pg (27-33); Mean Corpuscular Volume 82.9 fl (85-98); Nucleated Red Blood Cells % 0 %; Platelet Count 98 10^3/cmm (157-399); Red Blood Count 2.86 10^6/uL (3.85-5.65); White Blood Count 14.41 10^3/uL (3.29-11.43)
[2025-03-18 06:28] LABS: Alanine Aminotransferase 10 U/L (0-33); Albumin Level 3.1 g/dL (3.5-5.2); Alkaline Phosphatase 86 U/L (35-105); Blood Urea Nitrogen 8 mg/dL (8-23); Calcium 8.2 mg/dL (8.5-10.5); Carbon Dioxide 20 mmol/L (22-29); Chloride 102 mmol/L (98-107); Globulin 2.0 g/dL (1.3-4.6); Glucose 115 mg/dL (65-115); Osmolality Calculated 277 mOsm/kg (285-295); Sodium 134 mmol/L (136-145); Total Protein 5.1 g/dL (6.6-8.7)
[2025-03-18 06:39] LABS: Anion Gap 16.2 (5-19); Aspartate Amino Transferase 40 U/L (0-32); Potassium 4.2 mmol/L (3.5-5.1)
[2025-03-18 06:59] LABS: Slide Review Slide Review Perform
[2025-03-18 07:32] VITALS: BP 96/51; PULSE 117; RESP 16; TEMP 37.1; O2SAT 97
--- NOTE | 2025-03-18 09:37 | P.PN_ITS ---
Subjective 2 Subjective: Patient is alert and oriented patient is having pain in her back. Better than yesterday but still pretty severe. Vitals/I&O/Wt Last Vital Signs Temp 98.8 F 03/18/25 07:32 Pulse 117 H 03/18/25 07:32 Resp 16 03/18/25 07:32 BP 96/51 03/18/25 07:32 Pulse Ox 97 03/18/25 07:32 O2 Del Method Nasal Cannula 03/18/25 07:32 O2 Flow Rate 1 03/18/25 07:32 03/17/25 03/18/25 03/18/25 22:59 06:59 14:59 Intake Total 1120 / 1260 1248 / 2508 0 / 0 Output Total 820 / 820 500 / 1320 Balance 300 / 440 748 / 1188 0 / 0 Weight last 48 hrs Weight 184 lb Weight 180 lb 11.2 oz Weight 180 lb 1.6 oz Physical Exam 2 Narrative: Patient is resting in bed. Currently caseworkers and they are evaluating her for jail placement. Urinary Catheter Management: Ruth: Cath Placed During This Visit: yes Reason for Continuing Indwelling Catheter: Other Urinary Catheter Date of Insertion: 03/16/25 Urinary Catheter Time of Insertion: 11:41 Data 03/18/25 06:03 03/18/25 06:03 A&P Assessment and plan 1. Status post lumbar spinal fusion: Patient is T10 to pelvis fusion postop day #2 Up with physical therapy DC Hemovac drain Discharge planning with leather case finisher to skilled facility PDMP PDMP Reviewed: Not Reviewed Attestations 2 Medical Necessity Statement*: Pain control Coding Level of Care Code Acute Code for Chg Fwd Diagnoses Status post lumbar spinal fusion Z98.1
[2025-03-18 11:04] VITALS: BP 113/72; PULSE 110; RESP 16; TEMP 36.6; O2SAT 91
--- NOTE | 2025-03-18 11:34 | P.PN_ITS ---
Subjective 2 Subjective: Patient is a very pleasant 79-year-old female seen and examined at bedside on hospital rounds today. Patient was found trying to get out of bed, and wanting to get up and use the bathroom although Ruth catheter is in place. Patient continues to endorse pretty severe back pain today but does not want to go to [facility]. Patient states that she has a nephew at home that can help out. Will remove Ruth catheter today. Work on better pain control and continue PT/OT. Greatly appreciate case management and coordination of discharge planning whether this to be to SNF versus home health. Review of vital signs, stable blood pressure 113/72, elevated heart rate 110 this could be due to laying in, respiration 16, temperature 97.8, O2 sat 91% on room air. Review of labs WBC 14.41 this is most likely reactionary to surgery, hemoglobin 8.20 we will continue to closely monitor, platelet count 98, sodium 134, BUN 8, creatinine 0.7, AST 40, ALT 10, alk phos 86. Vitals/I&O/Wt Last Vital Signs Temp 98.8 F 03/18/25 07:32 Pulse 117 H 03/18/25 07:32 Resp 16 03/18/25 07:32 BP 96/51 03/18/25 07:32 Pulse Ox 97 03/18/25 07:32 O2 Del Method Nasal Cannula 03/18/25 07:32 O2 Flow Rate 1 03/18/25 07:32 03/17/25 03/18/25 03/18/25 22:59 06:59 14:59 Intake Total 1120 / 1260 1248 / 2508 240 / 240 Output Total 820 / 820 500 / 1320 Balance 300 / 440 748 / 1188 240 / 240 Weight last 48 hrs Weight 83.461 kg Weight 81.964 kg Weight 81.692 kg Physical Exam 2 Const: COMMON NORMALS: alert ORIENTATION/CONSCIOUSNESS: Yes awake, Yes oriented to person, Yes oriented to place and Yes oriented to time HENMT: COMMON NORMALS: oropharynx normal Neck/C-Spine: COMMON NORMALS: no JVD Resp: COMMON NORMALS: normal respiratory effort and clear to auscultation bilaterally AUSCULTATION: clear to auscultation bilaterally Cardio: COMMON NORMALS: no JVD, regular rhythm, S1 normal heart sound present, S2 normal heart sound present and No murmurs present (Cardio) RHYTHM: regular rhythm HEART SOUNDS: S1 normal heart sound present and S2 normal heart sound present GI: COMMON NORMALS: Normal to inspection, nondistended, normoactive bowel sounds present, Soft to palpation and non-tender PALPATION: Yes Soft to palpation Back/Pelvis: OTHER: Spinal incision covered with dressing, c/d/i Extremity: COMMON NORMALS: no joint enlargement and no pedal edema Neuro: COMMON NORMALS: moves all extremities SENSORIUM/ORIENTATION: Yes alert, Yes oriented to person, Yes oriented to place and Yes oriented to time Skin: COMMON NORMALS: no rashes or lesions noted GENERAL SKIN EXAM: no rashes or lesions noted Urinary Catheter Management: Ruth: Cath Placed During This Visit: yes Reason for Continuing Indwelling Catheter: Other Urinary Catheter Date of Insertion: 03/16/25 Urinary Catheter Time of Insertion: 11:41 Data 03/18/25 06:03 03/18/25 06:03 A&P Assessment and plan 1. Lumbar stenosis with neurogenic claudication: Lumbar decompression 2. Primary hypertension: 3. Overweight: 4. Mild cognitive impairment with memory loss: 5. 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 Fibromyalgia: Plan: Lumbar stenosis with neurogenic claudication - S/p T10 through pelvis fusion 03/16 - Management per attending - Multi-modal pain control - Fall precautions - PT evaluation and recommendations, HH vs SNF - Hold any anticoagulation for 48hrs post operatively Post operative hypoxia improving Post operative hypotension, resolved - Continue IV fluids with LR 90mL/hr - S/p 1u pRBC's - Hemoglobin 8.80-<8.20 - Supplemental Oxygen - Wean supplemental oxygen as tolerated, currently on room air Primary hypertension - Currently B/p 113/72 - Hold blood pressure medication Overweight - BMI 32.5 - Lifestyle modifications/weight loss Cognitive impairment - Continue home medication Aricept 10mg Daily Hyperlipidemia - Continue Lipitor 40mg Daily Hypothyroidism - Continue home medication Levothyroxine 125mcg Fibromyalgia - Continue home medication Lyrica 100mg TID VTE PPX: SCD's avoid anticoagulation x 48hrs GI PPX: PPI Code Status: Full Code PDMP PDMP Reviewed: Not Reviewed Attestations 2 Medical Necessity Statement*: Per attendng Coding Level of Care Code 56287 Diagnoses Lumbar stenosis with neurogenic claudication M48.062 Primary hypertension I10 Hypertension type: primary hypertension Overweight E66.3 Mild cognitive impairment with memory loss G31.84 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
--- NOTE | 2025-03-18 11:56 | PC.SOCIAL ---
IMM Update pg 2 of IMM updated and reviewed w/ patient. Copy provided and copy dated, initialed and placed in chart.
--- NOTE | 2025-03-18 13:39 | PC.OT ---
Patient refused treatment stating that she was too cold. Blankets were provided.
--- NOTE | 2025-03-18 15:48 | PC.NURSE ---
pt is increasingly confused, angel cotton puller notified. she ordered 1 time dose of Vistaril. pt refused to take po med. pt also removed her iv again.
--- NOTE | 2025-03-18 17:40 | P.EN_ITS ---
<Statement entered by Mc Rivas MD - 03/18/25 21:13> This evening very suspicious of staff's intentions, and the states she became quite angry with them. Became confused this evening, with paranoid ideation. Pulled her IV, out of bed and would not return. Seen and assessed at bedside, on discussion with her redirected to bed, requested as needed Haldol 2 mg IM in case of further agitation, Ruth catheter was removed earlier today, although reportedly has been urinating. Straight cath, UA requested. With history of dementia as discussed with her family, at risk of delirium. Has been in pain as well and requiring opioids. One-to-one sitter arranged. Discussed with detailer school photographs. Her will look for DPOA paperwork at home, instructed to bring it. Event Note Event Note: Was contacted by nursing that the patient was very agitated and pulled out her IV, screaming and yelling at staff. Arrived at the bedside patient threatening to hit and swinging at staff, determined patient was at risk of harming herself and staff. Patient's spouse and nephew were at the bedside, spouse states that he does have POA but he does not know where that paperwork is. Family attempted to calm the patient, patient was not cooperative with any of attempted interventions. Witnessed patient get out of bed and get into her seat of her walker - staff at bedside attempting to keep patient safe and from falling. Hospital security came to bedside and attempted to de-escalate. Had ordered PRN haldol previously, but unable to give due to patient's aggitation. Contacted who came to the bedside and was able to talk patient to getting back in bed. Haldol not given. Restraints not used at this time. Awaiting POA paperwork from family, but family states that they can not take this patient home and care for her if she continues to do this. Pending U/a, left arm U/s, and bladderscan.
--- NOTE | 2025-03-18 19:32 | PC.NURSE ---
pt became increasingly confused and combative, angel musical performer called, met with nurse and pts family at bedside
[2025-03-18 20:00] VITALS: BP 134/69; PULSE 118; RESP 20; TEMP 36.9; O2SAT 91
--- NOTE | 2025-03-19 01:06 | PC.NURSE ---
Patient refusing all nursing care at this time. Patient declined head-to-toe assessment. Patient also refused IV insertion despite education provided on purpose and importance of medications ordered through IV. Patient verbalized refusal and continued to decline all interventions. Dr. Jackson notified of patient's refusal of care. Patient is completely orientated to person, name, birthday, place, situation, year, president.
--- NOTE | 2025-03-19 01:17 | PC.NURSE ---
Pt currently sleeping. Bed locked, lowest position, SR up x2. Call light and belongings in reach.
[2025-03-19 02:10] VITALS: BP 121/78
[2025-03-19] MEDS: HYDROcodone-acetaminophen 5-325 mg Tablet PO ×3 (02:10→18:44)
--- NOTE | 2025-03-19 05:41 | PC.NURSE ---
Pt allowed me to do an assessment around 0200. Pt seemed more calm and relax. Around 0500, pt refused vitals, all medications despite given education regarding the importance of them, refused Haldol Dr. Jackson prescribed for agitation. Pt refused to answer orientation questions and stated I want you damn girls to leave me alone and quit talking to me, all you are trying to do is kill me, go to hell. I reeducated pt on the importance of vitals and medications again, and pt stated Leave me alone. Dr. Jackson made aware.
[2025-03-19] MEDS: CYCLOBENZAPRINE HCL 5 MG TABLET PO ×2 (08:25→23:41)
--- NOTE | 2025-03-19 09:47 | USR_ITS ---
PROCEDURE INFORMATION: Exam: US Left Limited Joint or Other Non-Vascular Extremity Structure Exam date and time: 03/19/2025 10:02 AM Age: 79 years old Clinical indication: Device placement; PT pulled iv out and hid it. Eval to confirm no foreign body remained from iv. ; Additional info: PT removed iv, confirm no iv cath left in arm TECHNIQUE: Imaging protocol: US left limited joint or other nonvascular extremity structure. Real-time ultrasound with image documentation. Exam focused on the area of clinical interest. COMPARISON: US thyroid [id number] 12/10/2019 9:57 AM FINDINGS: Soft tissues: Ultrasound imaging of the left antecubital space is unremarkable. Other findings: In general, the patient is not cooperative. US/US soft tissue/extremity [id number] IMPRESSION: 1. No acute ultrasound finding as discussed above. 2. Consider routine x-rays performed body evaluation if clinically indicated.
--- NOTE | 2025-03-19 13:31 | P.PN_ITS ---
Subjective 2 Subjective: Patient is a 79-year-old female seen and examined at bedside on hospital rounds today. Patient laying in bed still having paranoia and refusal of care. A&O x 2. Moving all limbs equally and speaking clearly. Patient is refusing blood draws, did allow ultrasound to be completed where she had taken her IV out, no acute ultrasound findings. Family states that when the patient gets this way that it is usually caused by UTI. Patient is refusing straight cath, awaiting urine collection. Patient states that she has back pain and is only willing to take oral pain medications currently, refuses to have her IV replaced or IV pain medications given. Patient's family has been bringing POA paperwork up this evening and will give nursing their choices for SNF placement. Spoke with case management, on discharge planning, they will evaluate once given family's choice of facility. Hospitalist team grateful for the opportunity to consult in the medical management of this patient, continued inpatient/orthopedic management per attending . Most recent vital signs with blood pressure 121/78, pulse 118, respirations 20, temperature 98.4, O2 sat 91% on room air-patient has refused further darinel sign evaluations today, will continue to work with her on obtaining vitals and labs.. Vitals/I&O/Wt Last Vital Signs Temp 98.4 F 03/18/25 20:00 Pulse 118 H 03/18/25 20:00 Resp 20 H 03/18/25 20:00 BP 121/78 03/19/25 02:10 Pulse Ox 91 03/18/25 20:00 O2 Del Method Room Air 03/18/25 20:00 O2 Flow Rate 1 03/18/25 07:32 03/18/25 03/19/25 03/19/25 22:59 06:59 14:59 Intake Total 1000 / 1240 Balance 1000 / 1040 Weight last 48 hrs Weight 83.597 kg Weight 83.461 kg Physical Exam 2 Narrative: General: Alert and oriented x2, laying in bed, states low back pain. HEENT: Normocephalic, atraumatic, grossly unremarkable exam Respiratory: normal breathing Behavior: Agitated and uncooperative Extremities: Moving extremities without difficulty, no edema noted Urinary Catheter Management: Ruth: Cath Placed During This Visit: yes, but has since been removed by the nurse Reason for Continuing Indwelling Catheter: Decision to DC Catheter Urinary Catheter Date of Insertion: 03/16/25 Urinary Catheter Time of Insertion: 11:41 Date Urinary Catheter Removed: 03/18/25 Time Urinary Catheter Discontinued: 11:30 Data 03/18/25 06:03 03/18/25 06:03 A&P Assessment and plan 1. Lumbar stenosis with neurogenic claudication: Lumbar decompression 2. Primary hypertension: 3. Overweight: 4. Mild cognitive impairment with memory loss: 5. 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 Fibromyalgia: Plan: Lumbar stenosis with neurogenic claudication - S/p T10 through pelvis fusion 03/16 - Management per attending - Multi-modal pain control - Fall precautions - PT evaluation and recommendations, HH vs SNF - Hold any anticoagulation for 48hrs post operatively Post operative hypoxia improving Post operative hypotension, resolved - Continue IV fluids with LR 90mL/hr - S/p 1u pRBC's - Hemoglobin 8.80-<8.20 - Supplemental Oxygen - Wean supplemental oxygen as tolerated, currently on room air Primary hypertension - Currently B/p 113/72 - Hold blood pressure medication Overweight - BMI 32.5 - Lifestyle modifications/weight loss Cognitive impairment - Continue home medication Aricept 10mg Daily Hyperlipidemia - Continue Lipitor 40mg Daily Hypothyroidism - Continue home medication Levothyroxine 125mcg Fibromyalgia - Continue home medication Lyrica 100mg TID VTE PPX: SCD's avoid anticoagulation x 48hrs GI PPX: PPI Code Status: Full Code PDMP PDMP Reviewed: Last Reviewed 03/19/25 14:01 by Xena Tompkins, PRODUCTION LINE MECHANIC Attestations 2 Medical Necessity Statement*: Per attendng Coding Level of Care Code 98126 Diagnoses Lumbar stenosis with neurogenic claudication M48.062 Primary hypertension I10 Hypertension type: primary hypertension Overweight E66.3 Mild cognitive impairment with memory loss G31.84 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
[2025-03-19 15:49] VITALS: BP 127/76; RESP 16
[2025-03-19 20:00] VITALS: BP 128/67; PULSE 115; RESP 17; TEMP 36.8; O2SAT 94
[2025-03-20] VITALS (10 sets, daily range): BP systolic 122–167; BP diastolic 9–96; PULSE 90–116; RESP 16–20; TEMP 36.1–37.1; O2SAT 87–100
--- NOTE | 2025-03-20 02:23 | PC.NURSE ---
Pt oxygen level dipped to low 80's, put 2 L NC on and it came up to 90's. Pt stated she did not want to wear it after 10 minutes. Oxygen level stayed in 90's afterwards.
[2025-03-20] MEDS: metoprolol succinate ER (24 HR) 25 mg Tablet 12.5 MG PO (05:27)
--- NOTE | 2025-03-20 08:01 | P.PN_ITS ---
Subjective 2 Subjective: Patient is an 79-year-old female seen and examined at bedside on hospital rounds today. Patient is more cooperative with participating in her care today, allowed physical exam, is still confused but improving mentation over yesterday. Patient sitting up in bed stating low back pain and constipation. Ordered lactulose. She states fentanyl patch yesterday seems to be helping better with the pain today. Okay patient is unable to make complex decisions for herself, her spouse is her POA and brought in paperwork yesterday. Spouse chose [facility] for SNF, pending authorization. Patient had IV placed in right hand, pulled out again last night. In review of vital signs admission blood pressure 147/79, pulse 105, respirations 18, temperature 97.6, oxygen sat 91% on room air. I did note that I do not have repeat labs, patient has refused long labs, will attempt again today. Pending urinalysis as well pending Vitals/I&O/Wt Last Vital Signs Temp 98.1 F 03/20/25 07:41 Pulse 109 H 03/20/25 07:41 Resp 16 03/20/25 07:41 BP 145/85 03/20/25 07:41 Pulse Ox 94 03/20/25 07:41 O2 Del Method Room Air 03/20/25 07:41 O2 Flow Rate 1 03/18/25 07:32 Weight last 48 hrs Weight 84.277 kg Weight 83.597 kg Physical Exam 2 Narrative: General: Alert and oriented x2, laying in bed, states low back pain. HEENT: Normocephalic, atraumatic, grossly unremarkable exam Heart: Regular rate and rhythm, no murmurs Respiratory: normal breathing, clear RICKIE to auscultation. Behavior: More cooperative today, mild confusion Extremities: Moving extremities without difficulty, no edema noted Urinary Catheter Management: Ruth: Cath Placed During This Visit: yes, but has since been removed by the nurse Reason for Continuing Indwelling Catheter: Decision to DC Catheter Urinary Catheter Date of Insertion: 03/16/25 Urinary Catheter Time of Insertion: 11:41 Date Urinary Catheter Removed: 03/18/25 Time Urinary Catheter Discontinued: 11:30 Data 03/18/25 06:03 03/18/25 06:03 A&P Assessment and plan 1. Lumbar stenosis with neurogenic claudication: Lumbar decompression 2. Primary hypertension: 3. Overweight: 4. Mild cognitive impairment with memory loss: 5. 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 Fibromyalgia: Plan: Lumbar stenosis with neurogenic claudication - S/p T10 through pelvis fusion 03/16 - Management per attending - Multi-modal pain control - Fall precautions - PT evaluation and recommendations, SNF - VTE SCD's - Greatly appreciate case management discharge planning, pending authorization to [facility] per family request - Spouse is DPOA Post operative hypoxia improving Post operative hypotension, resolved - Continue IV fluids with LR 90mL/hr - S/p 1u pRBC's - Hemoglobin 8.80-<8.20 - Supplemental Oxygen - Wean supplemental oxygen as tolerated, currently on room air Primary hypertension - Currently B/p 147/79 - Hold blood pressure medication Overweight - BMI 32.5 - Lifestyle modifications/weight loss Cognitive impairment - Continue home medication Aricept 10mg Daily - Post-operatively increased confusion, improving - good pain control seems to help with cognition Hyperlipidemia - Continue Lipitor 40mg Daily Hypothyroidism - Continue home medication Levothyroxine 125mcg Fibromyalgia - Continue home medication Lyrica 100mg TID VTE PPX: SCD's avoid anticoagulation x 48hrs GI PPX: PPI Code Status: Full Code PDMP PDMP Reviewed: Last Reviewed 03/19/25 14:01 by Xena Tompkins, ZIGZAG TUNNEL ELASTIC OPERATOR Attestations 2 Medical Necessity Statement*: Per attendng Coding Level of Care Code 03100 Diagnoses Lumbar stenosis with neurogenic claudication M48.062 Primary hypertension I10 Hypertension type: primary hypertension Overweight E66.3 Mild cognitive impairment with memory loss G31.84 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
[2025-03-20] MEDS: lactulose oral liq 20 gm/30 mL UDC PO (10:34)
[2025-03-20] MEDS: CYCLOBENZAPRINE HCL 5 MG TABLET PO ×2 (13:44→20:29)
[2025-03-20] MEDS: HYDROcodone-acetaminophen 5-325 mg Tablet PO (13:44)
--- NOTE | 2025-03-20 14:10 | PM.PN ---
Subjective Subjective: Patient is resting in bed she is asleep when I walked in. After she woke patient was alert and oriented at this point try and get her to a halfway in [place] called [facility]. Vitals/I&O/Wt Last Vital Signs Temp 97.6 F 03/20/25 11:24 Pulse 105 H 03/20/25 11:24 Resp 18 03/20/25 11:24 BP 147/79 03/20/25 11:24 Pulse Ox 91 03/20/25 11:24 O2 Del Method Room Air 03/20/25 11:24 O2 Flow Rate 1 03/18/25 07:32 03/19/25 03/20/25 03/20/25 22:59 06:59 14:59 Intake Total 180 / 180 Balance 180 / 180 Weight last 48 hrs Weight 185 lb 12.8 oz Weight 184 lb 4.8 oz Physical Exam Narrative: Pain with walking gets muscle spasms. Urinary Catheter Management: Ruth: Cath Placed During This Visit: yes, but has since been removed by the nurse Reason for Continuing Indwelling Catheter: Decision to DC Catheter Urinary Catheter Date of Insertion: 03/16/25 Urinary Catheter Time of Insertion: 11:41 Date Urinary Catheter Removed: 03/18/25 Time Urinary Catheter Discontinued: 11:30 Data 03/18/25 06:03 03/18/25 06:03 A&P Assessment and plan 1. Status post lumbar spinal fusion: Status post lumbar fusion discharge planning to halfway [facility] with physical therapy Fentanyl patch for pain control seems to be working well. PDMP PDMP Reviewed: Not Reviewed Attestations Medical Necessity Statement*: Pain control Coding Level of Care Code Acute Code for Chg Fwd Diagnoses Status post lumbar spinal fusion Z98.1
[2025-03-20 14:45] LABS: Hematocrit 21.3 % (36-47); Hemoglobin 6.80 g/dL (11.27-16.99)
--- NOTE | 2025-03-20 15:41 | PC.NURSE ---
Xena notified patient had a large BM-full bed. Orders to hold lactulose
[2025-03-20 18:04] LABS: Glucose Urine UA Negative (Normal); Nitrate Urine Negative (Negative); Specific Gravity, Urine 1.020 (1.005-1.030)
[2025-03-20 18:09] LABS: Add Urine Microscopic? YES
[2025-03-20] MEDS: alum-mag-hydroxide-sime 30 mL UDC PO (20:29)
[2025-03-20] MEDS: HYDROmorphone 0.5 MG/0.5 ML INJ IVP (22:22)
[2025-03-21] VITALS: BP 158/92; PULSE 91; RESP 16; TEMP 37.1; O2SAT 100
[2025-03-21 04:00] VITALS: BP 164/97; PULSE 94; RESP 16; O2SAT 96
[2025-03-21] MEDS: metoprolol succinate ER (24 HR) 25 mg Tablet 12.5 MG PO (05:20)
[2025-03-21] MEDS: CYCLOBENZAPRINE HCL 5 MG TABLET PO ×2 (05:28→13:05)
[2025-03-21 06:12] LABS: Hematocrit 26.8 % (36-47); Hemoglobin 8.60 g/dL (11.27-16.99); Mean Corpuscular HGB Conc 32.1 g/dL (30-55); Mean Corpuscular Hemoglobin 29.0 pg (27-33); Mean Corpuscular Volume 90.2 fl (85-98); Nucleated Red Blood Cells % 0.6 %; Platelet Count 243 10^3/cmm (157-399); Red Blood Count 2.97 10^6/uL (3.85-5.65); White Blood Count 11.09 10^3/uL (3.29-11.43)
[2025-03-21 06:47] LABS: Alanine Aminotransferase 9 U/L (0-33); Albumin Level 2.9 g/dL (3.5-5.2); Alkaline Phosphatase 96 U/L (35-105); Anion Gap 14.7 (5-19); Aspartate Amino Transferase 22 U/L (0-32); Blood Urea Nitrogen 12 mg/dL (8-23); Calcium 8.8 mg/dL (8.5-10.5); Carbon Dioxide 25 mmol/L (22-29); Chloride 100 mmol/L (98-107); Globulin 3.2 g/dL (1.3-4.6); Glucose 90 mg/dL (65-115); Magnesium 1.3 mg/dL (1.7-2.3); Osmolality Calculated 281 mOsm/kg (285-295); Potassium 3.7 mmol/L (3.5-5.1); Sodium 136 mmol/L (136-145); Total Protein 6.1 g/dL (6.6-8.7)
[2025-03-21 07:45] VITALS: BP 158/81; PULSE 98; RESP 17; TEMP 36.5; O2SAT 93
[2025-03-21] MEDS: alum-mag-hydroxide-sime 30 mL UDC PO ×2 (09:22→13:03)
[2025-03-21] MEDS: magnesium sulfate premix 2 GM/50 ML PIGGYBACK IV (09:23)
[2025-03-21] MEDS: heparin 5,000 unit/mL INJ 1 mL 5000 UNIT SUBCUT ×2 (09:23→20:08)
[2025-03-21 09:40] LABS: Magnesium 1.4 mg/dL (1.7-2.3)
[2025-03-21 11:12] VITALS: BP 159/84; PULSE 99; RESP 16; TEMP 36.9; O2SAT 92
[2025-03-21 16:07] VITALS: BP 154/82; PULSE 93; RESP 16; TEMP 36.9; O2SAT 96
--- NOTE | 2025-03-21 19:34 | PC.NURSE ---
Dr. Rubin gave verbal orders to renew patients Hydrocodone 5-325 1-2 Tabs Q4H.
[2025-03-21 20:05] VITALS: BP 161/74
[2025-03-21] MEDS: HYDROcodone-acetaminophen 5-325 mg Tablet PO (20:07)
[2025-03-21] MEDS: lactulose oral liq 20 gm/30 mL UDC PO (20:48)
--- NOTE | 2025-03-21 20:49 | P.PN_ITS ---
Subjective 2 Subjective: Due to spinal surgery however it is getting relatively better The family was in the room. Patient were emotional about her condition. Thoroughly explained that she needs to be in a facility where she is taken care of well. No other complaints voiced by the patient Vitals/I&O/Wt Last Vital Signs Temp 98.4 F 03/21/25 16:07 Pulse 93 03/21/25 16:07 Resp 16 03/21/25 16:07 BP 161/74 03/21/25 20:05 Pulse Ox 96 03/21/25 16:07 O2 Del Method Room Air 03/21/25 16:07 O2 Flow Rate 1 03/18/25 07:32 03/21/25 03/21/25 03/21/25 06:59 14:59 22:59 Intake Total 850 / 2530 62 / 62 50 / 112 Output Total 215 / 715 500 / 500 100 / 600 Balance 635 / 1815 -438 / -438 -50 / -488 Weight last 48 hrs Weight 84.187 kg Weight 84.277 kg Physical Exam 2 Narrative: General: Alert and oriented to self and place, lying with mild discomfort due to back pain, however able to speak in full sentences HEENT: Normocephalic, atraumatic, grossly unremarkable exam Cardio: normal rate rhythm, normal S1-S2 without any murmurs, rubs, or gallops and JVD normal Respiratory: normal vascular breathing on auscultation with mild coarse crackles of secretions however no wheezes or stridor GI: Abdomen soft, nontender, nondistended, normoactive bowel sounds present all 4 quadrants, Neuro: Grossly normal Behavior: Appropriate and cooperative Extremities: Adequate palpable pulses, bilateral trace pedal edema Urinary Catheter Management: Ruth: Cath Placed During This Visit: yes, but has since been removed by the nurse Reason for Continuing Indwelling Catheter: Decision to DC Catheter Urinary Catheter Date of Insertion: 03/16/25 Urinary Catheter Time of Insertion: 11:41 Date Urinary Catheter Removed: 03/18/25 Time Urinary Catheter Discontinued: 11:30 Data 03/21/25 05:56 03/21/25 05:56 A&P Assessment and plan 1. Lumbar stenosis with neurogenic claudication: - S/p T10 through pelvis fusion 03/16 - Management per attending - Multi-modal pain control - Fall precautions - PT evaluation and recommendations, SNF? wholesale account manager on board - Greatly appreciate case management discharge planning, pending authorization to [facility] per family request - Spouse is DPO 2. Primary hypertension: Patient on home dose of hydrochlorothiazide metoprolol Mildly increased blood pressure secondary to high likely pain and discomfort secondary to back pain surgery Adequate analgesia If the blood pressure is not controlled then consider increasing antihypertensive medications Monitor blood pressure 3. Mild cognitive impairment with memory loss: Continue home medicine of donepezil 10 mg daily Emphasis on reorientation and calming techniques to be provided as inpatient Haldol as needed for agitation 4. 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 Fibromyalgia: Continue home medication pregabalin 100 mg 3 times daily Adequate analgesia as needed 6. Acute blood loss anemia: Secondary to s/p surgery, no obvious source of bleeding Continue to monitor CBC 7. Hypomagnesemia: 2 g magnesium correction provided Continue to monitor Plan: VTE PPX: Heparin twice daily GI PPX: PPI Code Status: Full Code PDMP PDMP Reviewed: Not Reviewed Attestations 2 Medical Necessity Statement*: Patient will stay in the hospital for further arrangement by the piano case and bench assembler for senior living versus shelter facility arrangement? Time Spent in Patient Care: 16 - 35 minutes (>than 50% of time sp ent in counselling and/or direct pt care on unit) . Other Attestations: Patient condition has been discussed at length with the patient/family, I have independently reviewed the chart labs imaging/diagnostics/EKG. the goals of care and code status with the patient/family/NOK/legal veterans service representative, and documented accordingly. I have reconciled the medications after confirmation/comorbidities/current clinical condition. The management has been done according to the current clinical condition with respect to patient goals of care and based on recommendations/guidelines. The patient/family has been informed about the current condition and further plan of care. Agreed with the plan of care and understood without any language barrier. Every effort was made to ensure accuracy of environmental web crawler. Any obvious errors or omissions should be clarified with the author of the document. 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
[2025-03-22] VITALS (8 sets, daily range): BP systolic 121–171; BP diastolic 64–85; PULSE 81–98; RESP 16–18; TEMP 36.3–36.9; O2SAT 91–96
[2025-03-22] MEDS: CYCLOBENZAPRINE HCL 5 MG TABLET PO ×2 (01:52→19:03)
[2025-03-22] MEDS: HYDROcodone-acetaminophen 5-325 mg Tablet PO ×4 (01:53→23:59)
[2025-03-22] MEDS: metoprolol succinate ER (24 HR) 25 mg Tablet 12.5 MG PO (04:29)
[2025-03-22 06:23] LABS: Hematocrit 26.5 % (36-47); Hemoglobin 8.10 g/dL (11.27-16.99); Mean Corpuscular HGB Conc 30.6 g/dL (30-55); Mean Corpuscular Hemoglobin 29.2 pg (27-33); Mean Corpuscular Volume 95.7 fl (85-98); Nucleated Red Blood Cells % 0.9 %; Platelet Count 207 10^3/cmm (157-399); Red Blood Count 2.77 10^6/uL (3.85-5.65); White Blood Count 8.13 10^3/uL (3.29-11.43)
[2025-03-22 06:40] LABS: Alanine Aminotransferase 11 U/L (0-33); Albumin Level 2.6 g/dL (3.5-5.2); Alkaline Phosphatase 85 U/L (35-105); Aspartate Amino Transferase 27 U/L (0-32); Blood Urea Nitrogen 11 mg/dL (8-23); Calcium 8.5 mg/dL (8.5-10.5); Carbon Dioxide 25 mmol/L (22-29); Chloride 101 mmol/L (98-107); Globulin 3.1 g/dL (1.3-4.6); Glucose 85 mg/dL (65-115); Osmolality Calculated 281 mOsm/kg (285-295); Sodium 136 mmol/L (136-145); Total Protein 5.7 g/dL (6.6-8.7)
[2025-03-22 06:48] LABS: Anion Gap 13.5 (5-19); Potassium 3.5 mmol/L (3.5-5.1)
[2025-03-22] MEDS: heparin 5,000 unit/mL INJ 1 mL 5000 UNIT SUBCUT ×2 (08:56→20:08)
[2025-03-22] MEDS: alum-mag-hydroxide-sime 30 mL UDC PO (19:10)
--- NOTE | 2025-03-22 20:13 | P.PN_ITS ---
Subjective 2 Subjective: Due to spinal surgery however it is getting relatively better Today the patient was relatively better than yesterday and her pain was bearable. I thoroughly explained that she needs to be in a facility where she is taken care of well. The patient was understanding and agreed with the plan of care Vitals/I&O/Wt Last Vital Signs Temp 97.4 F L 03/22/25 16:00 Pulse 86 03/22/25 16:00 Resp 18 03/22/25 16:00 BP 171/76 03/22/25 19:02 Pulse Ox 91 03/22/25 16:00 O2 Del Method Room Air 03/22/25 16:00 O2 Flow Rate 1 03/18/25 07:32 03/22/25 03/22/25 03/22/25 06:59 14:59 22:59 Intake Total 240 / 1331.5 1000 / 1000 Output Total 200 / 800 Balance 40 / 531.5 1000 / 1000 Weight last 48 hrs Weight 84.187 kg Physical Exam 2 Narrative: General: Alert and oriented to self and place, lying with mild discomfort due to back pain, however able to speak in full sentences HEENT: Normocephalic, atraumatic, grossly unremarkable exam Cardio: normal rate rhythm, normal S1-S2 without any murmurs, rubs, or gallops and JVD normal Respiratory: normal vascular breathing on auscultation with mild coarse crackles of secretions however no wheezes or stridor GI: Abdomen soft, nontender, nondistended, normoactive bowel sounds present all 4 quadrants, Neuro: Grossly normal Behavior: Appropriate and cooperative Extremities: Adequate palpable pulses, bilateral trace pedal edema Urinary Catheter Management: Ruth: Cath Placed During This Visit: yes, but has since been removed by the nurse Reason for Continuing Indwelling Catheter: Decision to DC Catheter Urinary Catheter Date of Insertion: 03/16/25 Urinary Catheter Time of Insertion: 11:41 Date Urinary Catheter Removed: 03/18/25 Time Urinary Catheter Discontinued: 11:30 Data 03/22/25 06:02 03/22/25 06:02 A&P Assessment and plan 1. Lumbar stenosis with neurogenic claudication: - S/p T10 through pelvis fusion 03/16 - Management per attending - Multi-modal pain control - Fall precautions - PT evaluation and recommendations, SNF? sales promotion manager on board - Greatly appreciate case management discharge planning, pending authorization to [facility] per family request - Spouse is DPO 2. Primary hypertension: Patient on home dose of hydrochlorothiazide metoprolol Increase the dose of hydrochlorothiazide to 50 mg daily And continue metoprolol 12.5 mg daily Adequate analgesia to be provided in case the patient blood pressure is also reduced due to pain Titrate antihypertensives after 24 to 48 hours of readings accordingly Monitor blood pressure 3. Mild cognitive impairment with memory loss: Continue home medicine of donepezil 10 mg daily Emphasis on reorientation and calming techniques to be provided as inpatient Haldol as needed for agitation 4. 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 Fibromyalgia: Continue home medication pregabalin 100 mg 3 times daily Adequate analgesia as needed 6. Acute blood loss anemia: Secondary to s/p surgery, no obvious source of bleeding Continue to monitor CBC 7. Hypomagnesemia: 2 g magnesium correction provided Continue to monitor Plan: VTE PPX: Heparin twice daily GI PPX: PPI Code Status: Full Code PDMP PDMP Reviewed: Not Reviewed Attestations 2 Medical Necessity Statement*: Patient will stay in the hospital for further arrangement by the gearcase assembler for detention versus residential facility arrangement? Time Spent in Patient Care: 16 - 35 minutes (>than 50% of time sp ent in counselling and/or direct pt care on unit) . Other Attestations: Patient condition has been discussed at length with the patient/family, I have independently reviewed the chart labs imaging/diagnostics/EKG. the goals of care and code status with the patient/family/NOK/legal telephone service representative, and documented accordingly. I have reconciled the medications after confirmation/comorbidities/current clinical condition. The management has been done according to the current clinical condition with respect to patient goals of care and based on recommendations/guidelines. The patient/family has been informed about the current condition and further plan of care. Agreed with the plan of care and understood without any language barrier. Every effort was made to ensure accuracy of knife glazer. Any obvious errors or omissions should be clarified with the author of the document. 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
[2025-03-23] VITALS: BP 152/78; PULSE 80; RESP 16; TEMP 36.6; O2SAT 94
[2025-03-23 04:00] VITALS: BP 154/77; PULSE 94; RESP 16; TEMP 36.4; O2SAT 93
[2025-03-23 04:30] VITALS: BP 155/87
[2025-03-23] MEDS: metoprolol succinate ER (24 HR) 25 mg Tablet 12.5 MG PO (04:31)
[2025-03-23 06:07] LABS: Hematocrit 26.7 % (36-47); Hemoglobin 8.40 g/dL (11.27-16.99); Mean Corpuscular HGB Conc 31.5 g/dL (30-55); Mean Corpuscular Hemoglobin 28.2 pg (27-33); Mean Corpuscular Volume 89.6 fl (85-98); Nucleated Red Blood Cells % 0.9 %; Platelet Count 280 10^3/cmm (157-399); Red Blood Count 2.98 10^6/uL (3.85-5.65); White Blood Count 8.23 10^3/uL (3.29-11.43)
[2025-03-23 06:26] LABS: Alanine Aminotransferase 10 U/L (0-33); Albumin Level 2.8 g/dL (3.5-5.2); Alkaline Phosphatase 88 U/L (35-105); Anion Gap 12.4 (5-19); Aspartate Amino Transferase 21 U/L (0-32); Blood Urea Nitrogen 9 mg/dL (8-23); Calcium 8.5 mg/dL (8.5-10.5); Carbon Dioxide 28 mmol/L (22-29); Chloride 98 mmol/L (98-107); Globulin 2.9 g/dL (1.3-4.6); Glucose 86 mg/dL (65-115); Magnesium 1.6 mg/dL (1.7-2.3); Osmolality Calculated 278 mOsm/kg (285-295); Potassium 3.4 mmol/L (3.5-5.1); Sodium 135 mmol/L (136-145); Total Protein 5.7 g/dL (6.6-8.7)
[2025-03-23 08:05] VITALS: BP 149/79; PULSE 84; RESP 16; TEMP 36.9; O2SAT 93
--- NOTE | 2025-03-23 09:00 | PM.DCS ---
Discharge Providers Date of Admission: 03/16/25 18:31 Date of Discharge: March 23, 2025 Attending Provider at Admission: Brendon Rubin DO Attending Provider at Discharge: Brendon Rubin DO Primary Care Provider: Jackie Ferrell MD Diagnoses at Discharge Discharge Diagnosis 1. Lumbar stenosis with neurogenic claudication: 2. Primary hypertension: 3. Mild cognitive impairment with memory loss: 4. 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 Fibromyalgia: 6. Acute blood loss anemia: 7. Hypomagnesemia: Reason for Visit Reason for Visit: M41.50 Brief History: As per the previous notes and the admitting physician: Joana Spaulding is a 79 year old female past medical history of osteoarthritis, Raynaud's disease, depression, hypothyroidism, hypertension, fibromyalgia, GERD, hyperlipidemia, cataracts, CPPD, degenerative scoliosis, and lumbar stenosis with neurogenic claudication who underwent [id number] fusion with attending Orthopedic Surgeon earlier today. Hospitalist team was contacted for medical management. Vital signs: Blood pressure 93/53, HR 73, Resp 18, Temp 97.4F, O2 sat 100% on 4L/min nasal cannula. Labs pending. Patient has had a difficult time waking up from anesthesia. Blood pressure soft and needing oxygen supplementation currently. VBG and H&H pending currently. BiPap ordered with concern for hypoventilation. Reviewed patient with . Patient will go to ICU for close monitoring and may be able to transfer to the floor once she is more stable. Hospital Course Hospital Course During patient hospital stay she underwent T10 to pelvis infusion on 03/16 by the spine surgeon. Adequate analgesia was provided. OT PT was also taken on board. Patient had primary hypertension that was more or less related to her pain as well therefore her medications were adjusted accordingly. She remained stable throughout her hospital stay. He had mild anemia without any significant blood loss or hemodynamic instability which was more or less related to her surgery. She was managed according to her diagnostic parameters. All the comorbidities were also managed inpatient accordingly and medical management was provided. After discussing with the patient's family [facility]. Medications were reconciled after confirmation and according to patient comorbidities and appropriate follow-ups and referrals were provided at the time of discharge. Patient condition has been discussed at length with the patient/family, I have independently reviewed the chart labs imaging/diagnostics/EKG. the goals of care and code status with the patient/family/NOK/legal patient portal representative, and documented accordingly. The management has been done according to the current clinical condition with respect to patient goals of care and based on recommendations/guidelines. The patient/family has been informed about the current condition and further plan of care. Agreed with the plan of care and understood without any language barrier. Every effort was made to ensure accuracy of internal sales. Any obvious errors or omissions should be clarified with the author of the document. Physical Exam Narrative: General: Alert and oriented to self and place, lying with mild discomfort due to back pain, however able to speak in full sentences HEENT: Normocephalic, atraumatic, grossly unremarkable exam Cardio: normal rate rhythm, normal S1-S2 without any murmurs, rubs, or gallops and JVD normal Respiratory: normal vascular breathing on auscultation with mild coarse crackles of secretions however no wheezes or stridor GI: Abdomen soft, nontender, nondistended, normoactive bowel sounds present all 4 quadrants, Neuro: Grossly normal Behavior: Appropriate and cooperative Extremities: Adequate palpable pulses, bilateral trace pedal edema Urinary Catheter Management: Ruth: Cath Placed During This Visit: yes, but has since been removed by the nurse Reason for Continuing Indwelling Catheter: Decision to DC Catheter Urinary Catheter Date of Insertion: 03/16/25 Urinary Catheter Time of Insertion: 11:41 Date Urinary Catheter Removed: 03/18/25 Time Urinary Catheter Discontinued: 11:30 Discharge Data Studies Completed and Pending Completed Studies During Hospitalization Category Date Time Status XR lumbar spine 2-3V* [id number] Routine Exams 03/17/25 10:34 Completed US soft tissue/extremity [id number] Routine Ultrasound 03/19/25 09:47 Completed Pending at discharge Category Date Time Status CBC Auto Diff [Complete Blood Count w/Auto] AM LABS Lab 03/24/25 04:00 Ordered CMP [Comprehensive Metabolic Panel] AM LABS Lab 03/24/25 04:00 Ordered Magnesium AM LABS Lab 03/24/25 04:00 Ordered VBG [Venous Blood Gas] Routine Lab 03/16/25 17:45 Results Radiology Impressions Lumbar Spine X-Ray 03/17/25 10:34 Impression: Posterior thoracolumbar sacral fusion. Soft Tissue Ultrasound 03/19/25 09:47 IMPRESSION: 1. No acute ultrasound finding as discussed above. 2. Consider routine x-rays performed body evaluation if clinically indicated. Laboratory Results WBC 8.23 10^3/uL (3.29-11.43) 03/23/25 05:44 RBC 2.98 10^6/uL (3.85-5.65) L 03/23/25 05:44 Hgb 8.40 g/dL (11.27-16.99) L 03/23/25 05:44 Hct 26.7 % (36-47) L 03/23/25 05:44 MCV 89.6 fl (85-98) D 03/23/25 05:44 MCH 28.2 pg (27-33) 03/23/25 05:44 MCHC 31.5 g/dL (30-55) 03/23/25 05:44 RDW 15.4 % (12.1-15.1) H 03/23/25 05:44 Plt Count 280 10^3/cmm (157-399) D 03/23/25 05:44 MPV 11.2 fL (7.4-10.4) H 03/23/25 05:44 Neut % (Auto) 63.6 % 03/23/25 05:44 Lymph % (Auto) 17.3 % 03/23/25 05:44 [place] % (Auto) 12.9 % 03/23/25 05:44 Eos % (Auto) 4.4 % 03/23/25 05:44 Baso % (Auto) 0.5 % 03/23/25 05:44 Neut # (Auto) 5.24 10^3/uL (1.8-7.7) 03/23/25 05:44 Lymph # (Auto) 1.4 10^3/uL (0.8-4.8) 03/23/25 05:44 [place] # (Auto) 1.1 10^3/uL (0.2-0.9) H 03/23/25 05:44 Eos # (Auto) 0.4 10^3/uL (0.0-0.8) 03/23/25 05:44 Baso # (Auto) 0.0 10^3/uL (0.0-0.1) 03/23/25 05:44 Nucleated RBC % (auto) 0.9 % 03/23/25 05:44 Nucleated RBCs # 0.1 /100WBC 03/23/25 05:44 Specimen Type Venous 03/16/25 22:15 Sample Site vein 03/16/25 22:15 Steven Test Pos 03/16/25 22:15 VBG pH 7.27 (7.32-7.42) L 03/16/25 22:15 VBG pCO2 43.3 mmHg (41-51) 03/16/25 22:15 VBG pO2 45.5 mmHg (25-40) H 03/16/25 22:15 VBG HCO3 19.8 mmol/L (24-28) L 03/16/25 22:15 VBG Base Excess -6.9 mmol/L (-3.0-3.0) L 03/16/25 22:15 VBG Hematocrit 32.8 % (37-47) L 03/16/25 22:15 O2 Delivery Device Nc 03/16/25 22:15 O2 Liters/Min 2.0 % 03/16/25 22:15 FiO2 28.0 % 03/16/25 22:15 Nitroglycerin Supervisor ID Bd 03/16/25 22:15 Sodium 135 mmol/L (136-145) L 03/23/25 05:44 Potassium 3.4 mmol/L (3.5-5.1) L 03/23/25 05:44 Chloride 98 mmol/L (98-107) 03/23/25 05:44 Carbon Dioxide 28 mmol/L (22-29) 03/23/25 05:44 Anion Gap 12.4 (5-19) 03/23/25 05:44 BUN 9 mg/dL (8-23) 03/23/25 05:44 Creatinine 0.8 mg/dL (0.5-0.9) 03/23/25 05:44 GFR Calculation Not Reportable 03/23/25 05:44 Glucose 86 mg/dL (65-115) 03/23/25 05:44 Calculated Osmolality 278 mOsm/kg (285-295) L 03/23/25 05:44 Calcium 8.5 mg/dL (8.5-10.5) 03/23/25 05:44 Phosphorus 3.1 mg/dL (2.5-4.5) 03/16/25 22:19 Magnesium 1.6 mg/dL (1.7-2.3) L 03/23/25 05:44 Total Bilirubin 0.3 mg/dL (0.15-1.2) 03/23/25 05:44 AST 21 U/L (0-32) 03/23/25 05:44 ALT 10 U/L (0-33) 03/23/25 05:44 Alkaline Phosphatase 88 U/L (35-105) 03/23/25 05:44 Total Protein 5.7 g/dL (6.6-8.7) L 03/23/25 05:44 Albumin 2.8 g/dL (3.5-5.2) L 03/23/25 05:44 Globulin 2.9 g/dL (1.3-4.6) 03/23/25 05:44 Urine Color Yellow (Yellow) 03/20/25 17:50 Urine Appearance Clear (CLEAR) 03/20/25 17:50 Urine pH 5.5 (5-7) 03/20/25 17:50 Ur Specific [place] 1.020 (1.005-1.030) 03/20/25 17:50 Urine Protein Trace (Negative) A 03/20/25 17:50 Urine Glucose (UA) Negative (Normal) 03/20/25 17:50 Urine Ketones Trace (Negative) 03/20/25 17:50 Urine Blood Negative (Negative) 03/20/25 17:50 Urine Nitrate Negative (Negative) 03/20/25 17:50 Urine Bilirubin Negative (Negative) 03/20/25 17:50 Urine Urobilinogen 0.2 mg/dL (Negative) 03/20/25 17:50 Ur Leukocyte Esterase Negative (Negative) 03/20/25 17:50 Urine RBC 0-2 /hpf (0-2) 03/20/25 17:50 Urine WBC 0-5 /hpf (0-5) 03/20/25 17:50 Ur Squamous Epith Cells 0-5 /hpf (0-5) 03/20/25 17:50 Amorphous Sediment Not Reportable 03/20/25 17:50 Urine Bacteria None seen /hpf (NONE) 03/20/25 17:50 Hyaline Casts 2.46 /lpf 03/20/25 17:50 Blood Type O Positive 03/20/25 18:13 Rho(D) Type Rh positive 12/21/25 18:13 Antibody Screen Negative 03/20/25 18:13 Crossmatch See Detail 03/20/25 18:13 Vitals Last Vital Signs Temp 98.4 F 03/23/25 08:05 Pulse 84 03/23/25 08:05 Resp 16 03/23/25 08:05 BP 149/79 03/23/25 08:05 Pulse Ox 93 03/23/25 08:05 O2 Del Method Room Air 03/23/25 08:05 O2 Flow Rate 1 03/18/25 07:32 Discharge Plan Discharge Patient Disposition: Xfer SNF Condition: Stable Prescriptions: New hydrocodone-acetaminophen 5-325 mg Tablet 1 - 2 tab PO Q4H PRN (Reason: Moderate To Severe Pain) 5 Days Qty: 15 0RF alum-mag hydroxide-simeth [Mag-Al Plus] 200-200-20 mg/5 mL Suspension 30 ml PO Q4H PRN (Reason: Indigestion) 30 Days Qty: 3000 0RF Continued atorvastatin 40 mg tablet 40 mg PO DAILY 90 Days Qty: 90 3RF dexlansoprazole 30 mg capsule,biphase delayed releas 30 mg PO BID 90 Days Qty: 180 3RF metoprolol succinate [Toprol XL] 25 mg tablet extended release 24 hr 25 mg PO DAILY 90 Days Qty: 90 2RF pregabalin [Lyrica] 100 mg capsule 100 mg PO TID 30 Days Qty: 90 3RF (DME) ROMANAATOR WALKER See Rx Instructions .Route .MEDSUPPLY Qty: 1 0RF Rx Instructions: As directed// LENGTH OF NEED : 6MONTHS levothyroxine 125 mcg tablet 125 mcg PO DAILY Qty: 90 0RF donepezil 10 mg tablet 10 mg PO DAILY Rx Instructions: TAKE 1 TABLET BY MOUTH DAILY acetaminophen 500 mg Tablet 1,000 mg PO Q8H Qty: 0 0RF cyclobenzaprine 5 mg tablet 5 mg PO 3XD PRN (Reason: Spasms) Rx Instructions: TAKE 1 TABLET BY MOUTH 3 TIMES A DAY NEEDED FOR MUSCLE SPASM Changed celecoxib [Celebrex] 50 mg capsule 50 mg PO BID PRN (Reason: pain) 90 Days Qty: 180 2RF Rx Instructions: WITH FOOD hydrochlorothiazide 25 mg tablet 50 mg PO DAILY Qty: 90 2RF Rx Instructions: TAKE 1 TABLET BY MOUTH DAILY Discontinued famotidine 20 mg tablet 20 mg PO BID 90 Days Qty: 180 2RF Rx Instructions: TAKE 1 TABLET BY MOUTH TWICE A DAY FOR 90 DAYS 911 Emergency Services Dispatcher OK for DC: Orthopedics Discharge Order = DC NOW: Discharge Order (Routine); Ordered 03/23/25 Ordered By: Brendon Rubin Referrals: [facility] [Outside] Brendon Rubin, [Physician, Orthopedics] - 2 weeks Referral Note: Post T10 infusion surgery follow-up Discharge Diet: Advance as tolerated Discharge Activity: Limit activity as instructed Patient Instructions: Acute Wound Care (DC), Opioid Safety, Post Anesthesia Care, Patient Portal & [place] Instructions Activity Restrictions/Additional Instructions: Thank you for choosing [facility] for your care! The following is a list of instructions, from your provider, to follow upon your discharge to ensure you have the optimal recovery from your recent injury or surgery. Follow-up care is a mccoy part of your treatment and safety. Be sure to make and go to all appointments, and call your doctor if you are having problems. If you do not already have a follow-up appointment made, call Dr. Rubin's office in the next 1-3 days to make follow up appointment for 1 weeks at [phone]. It is also a good idea to know your test results and keep a list of the medicines you take. Medications will be prescribed for you at your provider?s discretion. These medications are to be used as instructed;if they are taken more often that prescribed they will not be refilled early and in most cases will not be refilled at all. > When a refill is needed,you should contact our office 2-3 business days beforeyour prescription runs out. Medications will NOTbe refilled by environmental studies faculty member providers after hours! > Many pain medications contain Tylenol (Acetaminophen). Do not consume more than 4,000 mg of Tylenol per day in total with any combination of medications. > Pain medications can cause constipation. Please use an over the counter stool softener as directed, while taking pain medications. Consult your local pharmacist with questions or recommendations on stool softeners. If constipation persists, contact our office or your primary care provider. > While under our care,you are not to receive pain medications or other controlled substances from any other provider unless our office is notified and approves. Any attempts to do so will result in refusal to prescribe any further pain medications and possible dismissal from our practice. ? Follow-up in 1 week in clinic. Keep dressing on ? Walking is essential for the healing process after surgery. We would like you to slowly advance your walking. This should be done on relatively flat clear ground (inside or out) or can be done on a treadmill. Remember this goal does not have to happen all at once, slowly increase your distance and duration. This can be broken into more more than one walk per day as tolerated. Patients who walk as directed after surgery rarely require Physical Therapy. In the unlikely event this issue arises your provider will direct hospital staff to make the appropriate arrangements. ? No lifting over 5 pounds {a gallon of milk) or bending/twisting until further notice. Each of these activities places an unnecessary amount of stress onto the body and can impede the delicate healing process. > Instead of bending at the waist, keep your back straight and bend at the knees. > Instead of twisting your torso, keep your back straight and turn your entire body with your feet. ? You may sleep in any position which makes you comfortable.Many patients find comfort sleeping in a reclining chair. It is not abnormal to have difficulty sleeping for the first several weeks following your surgery. We recommend trying Benadryl or Tylenol PM as directed to help with your sleeping difficulties. Both medications are over the counter and available without prescription. ? NO SMOKING!!!Smoking dramatically increases the probability of developing postoperative wound infections. ? Common complaints after lumbar and/or thoracic spine surgery include, but are not limited to: numbness and/or tingling in the legs, pain around the incision and surrounding tissues, muscle spasms, or stiffness of the middle to low back. Contact our office if these symptoms persist or if an acute change occurs. ? No driving for the first 3-5 days, and not while taking narcotics until seen at your follow-up appointment and cleared.There are no restrictions for riding on short trips, however if you take a longer trip, arrangements should be made to make regular stops to get out of the vehicle and stretch . ? Swelling is an unfortunate event that will take place with any surgery and is the primary source of your postoperative discomfort. While walking and regular approved activities helps control inflammation, there are additional steps you can take to minimize swelling. > Place ice over the surgical site and surrounding tissue for twenty minutes, followed by applying a low/medium heat (heating pad) for an additional twenty minutes every 1-2 hours as needed for pain relief. > You may use of over the counter anti-inflammatory medications (Ibuprofen, Motrin, Aleve, Advil, etc) as directed on the package label. These types of medicines will significantly reduce the amount of discomfort you experience after surgery from swelling. It should be noted that if you have an allergy to any of these medications, or a history of ulcers or kidney disease you should consult your primary care provider prior to starting these medications. Discharge Attestations Time Spent in Discharge Care*: greater than 30 min Specific Discharge Activities: educating patient, educating and/or supporting family/caregiver, discussing with pcp/other providers, discussing with comp field case manager/social workers/dc planners, documenting/other paperwork and evaluating patient/reviewing data Status at Discharge: Cognitive status at discharge: mildly impaired cognition, Behavioral status at discharge: cooperative, Functional status at discharge: other assisted ambulation, Overall status at discharge: patient has a new baseline Quality Metrics Clinical Quality Measures [ No reported AMI, CVA or VTE this stay] Coding Level of Care Code Acute Code for Chg Fwd Diagnoses Lumbar stenosis with neurogenic claudication M48.062 Primary hypertension I10 Hypertension type: primary hypertension Mild cognitive impairment with memory loss G31.84 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
--- NOTE | 2025-03-23 09:04 | P.DS_ITS ---
Discharge Providers Date of Admission: 03/16/25 18:31 Date of Discharge: March 23, 2025 Attending Provider at Admission: Brendon Rubin DO Attending Provider at Discharge: Brendon Rubin DO Primary Care Provider: Jackie Ferrell MD Diagnoses at Discharge Discharge Diagnosis 1. Lumbar stenosis with neurogenic claudication: 2. Primary hypertension: 3. Mild cognitive impairment with memory loss: 4. 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 Fibromyalgia: 6. Acute blood loss anemia: 7. Hypomagnesemia: Reason for Visit Reason for Visit: M41.50 Physical Exam Narrative: Patient feeling much better today Has been up walking with physical therapy. Patient stated she will be [facility] today. Urinary Catheter Management: Ruth: Cath Placed During This Visit: yes, but has since been removed by the nurse Reason for Continuing Indwelling Catheter: Decision to DC Catheter Urinary Catheter Date of Insertion: 03/16/25 Urinary Catheter Time of Insertion: 11:41 Date Urinary Catheter Removed: 03/18/25 Time Urinary Catheter Discontinued: 11:30 Discharge Data Studies Completed and Pending Completed Studies During Hospitalization Category Date Time Status XR lumbar spine 2-3V* 12492 Routine Exams 03/17/25 10:34 Completed US soft tissue/extremity 62838 Routine Ultrasound 03/19/25 09:47 Completed Pending at discharge Category Date Time Status CBC Auto Diff [Complete Blood Count w/Auto] AM LABS Lab 03/24/25 04:00 Ordered CMP [Comprehensive Metabolic Panel] AM LABS Lab 03/24/25 04:00 Ordered Magnesium AM LABS Lab 03/24/25 04:00 Ordered VBG [Venous Blood Gas] Routine Lab 03/16/25 17:45 Results Radiology Impressions Lumbar Spine X-Ray 03/17/25 10:34 Impression: Posterior thoracolumbar sacral fusion. Soft Tissue Ultrasound 03/19/25 09:47 IMPRESSION: 1. No acute ultrasound finding as discussed above. 2. Consider routine x-rays performed body evaluation if clinically indicated. Laboratory Results WBC 8.23 10^3/uL (3.29-11.43) 03/23/25 05:44 RBC 2.98 10^6/uL (3.85-5.65) L 03/23/25 05:44 Hgb 8.40 g/dL (11.27-16.99) L 03/23/25 05:44 Hct 26.7 % (36-47) L 03/23/25 05:44 MCV 89.6 fl (85-98) D 03/23/25 05:44 MCH 28.2 pg (27-33) 03/23/25 05:44 MCHC 31.5 g/dL (30-55) 03/23/25 05:44 RDW 15.4 % (12.1-15.1) H 03/23/25 05:44 Plt Count 280 10^3/cmm (157-399) D 03/23/25 05:44 MPV 11.2 fL (7.4-10.4) H 03/23/25 05:44 Neut % (Auto) 63.6 % 03/23/25 05:44 Lymph % (Auto) 17.3 % 03/23/25 05:44 [place] % (Auto) 12.9 % 03/23/25 05:44 Eos % (Auto) 4.4 % 03/23/25 05:44 Baso % (Auto) 0.5 % 03/23/25 05:44 Neut # (Auto) 5.24 10^3/uL (1.8-7.7) 03/23/25 05:44 Lymph # (Auto) 1.4 10^3/uL (0.8-4.8) 03/23/25 05:44 [place] # (Auto) 1.1 10^3/uL (0.2-0.9) H 03/23/25 05:44 Eos # (Auto) 0.4 10^3/uL (0.0-0.8) 03/23/25 05:44 Baso # (Auto) 0.0 10^3/uL (0.0-0.1) 03/23/25 05:44 Nucleated RBC % (auto) 0.9 % 03/23/25 05:44 Nucleated RBCs # 0.1 /100WBC 03/23/25 05:44 Specimen Type Venous 03/16/25 22:15 Sample Site vein 03/16/25 22:15 Steven Test Pos 03/16/25 22:15 VBG pH 7.27 (7.32-7.42) L 03/16/25 22:15 VBG pCO2 43.3 mmHg (41-51) 03/16/25 22:15 VBG pO2 45.5 mmHg (25-40) H 03/16/25 22:15 VBG HCO3 19.8 mmol/L (24-28) L 03/16/25 22:15 VBG Base Excess -6.9 mmol/L (-3.0-3.0) L 03/16/25 22:15 VBG Hematocrit 32.8 % (37-47) L 03/16/25 22:15 O2 Delivery Device Nc 03/16/25 22:15 O2 Liters/Min 2.0 % 03/16/25 22:15 FiO2 28.0 % 03/16/25 22:15 Business Mail Entry Clerk ID Bd 03/16/25 22:15 Sodium 135 mmol/L (136-145) L 03/23/25 05:44 Potassium 3.4 mmol/L (3.5-5.1) L 03/23/25 05:44 Chloride 98 mmol/L (98-107) 03/23/25 05:44 Carbon Dioxide 28 mmol/L (22-29) 03/23/25 05:44 Anion Gap 12.4 (5-19) 03/23/25 05:44 BUN 9 mg/dL (8-23) 03/23/25 05:44 Creatinine 0.8 mg/dL (0.5-0.9) 03/23/25 05:44 GFR Calculation Not Reportable 03/23/25 05:44 Glucose 86 mg/dL (65-115) 03/23/25 05:44 Calculated Osmolality 278 mOsm/kg (285-295) L 03/23/25 05:44 Calcium 8.5 mg/dL (8.5-10.5) 03/23/25 05:44 Phosphorus 3.1 mg/dL (2.5-4.5) 03/16/25 22:19 Magnesium 1.6 mg/dL (1.7-2.3) L 03/23/25 05:44 Total Bilirubin 0.3 mg/dL (0.15-1.2) 03/23/25 05:44 AST 21 U/L (0-32) 03/23/25 05:44 ALT 10 U/L (0-33) 03/23/25 05:44 Alkaline Phosphatase 88 U/L (35-105) 03/23/25 05:44 Total Protein 5.7 g/dL (6.6-8.7) L 03/23/25 05:44 Albumin 2.8 g/dL (3.5-5.2) L 03/23/25 05:44 Globulin 2.9 g/dL (1.3-4.6) 03/23/25 05:44 Urine Color Yellow (Yellow) 03/20/25 17:50 Urine Appearance Clear (CLEAR) 03/20/25 17:50 Urine pH 5.5 (5-7) 03/20/25 17:50 Ur Specific [place] 1.020 (1.005-1.030) 03/20/25 17:50 Urine Protein Trace (Negative) A 03/20/25 17:50 Urine Glucose (UA) Negative (Normal) 03/20/25 17:50 Urine Ketones Trace (Negative) 03/20/25 17:50 Urine Blood Negative (Negative) 03/20/25 17:50 Urine Nitrate Negative (Negative) 03/20/25 17:50 Urine Bilirubin Negative (Negative) 03/20/25 17:50 Urine Urobilinogen 0.2 mg/dL (Negative) 03/20/25 17:50 Ur Leukocyte Esterase Negative (Negative) 03/20/25 17:50 Urine RBC 0-2 /hpf (0-2) 03/20/25 17:50 Urine WBC 0-5 /hpf (0-5) 03/20/25 17:50 Ur Squamous Epith Cells 0-5 /hpf (0-5) 03/20/25 17:50 Amorphous Sediment Not Reportable 03/20/25 17:50 Urine Bacteria None seen /hpf (NONE) 03/20/25 17:50 Hyaline Casts 2.46 /lpf 03/20/25 17:50 Blood Type O Positive 03/20/25 18:13 Rho(D) Type Rh positive 03/20/25 18:13 Antibody Screen Negative 03/20/25 18:13 Crossmatch See Detail 03/20/25 18:13 Vitals Last Vital Signs Temp 98.4 F 03/23/25 08:05 Pulse 84 03/23/25 08:05 Resp 16 03/23/25 08:05 BP 149/79 03/23/25 08:05 Pulse Ox 93 03/23/25 08:05 O2 Del Method Room Air 03/23/25 08:05 O2 Flow Rate 1 03/18/25 07:32 Discharge Plan Discharge Patient Disposition: Xfer SNF Condition: Stable Prescriptions: New hydrocodone-acetaminophen 5-325 mg Tablet 1 - 2 tab PO Q4H PRN (Reason: Moderate To Severe Pain) 5 Days Qty: 15 0RF alum-mag hydroxide-simeth [Mag-Al Plus] 200-200-20 mg/5 mL Suspension 30 ml PO Q4H PRN (Reason: Indigestion) 30 Days Qty: 3000 0RF Continued atorvastatin 40 mg tablet 40 mg PO DAILY 90 Days Qty: 90 3RF dexlansoprazole 30 mg capsule,biphase delayed releas 30 mg PO BID 90 Days Qty: 180 3RF hydrochlorothiazide 25 mg tablet 25 mg PO DAILY Qty: 90 2RF Rx Instructions: TAKE 1 TABLET BY MOUTH DAILY metoprolol succinate [Toprol XL] 25 mg tablet extended release 24 hr 25 mg PO DAILY 90 Days Qty: 90 2RF pregabalin [Lyrica] 100 mg capsule 100 mg PO TID 30 Days Qty: 90 3RF (DME) ROLLATOR WALKER See Rx Instructions .Route .MEDSUPPLY Qty: 1 0RF Rx Instructions: As directed// LENGTH OF NEED : 6MONTHS levothyroxine 125 mcg tablet 125 mcg PO DAILY Qty: 90 0RF donepezil 10 mg tablet 10 mg PO DAILY Rx Instructions: TAKE 1 TABLET BY MOUTH DAILY acetaminophen 500 mg Tablet 1,000 mg PO Q8H Qty: 0 0RF cyclobenzaprine 5 mg tablet 5 mg PO 3XD PRN (Reason: Spasms) Rx Instructions: TAKE 1 TABLET BY MOUTH 3 TIMES A DAY NEEDED FOR MUSCLE SPASM Changed celecoxib [Celebrex] 50 mg capsule 50 mg PO BID PRN (Reason: pain) 90 Days Qty: 180 2RF Rx Instructions: WITH FOOD Discontinued famotidine 20 mg tablet 20 mg PO BID 90 Days Qty: 180 2RF Rx Instructions: TAKE 1 TABLET BY MOUTH TWICE A DAY FOR 90 DAYS Child Custody Evaluator OK for DC: Orthopedics Discharge Order = DC NOW: Discharge Order (Routine); Ordered 03/23/25 Ordered By: Brendon Rubin Referrals: [facility] [Outside] Discharge Diet: Advance as tolerated Discharge Activity: Limit activity as instructed Patient Instructions: Acute Wound Care (DC), Opioid Safety, Post Anesthesia Care, Patient Portal & [place] Instructions Activity Restrictions/Additional Instructions: Thank you for choosing [facility] for your care! The following is a list of instructions, from your provider, to follow upon your discharge to ensure you have the optimal recovery from your recent injury or surgery. Follow-up care is a mccoy part of your treatment and safety. Be sure to make and go to all appointments, and call your doctor if you are having problems. If you do not already have a follow-up appointment made, call Dr. Rubin's office in the next 1-3 days to make follow up appointment for 1 weeks at [phone]. It is also a good idea to know your test results and keep a list of the medicines you take. Medications will be prescribed for you at your provider?s discretion. These medications are to be used as instructed;if they are taken more often that prescribed they will not be refilled early and in most cases will not be refilled at all. > When a refill is needed,you should contact our office 2-3 business days beforeyour prescription runs out. Medications will NOTbe refilled by traditional chinese herbalist providers after hours! > Many pain medications contain Tylenol (Acetaminophen). Do not consume more than 4,000 mg of Tylenol per day in total with any combination of medications. > Pain medications can cause constipation. Please use an over the counter stool softener as directed, while taking pain medications. Consult your local pharmacist with questions or recommendations on stool softeners. If constipation persists, contact our office or your primary care provider. > While under our care,you are not to receive pain medications or other controlled substances from any other provider unless our office is notified and approves. Any attempts to do so will result in refusal to prescribe any further pain medications and possible dismissal from our practice. ? Follow-up in 1 week in clinic. Keep dressing on ? Walking is essential for the healing process after surgery. We would like you to slowly advance your walking. This should be done on relatively flat clear ground (inside or out) or can be done on a treadmill. Remember this goal does not have to happen all at once, slowly increase your distance and duration. This can be broken into more more than one walk per day as tolerated. Patients who walk as directed after surgery rarely require Physical Therapy. In the unlikely event this issue arises your provider will direct hospital staff to make the appropriate arrangements. ? No lifting over 5 pounds {a gallon of milk) or bending/twisting until further notice. Each of these activities places an unnecessary amount of stress onto the body and can impede the delicate healing process. > Instead of bending at the waist, keep your back straight and bend at the knees. > Instead of twisting your torso, keep your back straight and turn your entire body with your feet. ? You may sleep in any position which makes you comfortable.Many patients find comfort sleeping in a reclining chair. It is not abnormal to have difficulty sleeping for the first several weeks following your surgery. We recommend trying Benadryl or Tylenol PM as directed to help with your sleeping difficulties. Both medications are over the counter and available without prescription. ? NO SMOKING!!!Smoking dramatically increases the probability of developing postoperative wound infections. ? Common complaints after lumbar and/or thoracic spine surgery include, but are not limited to: numbness and/or tingling in the legs, pain around the incision and surrounding tissues, muscle spasms, or stiffness of the middle to low back. Contact our office if these symptoms persist or if an acute change occurs. ? No driving for the first 3-5 days, and not while taking narcotics until seen at your follow-up appointment and cleared.There are no restrictions for riding on short trips, however if you take a longer trip, arrangements should be made to make regular stops to get out of the vehicle and stretch . ? Swelling is an unfortunate event that will take place with any surgery and is the primary source of your postoperative discomfort. While walking and regular approved activities helps control inflammation, there are additional steps you can take to minimize swelling. > Place ice over the surgical site and surrounding tissue for twenty minutes, followed by applying a low/medium heat (heating pad) for an additional twenty minutes every 1-2 hours as needed for pain relief. > You may use of over the counter anti-inflammatory medications (Ibuprofen, Motrin, Aleve, Advil, etc) as directed on the package label. These types of medicines will significantly reduce the amount of discomfort you experience after surgery from swelling. It should be noted that if you have an allergy to any of these medications, or a history of ulcers or kidney disease you should consult your primary care provider prior to starting these medications. Discharge Attestations Time Spent in Discharge Care*: less than 30 min Status at Discharge: Cognitive status at discharge: mildly impaired cognition , Behavioral status at discharge: cooperative , Functional status at discharge: other assisted ambulation , Overall status at discharge: patient has a new baseline Quality Metrics Clinical Quality Measures [ No reported AMI, CVA or VTE this stay] Coding Level of Care Code Acute Code for Chg Fwd Diagnoses Lumbar stenosis with neurogenic claudication M48.062 Primary hypertension I10 Hypertension type: primary hypertension Mild cognitive impairment with memory loss G31.84 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
[2025-03-23] MEDS: magnesium sulfate premix 2 GM/50 ML PIGGYBACK IV (09:15)
[2025-03-23] MEDS: heparin 5,000 unit/mL INJ 1 mL 5000 UNIT SUBCUT (09:16)
[2025-03-23] MEDS: CYCLOBENZAPRINE HCL 5 MG TABLET PO (09:28)
[2025-03-23] MEDS: HYDROcodone-acetaminophen 5-325 mg Tablet PO (09:28)
[2025-03-23 11:30] VITALS: BP 127/70; PULSE 99; RESP 18; TEMP 36.9; O2SAT 92
--- NOTE | 2025-03-23 12:04 | PC.SOCIAL ---
*IMM Update* Patient received copy of Important Message from Medicare, Initialed and dated in chart.
== END 2025-03-23 11:57 | disposition skilled nursing facility (03) | DRG 457 ==
LOC: MEDSURG 15:23 → ICU 18:33 → MEDSURG 03-17 12:03
PROVIDERS: Internal Medicine; Registered Nurse; Student in an Organized Health Care Education/Training Program; Admitting Provider Orthopaedic Surgery; PCP Family Medicine; Visit Provider Orthopaedic Surgery
PROC: 0RG70K1 Fusion of 2 to 7 Thoracic Vertebral Joints with Nonautologous Tissue Substitute, Posterior Approach, Posterior Column, Open Approach (ICD-10-PCS; principal; 2025-03-16 10:00)
PROC: 0RG70K1 Fusion of 2 to 7 Thoracic Vertebral Joints with Nonautologous Tissue Substitute, Posterior Approach, Posterior Column, Open Approach (ICD-10-PCS; 2025-03-16 10:00)
PROC: 0RG70K1 Fusion of 2 to 7 Thoracic Vertebral Joints with Nonautologous Tissue Substitute, Posterior Approach, Posterior Column, Open Approach (ICD-10-PCS; CPT 22612; 2025-03-16 10:00)
PROC: 0RG70K1 Fusion of 2 to 7 Thoracic Vertebral Joints with Nonautologous Tissue Substitute, Posterior Approach, Posterior Column, Open Approach (ICD-10-PCS; 2025-03-16 10:00)
PROC: 0RG70K1 Fusion of 2 to 7 Thoracic Vertebral Joints with Nonautologous Tissue Substitute, Posterior Approach, Posterior Column, Open Approach (ICD-10-PCS; CPT 27280; 2025-03-16 10:00)
DX: M48.062 Spinal stenosis, lumbar region with neurogenic claudication (principal); D62 Acute posthemorrhagic anemia; M41.56 Other secondary scoliosis, lumbar region; I50.30 Unspecified diastolic (congestive) heart failure; E83.42 Hypomagnesemia; M17.12 Unilateral primary osteoarthritis, left knee; M19.042 Primary osteoarthritis, left hand; M19.041 Primary osteoarthritis, right hand; I73.00 Raynaud's syndrome without gangrene; M79.7 Fibromyalgia; K21.9 Gastro-esophageal reflux disease without esophagitis; E78.5 Hyperlipidemia, unspecified; Z86.73 Personal history of transient ischemic attack (TIA), and cerebral infarction without residual deficits; I25.10 Atherosclerotic heart disease of native coronary artery without angina pectoris; I11.0 Hypertensive heart disease with heart failure; Z86.711 Personal history of pulmonary embolism; E66.3 Overweight; Z68.35 Body mass index [BMI] 35.0-35.9, adult; M35.00 Sjogren syndrome, unspecified; F32.A Depression, unspecified; E06.3 Autoimmune thyroiditis; G31.84 Mild cognitive impairment of uncertain or unknown etiology; Z87.440 Personal history of urinary (tract) infections; I95.81 Postprocedural hypotension; R09.02 Hypoxemia
CPT/HCPCS: 36415; 36430; 51702; 72100; 76000; 76882; 80048; 80053; 81001; 82803; 83735; 84100; 85014; 85018; 85025; 86850; 86900; 86920; 96372; 97116; 97163; 97167; 97530; 97535; A4649; A9281; C1713; C1734; G0378; J0690; J1171; J1644; J2270; J2371; J2405; J2704; J3010; J3260; J3373; J3475; J7030; J7120; J9999; L8699; P9016

== ENCOUNTER → 2025-03-29 14:15 | Outpatient (BNVA) | payer MEDICARE, OTHER, SELFPAY | PROVIDERS: PCP Family Medicine; Visit Provider Orthopaedic Surgery | DX: Z98.890 Other specified postprocedural states (principal); Z98.1 Arthrodesis status | CPT/HCPCS: 99024 ==